=== PATIENT | male | born 1995 | race African-American/Black ===

== ENCOUNTER 2023-05-15 18:05 | Emergency (ER) | payer MEDICAID, SELFPAY ==
[2023-05-15 18:06] VITALS: BP 145/101; PULSE 84; RESP 16; TEMP 36.4; O2SAT 97; BMI 24.2
--- NOTE | 2023-05-15 18:41 | ED.VIS.GI ---
HPI HPI - GI History of Present Illness Chief Complaint: GI Bleed Informant: patient Nausea/Vomiting/Emesis GI Symptom: Positive for Nausea and Vomiting Onset: Today Quality: Positive for Blood streaks Episodes: 2 Diarrhea/Melena/Hematochezia GI Symptom: Negative for Diarrhea, Melena or Hematochezia Associated Symptoms Associated Symptoms: Negative for Dysuria, Frequency or Hematuria Narrative Narrative: Patient presents with 2 episodes of hematemesis that occurred today. Patient states that he woke up this morning and had some vomiting. Patient states he was streaks of blood in it. Patient states that he went to work today. Patient states that he vomited while he was at work. Patient admits to a few tablespoons of blood in his emesis. Patient states he was also having some blood streaks in his emesis. Patient denies any diarrhea, melena, or hematochezia. Patient denies any urinary complaints. Patient does admit to alcohol use of approximately 8-10 beers per day. Patient also admits to occasional marijuana use. PFSH PFS Medical History no medical history no medical history Home Medications omeprazole 20 mg capsule,delayed release 20 mg PO DAILY #30 CAPSULES 05/15/23 [Rx Last Taken Unknown] Allergy/AdvReac Type Severity Reaction Status Date / Time No Known Allergies Allergy Verified 05/15/23 18:08 Surgical History (Updated 05/15/23 @ 18:[address] Oscar Garcia DO) History of herniorrhaphy Social History (Updated 05/15/23 @ 18:[address] Oscar Garcia DO) Smoking Status: Current every day smoker tobacco type: cigarettes alcohol intake: current alcohol intake frequency: 3 or more drinks per day Alcohol type: beer substance use type: marijuana ROS ROS ED Constitutional Constitutional ED: Denies chills or fever(s) Eyes Eyes: Denies blurry vision or change in vision ENT ENT ED: Denies rhinorrhea or sore throat Cardiovascular Cardiovascular: Denies chest pain or palpitations Respiratory/Chest Respiratory/Chest: Denies cough or dyspnea Gastrointestinal Gastrointestinal: Reports vomiting; Denies nausea Genitourinary Genitourinary ED: Denies dysuria or hematuria Musculoskeletal Musculoskeletal: Denies back pain or neck pain Integumentary Denies abscess or rash Neurologic Neurologic: Denies headache(s) or weakness Allergic/Immunologic Allergic/Immunologic ED: Denies mouth swelling or urticaria EXAM Physical Exam Const Vital Signs: 05/15/23 18:06 Temperature 97.5 F L Temperature Source Temporal Pulse Rate 84 Respiratory Rate 16 Blood Pressure 145/101 H Blood Pressure Mean 115 Pulse Ox 97 Oxygen Delivery Method Room Air Positive well nourished and well developed General Appearance ED: well developed and NAD HEENT Reports moist mucous membranes and dry mucous membranes Mouth ED: Yes dry mucous membranes Mouth: dry mucous membranes Resp normal respiratory effort and clear to auscultation bilaterally Cardio regular rate and regular rhythm GI non-tender and non-distended Palpation: soft Extremity full ROM General Extremety ED: Negative for edema or tenderness General Extremity: Negative for edema Neuro CN's II-XII intact bilaterally, moves all extremities and no sensory deficits noted Sensorium / Orientation: alert Motor Exam: strength 5/5 throughout Psych mental status grossly normal and thought process normal MDM MDM MDM Narrative Medical decision making narrative: Differential diagnosis includes alcoholic gastritis, coagulopathy, Estrellita-Mccoy tear, pancreatitis, and peptic ulcer disease. CBC will be obtained to assess for leukocytosis and anemia. Comprehensive metabolic profile will be obtained to assess for hepatic function, renal function, and electrolyte abnormality. Lipase will be obtained to assess for pancreatitis. PT was INR and PTT will be obtained to assess for coagulopathy. Chest x-ray will be obtained to assess for pneumonia and pneumothorax. Lab Data Attestation: I reviewed the patient's lab results. Lab results narrative: CBC was reviewed and was within normal limits. PT was INR and PTT was reviewed and was within normal limits. Comprehensive metabolic profile was reviewed. AST was slightly elevated at 99 and ALT was 109. The remainder was within normal limits. Lipase was reviewed and was normal at 48. Labs: Laboratory Results - last 24 hr 05/15/23 19:05 WBC 5.5 RBC 4.84 Hgb 15.7 Hct 45.6 MCV 94.2 H MCH 32.4 H MCHC 34.4 RDW Std Deviation 47.7 H RDW Coeff of Man 13.6 Plt Count 234 MPV 9.2 Immature Gran % (Auto) 0.600 Neut % (Auto) 67.1 Lymph % (Auto) 18.7 L Price % (Auto) 8.8 Eos % (Auto) 3.7 Baso % (Auto) 1.1 H Absolute Neuts (auto) 3.7 Absolute Lymphs (auto) 1.02 Nucleated RBC % 0 PT 12.4 INR 0.9 APTT 27.1 Sodium 140 Potassium 4.1 Chloride 106 Carbon Dioxide 26.0 Anion Gap 8 BUN 9 Creatinine 1.11 Estim Creat Clear Calc 94.29 Est GFR (MDRD) Af Amer 103 Est GFR (MDRD) Non-Af 85 BUN/Creatinine Ratio 8.1 L Glucose 93 Calcium 9.1 Total Bilirubin 0.30 AST 99 H ALT 109 H Alkaline Phosphatase 88 Total Protein 8.3 H Albumin 4.2 Globulin 4.1 Albumin/Globulin Ratio 1.0 Lipase 48 Radiography Chest X-Ray - ED: 2 View, Read by ED Physician, Read by Radiologist and No Acute Disease Diagnostic Testing: Clinical Impression(s) from Imaging Studies Chest X-Ray 05/15/23 19:11 IMPRESSION: Normal x-ray examination of the chest. Electronically Signed: Anibal Leal MD at 19:59 EST Reading Location ID and State: [address] [place] [address] Tel , Service support , PA and lateral chest x-ray was obtained. There are 2 views. On my independent interpretation, lung rueda are clear. There is normal cardiac silhouette. Bony thorax is normal. There is no acute process noted. Radiologist also interpreted the x-ray and agrees. Treatment and Re-Evaluation :: Patient was given IV fluids, Zofran, and Protonix. Patient is feeling better on reevaluation. Patient was advised of his findings. Patient was instructed to stop drinking alcohol. Patient was advised that this most likely alcoholic gastritis. Patient was given a prescription for omeprazole. Patient was instructed to follow-up with his primary care physician in 5 to 7 days. Patient understood and was agreeable with the plan. All questions were answered. Discharge Plan Triage Chief Complaint: GI Bleed ED Provider: Oscar Garcia Dx/Rx/DC Orders Clinical Impression: Alcoholic gastritis with bleeding Instructions: ED Gastritis (Adult) Prescriptions: New omeprazole [omeprazole] 20 mg capsule,delayed release(DR/EC) 20 mg PO DAILY Qty: 30 0RF Primary Care Provider: Care Physician,No Primary Referrals: Marielena Lema [Non-Staff] - 5-7 Days Care Physician,No Primary [Primary Care Provider] - [facility] [Non-Staff] - 5-7 Days Disposition Disposition: Home, Self Care
--- NOTE | 2023-05-15 19:11 | RAD_ITS ---
STUDY: X-RAY CHEST REASON FOR EXAM: Male, 27 years old. Vomiting TECHNIQUE: Frontal and lateral views of the chest. COMPARISON: None. FINDINGS: The lungs are clear and expanded. There is no demonstrated pleural abnormality. Normal size heart. Normal mediastinum and keila. Normal visualized pulmonary arteries. Normal visualized aortic arch and descending thoracic aorta. Normal visualized thoracic spine. Normal visualized ribs, clavicles, and shoulders. There is no demonstrated abnormality of the visualized soft tissue structures of the upper abdomen. RAD/Chest PA and Lateral IMPRESSION: Normal x-ray examination of the chest. Electronically Signed: Anibal Leal MD at 19:59 EST ,
[2023-05-15 19:21] LABS: Absolute Lymphocyte Count 1.02 X10^3/uL (0.83-4.51); Absolute Neutrophil Count 3.7 X10^3/uL (2.0-7.7); Basophil# 0.06 X10^3/uL; Basophil% 1.1 % (0-1); Eosinophils% 3.7 % (0-5); Hematocrit 45.6 % (40-54); Hemoglobin 15.7 g/dL (13.0-16.5); Lymphocyte # 1.02 X10^3/ul (0.83-4.51); Lymphocyte % 18.7 % (19-41); Mean Corp Hgb Conc 34.4 g/dL (32-36); Mean Corpuscular Hgb 32.4 pg (27.0-32.0); Mean Corpuscular Volume 94.2 fL (80-94); Mean Platelet Vol. 9.2 fl (6.2-12.0); Monocyte# 0.48 X10^3/uL; Monocyte% 8.8 % (0-10); NRBC Flagged by Analyzer 0 % (0-5); Neutrophil # 3.66 X10^3/uL (2.7-7.7); Neutrophil % 67.1 % (47-70); Platelet Count 234 K/mm3 (150-450); RBC Distribution Width CV 13.6 % (11.6-14.6); RBC Distribution Width SD 47.7 fl (35.1-43.9); Red Blood Count 4.84 M/mm3 (4.6-6.2); White Blood Count 5.5 K/mm3 (4.4-11.0)
[2023-05-15 19:30] LABS: International Normalized Ratio 0.9; Partial Thromboplast Time 27.1 Seconds (24.1-36.2); Prothrombin Time (Protime)PT. 12.4 SECONDS (11.7-14.9)
[2023-05-15] MEDS: Pantoprazole Sodium 80 MG in 0.9% Normal Saline (50mL Bag) 15 ML 420 MG IV BOLUS (19:31)
[2023-05-15] MEDS: 0.9% Normal Saline (1000mL) 1,000 ML 1000 ML IV (19:32)
[2023-05-15] MEDS: Ondansetron 4 MG/2 ML Vial IV (19:32)
[2023-05-15 19:42] LABS: AST(SGOT) 99 U/L (15-37); Alanine Aminotransfer ALT/SGPT 109 U/L (16-61); Albumin, Serum 4.2 g/dL (3.2-5.0); Alkaline Phosphatase 88 U/L (45-117); Anion Gap 8 (5-15); BUN 9 mg/dL (7-18); BUN/Creat Ratio 8.1 RATIO (10-20); Calcium,Total 9.1 mg/dL (8.5-10.1); Chloride 106 mmol/L (98-107); Creatinine, Serum 1.11 mg/dL (0.70-1.30); EST Glomerular Filtration Rate 85 mL/min (>60); Est Glom Filt Rate - Afr Amer 103 mL/min (>60); Estimated Creatinine Clearance 94.29 ml/min; Globulin 4.1 g/dL (2.2-4.2); Glucose 93 mg/dL (74-106); Lipase 48 U/L (13-75); Potassium 4.1 mmol/L (3.5-5.1); Protein, Total 8.3 g/dL (6.4-8.2); Sodium Level 140 mmol/L (136-145)
[2023-05-15 20:46] VITALS: BP 120/74; PULSE 87; RESP 16; TEMP 36.3; O2SAT 97
[2023-05-15 20:52] VITALS: BP 123/87; PULSE 87; RESP 16; TEMP 36.2; O2SAT 97
== END 2023-05-15 21:02 | disposition home or self-care (01) ==
PROVIDERS: Emergency Provider Emergency Medicine; Visit Provider Emergency Medicine
DX: K29.21 Alcoholic gastritis with bleeding (principal); F17.210 Nicotine dependence, cigarettes, uncomplicated; F10.90 Alcohol use, unspecified, uncomplicated
CPT/HCPCS: 71046; 80053; 83690; 85025; 85610; 85730; 96361; 96374; 96375; 99283; J7030; J2405; J3490

== ENCOUNTER 2023-06-13 00:32 | Emergency (ER) | payer MEDICAID, SELFPAY ==
[2023-06-13 00:33] VITALS: BP 145/96; PULSE 87; RESP 16; TEMP 36.1; O2SAT 99; BMI 21.9
[2023-06-13 00:35] VITALS: BP 145/86; PULSE 87; RESP 16; TEMP 36.1; O2SAT 99
--- NOTE | 2023-06-13 00:43 | EX.ED.DYSGE1 ---
HPI History of Present Illness Chief Complaint: Abscess Detail of Chief Complaint: Facial abscess Informant: patient Narrative Narrative: Patient presents with complaint of a facial abscess to the right lower jaw. Patient states that he had 1 on the left that had to be I&D in the past. Patient does have a dean. He noticed some swelling a month ago but recently progressed. Denies fevers or chills or sweats. PFSH PFSH Home Medications omeprazole 20 mg capsule,delayed release 20 mg PO DAILY #30 CAPSULES 05/15/23 [Rx Last Taken Unknown] clindamycin HCl 300 mg capsule (Cleocin HCl) 300 mg PO Q6H #40 CAPSULES 06/13/23 [Rx Last Taken Unknown] Allergy/AdvReac Type Severity Reaction Status Date / Time No Known Allergies Allergy Verified 06/13/23 00:33 Surgical History History of herniorrhaphy Social History (Updated 05/15/23 @ 18:[address] Oscar Garcia, DO) Smoking Status: Current every day smoker tobacco type: cigarettes alcohol intake: current alcohol intake frequency: 3 or more drinks per day Alcohol type: beer substance use type: marijuana ROS ROS ED Review of Systems ROS Unobtainable: other Constitutional Constitutional ED: Reports lethargy; Denies chills, fever(s), sweats or weight loss Eyes Eyes: Denies blurry vision, change in vision or diplopia ENT ENT ED: Reports other Details: Right facial abscess ; Denies rhinorrhea or sore throat Cardiovascular Cardiovascular: Denies chest pain, orthopnea or racing heartbeat Respiratory/Chest Respiratory/Chest: Denies cough, dyspnea, dyspnea on exertion, orthopnea or sputum Gastrointestinal Gastrointestinal: Denies abdominal pain, diarrhea, nausea or vomiting Genitourinary Genitourinary ED: Denies dysuria, hematuria or urinary frequency Musculoskeletal Musculoskeletal: Denies arthralgias, back pain, myalgias or neck pain Integumentary Denies abscess, Abrasions or rash Neurologic Neurologic: Denies headache(s) or weakness Psychiatric Psychiatric: Denies anxiety, depression or suicidal thoughts Endocrine Endocrinology: Denies polydipsia, polyphagia or polyuria Hematologic/Lymphatic Hematologic/Lymphatic: Denies easy bleeding, easy bruising or lymphadenopathy Allergic/Immunologic Allergic/Immunologic ED: Denies mouth swelling, tongue swelling or urticaria EXAM Physical Exam Const Vital Signs: 06/13/23 00:33 06/13/23 00:35 06/13/23 01:16 Temperature 97 F L 97 F L 97 F L Temperature Source Temporal Temporal Pulse Rate 87 87 87 Respiratory Rate 16 16 16 Blood Pressure 145/96 H 145/86 H 145/86 H Blood Pressure Mean 112 105 105 Pulse Ox 99 99 99 Positive well nourished and well developed General Appearance ED: well developed and NAD HEENT Reports TM's clear and moist mucous membranes HEENT Narrative: Patient has a soft tissue swelling over the right lower mandible. He does have a dean. There is fluctuance and faint erythema. No dental tenderness. normocephalic and atraumatic; Negative for trauma or tenderness Tympanic Membrane ED: Yes TM's clear Eyes PERRL and EOMs intact bilaterally General Eye ED: Negative for pale conjunctiva or scleral icterus Neck no lymphadenopathy, supple and no JVD General: Negative for tenderness Chest Wall inspection of chest normal and palpation of chest normal Chest: Negative for tenderness Resp normal respiratory effort and clear to auscultation bilaterally Effort and Inspection: Negative for respiratory distress or pain with movement Auscultation: Negative for rhonchi, wheezes or diminished lung sounds Cardio regular rate, regular rhythm, S1 normal heart sound, S2 normal heart sound and no murmurs Peripheral Pulses: pulses 2+ throughout GI normal to inspection, nondistended, normoactive bowel sounds, soft to palpation, non-tender, non-distended and no masses Back/Spine no CVA tenderness and no thoracic nor lumbar tenderness Extremity normal to inspection General Extremety ED: Negative for edema General Extremity: Negative for edema Neuro oriented x3, CN's II-XII intact bilaterally, no sensory deficits noted and gait normal Sensorium / Orientation: awake, alert, oriented to person, oriented to place and oriented to time Motor Exam: strength 5/5 throughout and strength abnormal Psych mental status grossly normal Skin no rashes or lesions noted and no wounds MDM MDM MDM Narrative Medical decision making narrative: Patient presents with a right-sided facial abscess with a dean. He has had similar abscess on the opposite side. He was offered incision and drainage which he agreed to. See procedure note. Patient will be started on clindamycin. He will be given referral to primary care for follow-up within next 3 to 5 days. Advised to return if increasing pain, swelling, fevers or chills, or condition worsening way. Procedures Other Procedures Procedure(s): Incision and drainage of suspected abscess. Area anesthetized locally with 1% lidocaine total of 3 cc. Skin cleansed with Shur-Clens and irrigated with saline. Using an 11 blade a 2 cm incision made into the fluctuant portion of suspected abscess and large amount of free-flowing purulent debris was expressed. There seem to be a thick rind associated with this that was also removed. Patient Toller procedure well. No significant bleeding. Clean dressing applied. Discharge Plan Triage Chief Complaint: Abscess ED Provider: Flaca Yoon Dx/Rx/DC Orders Clinical Impression: Abscess of face Instructions: ED Abscess Incision And Drainage Prescriptions: New clindamycin HCl [Cleocin HCl] 300 mg capsule 300 mg PO Q6H Qty: 40 0RF No Action omeprazole [omeprazole] 20 mg capsule,delayed release(DR/EC) 20 mg PO DAILY Qty: 30 0RF Stand Alone Forms: ED Work / School Excuse Primary Care Provider: Care Physician,No Primary Referrals: Kevin Salas MD [Med Staff - Active Staff] - 3-5 Days Care Physician,No Primary [Primary Care Provider] - Disposition Disposition: Home, Self Care Discharge Date/Time: 06/13/23 01:17
[2023-06-13] MEDS: Clindamycin HCl 150 MG Capsule 300 MG PO (01:08)
[2023-06-13 01:16] VITALS: BP 145/86; PULSE 87; RESP 16; TEMP 36.1; O2SAT 99
== END 2023-06-13 01:17 | disposition home or self-care (01) ==
LOC: ED 01:09
PROVIDERS: Emergency Provider Emergency Medicine; Visit Provider Emergency Medicine
DX: L02.01 Cutaneous abscess of face (principal); F17.210 Nicotine dependence, cigarettes, uncomplicated
CPT/HCPCS: 10060; 99282

== ENCOUNTER 2023-07-28 14:18 | Emergency (ER) | payer MEDICAID, SELFPAY ==
[2023-07-28 14:19] VITALS: BP 143/84; PULSE 113; PULSE 114; RESP 12; RESP 14; TEMP 36.1; O2SAT 97; BMI 24.4
[2023-07-28 14:21] VITALS: BP 143/84; PULSE 114; RESP 14; TEMP 36.1; O2SAT 100
--- NOTE | 2023-07-28 15:09 | EX.ED.DYSGE1 ---
HPI History of Present Illness Chief Complaint: Abscess PFSH PFSH Home Medications omeprazole 20 mg capsule,delayed release 20 mg PO DAILY #30 CAPSULES 05/15/23 [Rx Last Taken Unknown] clindamycin HCl 300 mg capsule (Cleocin HCl) 300 mg PO Q6H #40 CAPSULES 06/13/23 [Rx Last Taken Unknown] clindamycin HCl 300 mg capsule 300 mg PO Q8H #30 caps 07/28/23 [Rx Last Taken Unknown] Allergy/AdvReac Type Severity Reaction Status Date / Time No Known Allergies Allergy Verified 06/13/23 00:33 Surgical History History of herniorrhaphy Social History (Updated 05/15/23 @ 18:[address] Oscar Garcia, DO) Smoking Status: Current every day smoker tobacco type: cigarettes alcohol intake: current alcohol intake frequency: 3 or more drinks per day Alcohol type: beer substance use type: marijuana EXAM Physical Exam Const Vital Signs: 07/28/23 14:19 07/28/23 14:19 07/28/23 14:21 Temperature 97 F L 97 F L Temperature Source Temporal Temporal Pulse Rate 114 H 113 H 114 H Respiratory Rate 12 14 14 Blood Pressure 143/84 H 143/84 H 143/84 H Blood Pressure Mean 103 103 103 Pulse Ox 97 97 100 Oxygen Delivery Method Room Air Room Air Room Air [facility] MDM Narrative Medical decision making narrative: HISTORY OF PRESENT ILLNESS: 27-year-old male presents with concern for facial abscess. He states he was seen here recently for similar and had it drained however he has not taken his antibiotics. He states REVIEW OF SYSTEMS: Pertinent positives: Facial swelling Pertinent negatives: Difficulty swallowing, vomiting PHYSICAL EXAM: Nursing triage notes reviewed, Vital signs reviewed Constitutional: please see mdm HENT: MMM, large 3 x 3 cm area of fluctuance induration to the right jaw consistent with abscess. No crepitus or bullae noted. No submandibular edema. Uvula midline. Eyes: Pupils equal round and reactive to light, Extraocular muscles intact Neck: No stridor, no JVD, full neck ROM Lungs: Clear to auscultation, No wheezing or rales. No increased work of breathing, no conversational dyspnea, no accessory muscle use, no nasal flaring. No respiratory distress noted Heart: Regular rate and rhythm, No murmurs, No rubs and No gallops, 2+ distal pulses (radial, femoral, posterior tibial) in all extremities Skin: No abscess as noted above MEDICAL DECISION MAKING: Chief Complaint: Facial abscess External records reviewed: Reviewed prior procedure note detailing incision and drainage in May 2022 Factors affecting care: History of facial abscess Social determinants of health: none History obtained from others: none Consults: none MDM Narrative: Patient was initially tachycardic otherwise afebrile. Exam with evidence of abscess. No submandibular edema noted I considered the following differential diagnosis: Cellulitis, abscess, necrotizing fasciitis Performed incision and drainage as below Procedure: Incision and Drainage simple abscess noted to right jaw The procedure was performed by myself. Location: Right jaw Risks and benefits: Risks, benefits, and alternatives were discussed. Questions were sought and answered, and verbal consent provided for the procedure. Anesthesia: 1% lidocaine without epinephrine Procedure Description: Used 18-gauge needle with aspiration of 3 cc of purulent fluid The patient tolerated the procedure well without complications. Gave p.o. clindamycin for 10-day course. Gave PCP follow-up. Given strict return precautions. The patient and/or family, caregivers express understanding. The patient and/or family, caregivers agrees with the plan. Shared decision making: I will have a discussion with the patient and or visitors regarding risk/benefits of further testing or admission. They will be made aware of of the risk/benefits inherent in this decision they will be given the opportunity to voice understanding. Total critical care time today provided was at least 0 minutes. This excludes separately billable procedures. Critical care time (if documented) is secondary to the patient having high probability of clinically significant/life threatening deterioration in the patient's condition which required my urgent intervention. Impression: 1. Facial abscess 2. Tachycardia Dispo: Discharge home This note was generated with [employer] dictation software. It may contain incorrect words, spelling, and punctuation that were not noted in review of the chart prior to signing. Discharge Plan Triage Chief Complaint: Abscess ED Provider: Hira Barakat Dx/Rx/DC Orders Instructions: ED Abscess Incision And Drainage Prescriptions: New clindamycin HCl 300 mg capsule 300 mg PO Q8H Qty: 30 0RF No Action omeprazole [omeprazole] 20 mg capsule,delayed release(DR/EC) 20 mg PO DAILY Qty: 30 0RF clindamycin HCl [Cleocin HCl] 300 mg capsule 300 mg PO Q6H Qty: 40 0RF Stand Alone Forms: ED Work / School Excuse Primary Care Provider: Care Physician,No Primary Referrals: Kevin Salas MD [Med Staff - Active Staff] - Activity Restrictions/Additional Instructions: Thank you for trusting us with your care today! Please take Tylenol (2 pills, 650 mg), ibuprofen (2 pills, 400 mg) every 6 hours as needed for pain and fever control. Please take clindamycin as prescribed. Please continue entire course Please wash your face twice a day. Please try to keep your facial hair and short as to facilitate bacterial clearance. Please return to the emergency department if your symptoms change or worsen. Specifically develop swelling underneath anything jaw, difficulty swallowing, vomiting or inability tolerate antibiotics by mouth Please follow with your primary care physician for further outpatient evaluation and management. Disposition Disposition: Home, Self Care
[2023-07-28] MEDS: Clindamycin HCl 150 MG Capsule 300 MG PO (15:54)
== END 2023-07-28 16:31 | disposition home or self-care (01) ==
LOC: ED 16:10
PROVIDERS: Emergency Provider Emergency Medicine; Visit Provider Emergency Medicine
DX: L02.01 Cutaneous abscess of face (principal); R00.0 Tachycardia, unspecified; F17.210 Nicotine dependence, cigarettes, uncomplicated
CPT/HCPCS: 10060; 99282

== ENCOUNTER 2023-11-23 03:20 | Emergency (ER) | payer MEDICAID, SELFPAY ==
[2023-11-23 03:21] VITALS: BP 141/84; PULSE 79; RESP 20; TEMP 36.7; O2SAT 100; BMI 22.5
[2023-11-23 03:24] VITALS: BP 141/84; PULSE 79; RESP 20; TEMP 36.7; O2SAT 100
--- NOTE | 2023-11-23 03:44 | EDS_ITS ---
HPI History of Present Illness Chief Complaint: Other, Pain/Inj Informant: patient Narrative Narrative: Patient is a 28-year-old male who reports a history of gastritis for which he takes omeprazole. He also reports he has recently been seen for a right sided facial abscess. He states that he took the antibiotic for a few days which was clindamycin and then stopped it. He states that it has been a few weeks since he used the antibiotic. He reports that over the last 1 to 2 days he has noticed swelling and pain along the middle of his lower lip/chin. He denies any trauma fevers or chills. He states that hurts to open his mouth but he does not have any difficulty breathing or swallowing. He is concerned about potential infection and therefore comes in for evaluation [facility] Home Medications ?Medication ?Instructions ?Recorded ?Last Taken ?Type amoxicillin 875 mg-potassium 1 tab PO BID 10 days #20 tabs 11/23/23 Unknown Rx clavulanate 125 mg tablet ibuprofen 600 mg tablet 600 mg PO 4X/DAY PRN pain #40 tabs 11/23/23 Unknown Rx omeprazole 20 mg capsule,delayed 40 mg PO DAILY 11/23/23 Unknown History release oxycodone-acetaminophen 5 mg-325 1 tab PO Q6H PRN pain 3 days #12 11/23/23 Unknown Rx mg tablet (Percocet) tabs Allergy/AdvReac Type Severity Reaction Status Date / Time No Known Allergies Allergy Verified 06/13/23 00:33 Surgical History History of herniorrhaphy Social History (Updated 05/15/23 @ 18:[address] Oscar Garcia, ) Smoking Status: Current every day smoker tobacco type: cigarettes alcohol intake: current alcohol intake frequency: 3 or more drinks per day Alcohol type: beer substance use type: marijuana ROS ROS ED Constitutional Constitutional ED: Denies chills or fever(s) ENT ENT ED: Reports other Details: Positive lip/chin pain and swelling ; Denies sore throat Cardiovascular Cardiovascular: Denies chest pain Respiratory/Chest Respiratory/Chest: Denies cough or dyspnea Gastrointestinal Gastrointestinal: Denies abdominal pain, diarrhea, nausea or vomiting Genitourinary Genitourinary ED: Denies dysuria Musculoskeletal Musculoskeletal: Denies myalgias or neck pain Integumentary Reports abscess Neurologic Neurologic: Denies headache(s) Hematologic/Lymphatic Hematologic/Lymphatic: Denies easy bleeding or easy bruising Allergic/Immunologic Allergic/Immunologic ED: Denies mouth swelling, tongue swelling or urticaria EXAM Physical Exam Const Vital Signs: 11/23/23 03:21 11/23/23 03:24 11/23/23 03:25 Temperature 98.0 F 98.0 F Temperature Source Temporal Oral Pulse Rate 79 79 Respiratory Rate 20 H 20 H Respiratory Effort Normal Non-Labored Respiratory Pattern Normal Blood Pressure 141/84 H 141/84 H Blood Pressure Mean 103 103 Pulse Ox 100 100 Oxygen Delivery Method Room Air Room Air 11/23/23 03:51 Temperature 99.3 F H Temperature Source Pulse Rate 83 Respiratory Rate 16 Respiratory Effort Respiratory Pattern Blood Pressure 126/67 H Blood Pressure Mean 86 Pulse Ox 100 Oxygen Delivery Method Positive well nourished and well developed General Appearance ED: well developed HEENT HEENT Narrative: No findings of ANUG Scattered dental caries noted There is mild soft tissue swelling in the midline of the lower jaw consistent with developing dental abscess. No active drainage. No airway edema or compromise. No trismus change in voice or difficulty with secretions Eyes PERRL and EOMs intact bilaterally General Eye ED: Negative for scleral icterus Neck supple Neck Narrative: No brawny edema in the submental space to suggest Pop's angina Resp normal respiratory effort and clear to auscultation bilaterally Cardio regular rate and regular rhythm Extremity normal to inspection Neuro oriented x3, CN's II-XII intact bilaterally and no sensory deficits noted Sensorium / Orientation: alert Motor Exam: strength 5/5 throughout Psych mental status grossly normal Skin Skin Narrative: Soft tissue changes of erythema and induration that is roughly 1 x 2 cm in size to the anterior midline chin as documented above MDM MDM MDM Narrative Medical decision making narrative: Patient presented to the ER hypertensive otherwise with stable vitals. Differential diagnosis is for dental abscess versus soft tissue skin abscess versus posterior pharynx infection such as strep throat or peritonsillar abscess. By physical exam patient has no signs of ANUG and there are no signs of infection of the posterior pharynx such as strep or peritonsillar abscess. Physical exam shows changes consistent with developing early dental abscess. However he does not have findings of systemic infection nor is he had difficulty with secretions or airway compromise so there is no need for imaging or laboratory studies at this time. We discussed incision and drainage but the patient states that he does not want that performed. Therefore we will start with symptomatic care of antibiotics and salt water gargles and he agrees to return if the infection fails to improve or he has any difficulty swallowing or breathing. However at this time as he does not have airway compromise or respiratory distress and his physical exam does not suggest Pop's angina or ANUG or systemic infection he is otherwise safe for discharge History & Record Review Discussion w/independent historian: Patient and Friend Discharge Plan Triage Chief Complaint: Other, Pain/Inj ED Provider: Lauro Rodrigues Dx/Rx/DC Orders Clinical Impression: Abscess, dental, GERD (gastroesophageal reflux disease), Hypertension Instructions: Dental Abscess Prescriptions: New amoxicillin-pot clavulanate 875-125 mg tablet 1 tab PO BID 10 Days Qty: 20 0RF oxycodone-acetaminophen [Percocet] 5-325 mg tablet 1 tab PO Q6H PRN (Reason: pain) 3 Days Qty: 12 0RF ibuprofen 600 mg tablet 600 mg PO 4X/DAY PRN (Reason: pain) Qty: 40 0RF No Action omeprazole 20 mg capsule,delayed release(DR/EC) 40 mg PO DAILY Primary Care Provider: Lizzie Samayoa Referrals: Care Physician,No Primary [Non-Staff] - Activity Restrictions/Additional Instructions: For the next 3 days please take 1 Percocet and one 600 mg ibuprofen at the same time to help control your pain better. Take the antibiotic as directed to resolve the infection and use salt water gargles to help shrink the area up as well. If there is no improvement or you have any further concerns please return to the ER for repeat evaluation. Otherwise follow-up with your dentist secondary to your abscess Print Language: Hebrew Disposition Disposition: Home, Self Care Discharge Date/Time: 11/23/23 04:03
[2023-11-23] MEDS: Amox/Clavulanate 875 MG Tablet PO (03:50)
[2023-11-23] MEDS: oxyCODONE 5 MG Tablet 10 MG PO (03:50)
[2023-11-23 03:51] VITALS: BP 126/67; PULSE 83; RESP 16; TEMP 37.4; O2SAT 100
== END 2023-11-23 04:03 | disposition home or self-care (01) ==
LOC: ED 04:00
PROVIDERS: Emergency Provider Emergency Medicine; PCP Family Medicine; Visit Provider Emergency Medicine
DX: K04.7 Periapical abscess without sinus (principal); K21.9 Gastro-esophageal reflux disease without esophagitis; I10 Essential (primary) hypertension; Z79.899 Other long term (current) drug therapy; F17.210 Nicotine dependence, cigarettes, uncomplicated; K02.9 Dental caries, unspecified
CPT/HCPCS: 99284

== ENCOUNTER 2024-01-20 06:54 | Observation (INO) | payer MEDICAID, SELFPAY ==
[2024-01-20] VITALS (14 sets, daily range): BP systolic 83–127; BP diastolic 42–76; PULSE 71–91; RESP 12–20; TEMP 36.3–37.1; O2SAT 95–100; BMI 23.0; BMI 23.1
--- NOTE | 2024-01-20 | FLU_PTH ---
PATIENT: JORGE HERNANDEZ LOC: MS3 U#:[id number] AGE/SX: 28/M ROOM: [facility]317 RE01/20/[address]: Dr. Guido Petit DO : 1995 BED: 1 DIS: 01/22/2024 SPEC #: [id number] RECD: 01/21/24 07:31 STATUS: PARKER BRANDON #: [id number] ROQUE: 01/20/24 00:[address]: Guido Petit DEPT: CYTOLOGY RECD BY: Rosangela Velazquez ENTERED: 01/21/24 07:32 SP TYPE: Fluid OTHR DR: Lizzie Samayoa [facility], DO Tissues: PARACENTESIS FLUID Procedures: Special Stain Group II Surgery Specimen Level IV Cytospin Fluid HEADER OPERATION: Ultrasound guided right paracentesis PRE-OP DIAGNOSIS: Ascites TISSUE SUBMITTED: Paracentesis fluid for cytology DIAGNOSIS CYTOLOGY Paracentesis fluid for cytology (cytospin and cellblock): Negative for malignant cells. See comment. 01/22/2024 COMMENT Clinical correlation and appropriate follow up are necessary. CYTOLOGY STUDY Slides are reviewed. CYTOLOGY GROSS Received is 100 ml of hazy-yellow fluid labeled with the patient's name and and designated per the requisition as Paracentesis fluid. Submitted for cytology preparation including cell block. Mr 01/21/2024 TC:5 CPT: 95306,65264
--- NOTE | 2024-01-20 07:09 | ED.VIS.GI ---
HPI HPI - GI History of Present Illness Chief Complaint: Abd Pain Informant: patient Narrative Narrative: 28-year-old male presenting to the emergency room with abdominal bloating. Patient states that he had bloating over the past several weeks. Went to see his doctor yesterday who advised him to come to emergency. He came this morning. Patient states that he has been drinking alcohol since about the age of 13. He had been drinking 10-12 beers per day over the past several months 3 weeks he has only been able to drink up to a half a can of beer. He notes weight loss and that he is losing muscle mass. He notes hemorrhoids and rectal bleeding and rectal pain. He notes variable stool sometimes yellow and liquidy sometimes formed. He notes frequent vomiting with attempting to eat or drink. He states he utilizes cannabis to help with this. He denies any fevers. No IV drug use. No fevers. PFSH PFSH Home Medications ?Medication ?Instructions ?Recorded ?Last Taken ?Type ibuprofen 600 mg tablet 600 mg PO 4X/DAY PRN pain #40 tabs 11/23/23 Unknown Rx omeprazole 20 mg capsule,delayed 40 mg PO DAILY PRN stomach 11/23/23 Unknown History release oxycodone-acetaminophen 5 mg-325 1 tab PO Q6H PRN pain 3 days #12 11/23/23 Unknown Rx mg tablet (Percocet) tabs Allergy/AdvReac Type Severity Reaction Status Date / Time No Known Allergies Allergy Verified 01/20/24 06:56 Surgical History History of herniorrhaphy Social History Smoking Status: Current every day smoker tobacco type: cigarettes alcohol intake: current alcohol intake frequency: 3 or more drinks per day Alcohol type: beer substance use type: marijuana ROS ROS ED Constitutional Constitutional ED: Reports weight loss; Denies chills or fever(s) Eyes Eyes: Denies change in vision or diplopia ENT ENT ED: Denies ear pain, rhinorrhea or sore throat Cardiovascular Cardiovascular: Denies chest pain, orthopnea, palpitations or racing heartbeat Respiratory/Chest Respiratory/Chest: Denies cough, dyspnea or orthopnea Gastrointestinal Gastrointestinal: Reports constipation, diarrhea, nausea and vomiting; Denies abdominal pain Genitourinary Genitourinary ED: Reports other Details: Dark yellow adherent ; Denies dysuria, hematuria or urinary frequency Musculoskeletal Musculoskeletal: Denies arthralgias, back pain, myalgias or neck pain Integumentary Denies abscess or rash Neurologic Neurologic: Denies headache(s) or weakness Psychiatric Psychiatric: Denies anxiety, depression, suicidal ideation or suicidal thoughts Endocrine Endocrinology: Denies polydipsia, polyphagia or polyuria Allergic/Immunologic Allergic/Immunologic ED: Denies mouth swelling, tongue swelling or urticaria EXAM Physical Exam Const Vital Signs: 01/20/24 06:56 01/20/24 09:33 Temperature 98.2 F 98.3 F Temperature Source Oral Oral Pulse Rate 91 75 Respiratory Rate 18 20 H Blood Pressure 119/76 100/56 L Blood Pressure Mean 90 70 Pulse Ox 95 100 Oxygen Delivery Method Room Air Room Air Positive well nourished and well developed General Appearance ED: well developed and NAD HEENT Reports normocephalic, head/scalp atraumatic and moist mucous membranes Eyes PERRL and EOMs intact bilaterally General Eye ED: Yes scleral icterus Neck no lymphadenopathy, supple and no JVD Resp normal respiratory effort and clear to auscultation bilaterally Cardio regular rate, regular rhythm and no murmurs GI GI Narrative: Positive ascites Inspection: abdominal distention Auscultation: normoactive bowel sounds Palpation: soft Back/Spine no CVA tenderness and normal ROM Extremity normal to inspection General Extremety ED: Negative for edema General Extremity: Negative for edema Neuro oriented x3 and CN's II-XII intact bilaterally Sensorium / Orientation: alert Motor Exam: strength 5/5 throughout Psych mental status grossly normal Mood & Affect: Negative for depressed or tearful Skin no rashes or lesions noted and no wounds MDM MDM MDM Narrative Medical decision making narrative: Differential diagnosis includes acute liver failure/hepatitis alcohol use disorder electrolyte abnormalities hyperbilirubinemia anemia dehydration anemia pancreatitis malignancy Patient's white count 8.7 hemoglobin is 11 with an MCV of 95.3 platelet count is 170. Sodium is 136 CO2 is 20 anion gap of 12 creatinine 1.04 glucose of 100 patient's bilirubin 3.8 direct bilirubin 2.6 AST of 236 ALT of 101 alk phos of 287 lipase is 101 alcohol level 295. Total protein is within normal limits with an albumin low at 2.3. Urinalysis with no ketones or gross infection. Spoke with gastroenterology as well as the hospitalist. Plan is admission. I updated the patient. He is more concerned as to whether or not he is going to be able to charge his phone when he can go outside and smoke and how long a paracentesis may take. I reiterated the point that it would appear that his liver is failing him and that he needs to quit drinking. History & Record Review Discussion w/independent historian: Patient Lab Data Attestation: I reviewed the patient's lab results. Labs: Laboratory Results - last 24 hr 01/20/24 01/20/24 01/20/24 07:14 07:19 08:22 WBC 8.7 RBC 3.20 L Hgb 11.0 L Hct 30.5 L MCV 95.3 H MCH 34.4 H MCHC 36.1 H RDW Std Deviation 64.8 H RDW Coeff of Man 18.8 H Plt Count 170 MPV 10.1 Immature Gran % (Auto) 0.500 Neut % (Auto) 61.3 Lymph % (Auto) 24.9 [place] % (Auto) 9.3 Eos % (Auto) 2.4 Baso % (Auto) 1.6 H Absolute Neuts (auto) 5.3 Absolute Lymphs (auto) 2.17 Nucleated RBC % 0 Differential Comment SCANNED Reactive Lymphocytes 1+ PT 16.6 H INR 1.3 APTT 31.7 Sodium 136 Potassium 3.5 Chloride 104 Carbon Dioxide 20.0 L Anion Gap 12 BUN 3 L Creatinine 1.04 Estim Creat Clear Calc 99.75 Est GFR (MDRD) Af Amer 110 Est GFR (MDRD) Non-Af 91 BUN/Creatinine Ratio 2.9 L Glucose 100 Calcium 8.3 L Total Bilirubin 3.80 H Direct Bilirubin 2.60 H AST 236 H ALT 101 H Alkaline Phosphatase 287 H Total Protein 7.8 Albumin 2.3 L Globulin 5.5 H Lipase 101 H Urine Color Yellow Urine Clarity Clear Urine pH 6.5 Ur Specific [place] 1.005 Urine Protein 30 H Urine Glucose (UA) Normal Urine Ketones Negative Urine Occult Blood Negative Urine Nitrite Positive H Urine Bilirubin 1 H Urine Urobilinogen 4 H Ur Leukocyte Esterase 25 H Urine RBC 0 SEEN Urine WBC 0-5 SEEN Ur Squamous Epith Cells 0-5 SEEN Urine Bacteria 0 SEEN Urine Mucus 0 SEEN Ethyl Alcohol 295.0 Radiography Diagnostic Testing: Clinical Impression(s) from Imaging Studies Abdomen/Pelvis CT 01/20/24 07:40 IMPRESSION: Diffuse ascites. Mild degree of left basilar atelectasis. Altered haustral pattern in the rectosigmoid colon suggestive of possible colitis. Electronically Signed: Bobo Ayers MD at 8:49 EDT , Management Discussion w/another healthcare provider: Hospitalist and Mathematics Academic Chair (Dr Hansen (GI)) Discharge Plan Dx/Rx/DC Orders Clinical Impression: Alcohol use disorder, Acute alcoholic hepatitis, Ascites Disposition Disposition: Acute Care Hospital [facility]
[2024-01-20 07:20] LABS: Absolute Lymphocyte Count 2.17 X10^3/uL (0.83-4.51); Absolute Neutrophil Count 5.3 X10^3/uL (2.0-7.7); Basophil# 0.14 X10^3/uL; Basophil% 1.6 % (0-1); Eosinophil# 0.21 X10^3/uL; Eosinophils% 2.4 % (0-5); Hematocrit 30.5 % (40-54); Lymphocyte # 2.17 X10^3/ul (0.83-4.51); Lymphocyte % 24.9 % (19-41); Mean Corp Hgb Conc 36.1 g/dL (32-36); Mean Corpuscular Hgb 34.4 pg (27.0-32.0); Mean Corpuscular Volume 95.3 fL (80-94); Mean Platelet Vol. 10.1 fl (6.2-12.0); Monocyte# 0.81 X10^3/uL; Monocyte% 9.3 % (0-10); NRBC Flagged by Analyzer 0 % (0-5); Neutrophil # 5.33 X10^3/uL (2.7-7.7); Neutrophil % 61.3 % (47-70); POSITIVE MORPHOLOGY YES; Platelet Count 170 K/mm3 (150-450); RBC Distribution Width CV 18.8 % (11.6-14.6); RBC Distribution Width SD 64.8 fl (35.1-43.9); White Blood Count 8.7 K/mm3 (4.4-11.0)
[2024-01-20 07:31] LABS: Differential Indicated SCAN CRITERIA MET
--- NOTE | 2024-01-20 07:34 | ED.RN ---
PT DOES APPEAR JAUNDICED.
[2024-01-20 07:37] LABS: AST(SGOT) 236 U/L (15-37); Alanine Aminotransfer ALT/SGPT 101 U/L (16-61); Albumin, Serum 2.3 g/dL (3.2-5.0); Alkaline Phosphatase 287 U/L (45-117); Anion Gap 12 (5-15); BUN 3 mg/dL (7-18); BUN/Creat Ratio 2.9 RATIO (10-20); Calcium,Total 8.3 mg/dL (8.5-10.1); Chloride 104 mmol/L (98-107); Creatinine, Serum 1.04 mg/dL (0.70-1.30); EST Glomerular Filtration Rate 91 mL/min (>60); Est Glom Filt Rate - Afr Amer 110 mL/min (>60); Estimated Creatinine Clearance 99.75 ml/min; Globulin 5.5 g/dL (2.2-4.2); Glucose 100 mg/dL (74-106); Lipase 101 U/L (13-75); Potassium 3.5 mmol/L (3.5-5.1); Protein, Total 7.8 g/dL (6.4-8.2); Sodium Level 136 mmol/L (136-145)
--- NOTE | 2024-01-20 07:40 | CT_ITS ---
STUDY: CT ABDOMEN AND PELVIS WITH CONTRAST REASON FOR EXAM: Male, 28 years old. Abdominal pain and distension RADIATION DOSAGE (If Supplied By Facility): CTDIvol = ( 10.97 ) mGy, DLP = ( 478.29 ) mGycm TECHNIQUE: Transaxial images were obtained from the dome of the diaphragm to the symphysis pubis without oral contrast. IV 100mL Isovue-370 was administered. Sagittal and coronal images were reconstructed. Individualized dose optimization techniques were used for this CT. COMPARISON: None. FINDINGS: Diffuse ascites. Minimal degree of left basilar atelectasis. The visualized portions of the heart are within normal limits. Normal liver. Minimally thickened gallbladder wall most likely secondary to the fluid in the pericholecystic space. Normal spleen. Normal pancreas. Normal bilateral adrenal glands. Normal right kidney. Normal left kidney. There is a small hiatal hernia. Normal small intestine. Abnormal haustral pattern of the rectosigmoid colon suggestive of possible colitis. The appendix is visualized and appears normal. Normal abdominal aorta. Normal inferior vena cava. Normal retroperitoneum. Normal urinary bladder. Normal abdominal wall. Normal osseous structures. CT/Abdomen/Pelvis W IV Cont ONLY IMPRESSION: Diffuse ascites. Mild degree of left basilar atelectasis. Altered haustral pattern in the rectosigmoid colon suggestive of possible colitis. Electronically Signed: Bobo Ayers MD at 8:49 EDT ,
[2024-01-20 08:27] LABS: Bacteria 0 SEEN /hpf (None Seen); Mucous, Urine 0 SEEN /hpf (<or=2+); Red Blood Cells-Urine 0 SEEN /hpf (0-5)
[2024-01-20 08:28] LABS: Differential Comment SCANNED; Reactive Lymphocyte 1+
[2024-01-20 08:35] LABS: Color, Urine Yellow (Yellow); Glucose, Dipstick Normal (Normal); Ketone-Dipstick Negative (Negative); Leukocyte Esterase-Dipstick 25 /ul (Negative); Nitrite-Dipstick Positive (Negative); Occult Blood-Urine Negative /ul (Negative); Protein-Dipstick 30 mg/dl (Negative); Specific Gravity, Urine 1.005 (1.002-1.030); Urine Clarity Clear (Clear); Urine Urobilinogen 4 mg/dl (Normal); Urine pH 6.5 (5.0 - 8.0)
[2024-01-20 08:37] LABS: Urine Bilirubin Dipstick 1 mg/dL (Negative)
[2024-01-20 08:42] LABS: Squamous Epithelial Cells - UA 0-5 SEEN /hpf (0-5)
[2024-01-20 08:43] LABS: White Blood Cells 0-5 SEEN /hpf (0-5)
[2024-01-20 08:47] LABS: International Normalized Ratio 1.3; Partial Thromboplast Time 31.7 Seconds (24.1-36.2); Prothrombin Time (Protime)PT. 16.6 SECONDS (11.7-14.9)
--- NOTE | 2024-01-20 10:15 | US_ITS ---
PROCEDURE: Ultrasound guided paracentesis. DATE OF EXAMINATION: January 20, 2024.. INDICATION: Male, 28 years old. Ascites. PHYSICIAN: Bobo Ayers M.D. TECHNIQUE: The risks, benefits, and alternatives to the procedure were explained to the patient. The specific risks of bleeding, infection, and damage to bowel were detailed and accepted. Witnessed informed consent was obtained. The abdomen was ultrasonographically surveyed. An appropriate pocket of fluid was identified at the right lower quadrant. The skin were cleaned and prepped in the usual sterile fashion. Using ultrasound guidance, the peritoneal cavity was accessed with a 5-[place] paracentesis needle/catheter system. The trocar was removed. A total of 2500 ml of trice-colored fluid were removed from the peritoneal cavity. A 100 mL sample was sent to the laboratory for analysis. The catheter was removed and a sterile dressing was applied. The procedure was well tolerated. US/Paracentesis with US IMPRESSION: Ultrasound guided paracentesis. Electronically Signed: Bobo Ayers MD at 14:47 EDT ,
[2024-01-20 10:34] LABS: Magnesium 2.3 mg/dL (1.6-2.6)
[2024-01-20] MEDS: Lidocaine 2% (20 ml mdv) 20 ML Vial INFILT (13:48)
[2024-01-20] MEDS: Ondansetron 8 MG Tablet PO (14:35)
[2024-01-20] MEDS: Phenobarbital 32.4 MG Tablet 64.8 MG PO ×2 (14:35→18:38)
[2024-01-20] MEDS: hydrOXYzine PAM 25 MG Capsule 50 MG PO (14:36)
[2024-01-20] MEDS: Pantoprazole Sodium 40 MG Tablet PO (14:40)
--- NOTE | 2024-01-20 15:17 | PCM.HP.STD ---
HPI - General General Date of Admission: 01/20/24 Date of Service: 01/20/24 Chief Complaint: Abdominal distention HPI Narrative JORGE HERNANDEZ, is a 28 M who presents to the emergency room at [facility] after being instructed to come in for evaluation of a distended abdomen. This has been going on for several weeks according to the patient, he saw his physician yesterday was instructed to come to the ER yesterday for evaluation but did not show up until today. Patient is a daily drinker and has been drinking since he was 13 years old according to the patient-patient drinks anywhere from 10-12 beers per day. Lab work obtained in the emergency room was abnormal for an AST of 236, ALT of 101, alkaline phosphatase of 287, and a bilirubin of 3.8. CBC was remarkable for hemoglobin of 11 but otherwise was unremarkable. Patient underwent a CT of the abdomen pelvis which showed diffuse ascites with a mild degree of left basilar atelectasis and possible colitis area in the rectosigmoid colon. Patient has no complaints of any diarrhea or blood in his stool, he has no complaints of any lower abdominal pain. Patient will be admitted to [place] [address], he will undergo a paracentesis, he will be seen in consultation by gastroenterology. Patient states he wishes to quit drinking, his last drink was this morning and his blood alcohol level was elevated at 295. I will enroll the patient in the RAMP program while he is here. PFSH Home Medications ?Medication ?Instructions ?Recorded ?Last Taken ?Type ibuprofen 600 mg tablet 600 mg PO 4X/DAY PRN pain #40 tabs 11/23/23 Unknown Rx omeprazole 20 mg capsule,delayed 40 mg PO DAILY PRN stomach 11/23/23 Unknown History release oxycodone-acetaminophen 5 mg-325 1 tab PO Q6H PRN pain 3 days #12 11/23/23 Unknown Rx mg tablet (Percocet) tabs Allergy/AdvReac Type Severity Reaction Status Date / Time No Known Allergies Allergy Verified 01/20/24 06:56 Surgical History History of herniorrhaphy Social History Smoking Status: Current every day smoker tobacco type: cigarettes alcohol intake: current alcohol intake frequency: 3 or more drinks per day Alcohol type: beer substance use type: marijuana ROS Constitutional Constitutional: Denies anorexia, change in weight, fever(s), night sweats or weakness Eyes Eyes: Denies blurry vision, change in vision, discharge from eye(s) or eye pain Cardiovascular Cardiovascular: Denies chest pain, claudication, dyspnea on exertion, edema or palpitations Respiratory/Chest Respiratory/Chest: Denies cough, hemoptysis, shortness of breath at rest or shortness of breath with exertion Gastrointestinal Gastrointestinal: Reports other Details: Abdominal distention times several weeks ; Denies abdominal pain, constipation, diarrhea, hematemesis, hematochezia, melena, nausea or vomiting Genitourinary Genitourinary: Denies dysuria, hematuria, urinary frequency, urinary hesitancy, urinary incontinence or urinary urgency Musculoskeletal Musculoskeletal: Denies back pain, joint pain, joint stiffness, joint swelling, myalgias or neck pain Neurologic Neurologic: Denies abnormal gait, abnormal speech, dizziness, focal weakness, headache(s), loss of vision, numbness, other visual disturbances, paresthesias, syncope or tingling Psychiatric Psychiatric: Denies anxiety, cognitive impairment, depression, irritability, mood swings or suicidal ideation Endocrine Endocrinology: Denies change in body appearance, cold intolerance, excessive sweating, heat intolerance, polydipsia or polyuria Hematologic/Lymphatic Hematologic/Lymphatic: Denies none, anemia, easy bleeding, easy bruising or lymphadenopathy Allergic/Immunologic Allergic/Immunologic: Denies rhinitis, urticaria, eczemia or asthma Vital Signs Vital Signs Vital Signs: 01/20/24 06:56 01/20/24 09:33 01/20/24 09:52 Temperature 98.2 F 98.3 F 98.2 F Temperature Source Oral Oral Pulse Rate 91 75 78 Respiratory Rate 18 20 H 16 Blood Pressure 119/76 100/56 L 121/73 H Blood Pressure Mean 90 70 89 Blood Pressure Source Blood Pressure Position Blood Pressure Location Pulse Ox 95 100 96 Oxygen Delivery Method Room Air Room Air 01/20/24 11:00 01/20/24 12:15 01/20/24 12:22 Temperature 97.3 F L Temperature Source Oral Pulse Rate 85 71 71 Respiratory Rate 16 18 Blood Pressure 110/67 110/64 Blood Pressure Mean 81 79 Blood Pressure Source Monitor Blood Pressure Position Supine Blood Pressure Location Right Arm Pulse Ox 96 98 Oxygen Delivery Method Room Air Room Air 01/20/24 14:45 Temperature 98.4 F Temperature Source Oral Pulse Rate 83 Respiratory Rate 18 Blood Pressure 127/71 H Blood Pressure Mean 89 Blood Pressure Source Monitor Blood Pressure Position Semi-Fowlers Blood Pressure Location Right Arm Pulse Ox 98 Oxygen Delivery Method Room Air Weight Weight: 67.041 kg Body Mass Index (BMI) 23.1 Physical Exam Const alert, oriented x3 and no apparent distress General Appearance: cooperative, well kempt and well developed Orientation / Consciousness: awake, oriented to person, oriented to place and oriented to time HEENT normocephalic, head/scalp atraumatic, hearing grossly normal bilaterally and moist oral mucous membranes Eyes PERRL, EOMs intact bilaterally and conjunctivae normal Neck supple, no JVD and thyroid normal General: trachea midline Resp normal respiratory effort, no retractions, no use of accessory muscles and clear to auscultation bilaterally Auscultation: Negative for rales, rhonchi or wheezes Cardio regular rate, regular rhythm, S1 normal heart sound, S2 normal heart sound, no murmurs, no rub and no gallops GI soft to palpation and non-tender GI Narrative: Abdomen is diffusely distended moderately, bowel sounds are present in all 4 quadrants Extremity no clubbing, cyanosis or edema Skin no rashes or lesions noted General Skin Exam: no breakdown Neuro oriented x3, CN's II-XII intact bilaterally, no focal motor deficits and no sensory deficits noted Sensorium / Orientation: awake and alert Speech: speech normal Psych affect normal Results Lab / Micro Data 01/20/24 07:14 01/20/24 07:14 Labs: Laboratory Results - last 24 hr 01/20/24 07:14: WBC 8.7, RBC 3.20 L, Hgb 11.0 L, Hct 30.5 L, MCV 95.3 H, MCH 34.4 H, MCHC 36.1 H, RDW Std Deviation 64.8 H, RDW Coeff of Man 18.8 H, Plt Count 170, MPV 10.1, Immature Gran % (Auto) 0.500, Neut % (Auto) 61.3, Lymph % (Auto) 24.9, [place] % (Auto) 9.3, Eos % (Auto) 2.4, Baso % (Auto) 1.6 H, Absolute Neuts (auto) 5.3, Absolute Lymphs (auto) 2.17, Nucleated RBC % 0, Differential Comment SCANNED, Reactive Lymphocytes 1+, PT 16.6 H, INR 1.3, APTT 31.7, Sodium 136, Potassium 3.5, Chloride 104, Carbon Dioxide 20.0 L, Anion Gap 12, BUN 3 L, Creatinine 1.04, Estim Creat Clear Calc 99.75, Est GFR (MDRD) Af Amer 110, Est GFR (MDRD) Non-Af 91, BUN/Creatinine Ratio 2.9 L, Glucose 100, Calcium 8.3 L, Magnesium 2.3, Total Bilirubin 3.80 H, Direct Bilirubin 2.60 H, AST 236 H, ALT 101 H, Alkaline Phosphatase 287 H, Total Protein 7.8, Albumin 2.3 L, Globulin 5.5 H, Lipase 101 H 01/20/24 07:19: Ethyl Alcohol 295.0 01/20/24 08:22: Urine Color Yellow, Urine Clarity Clear, Urine pH 6.5, Ur Specific [place] 1.005, Urine Protein 30 H, Urine Glucose (UA) Normal, Urine Ketones Negative, Urine Occult Blood Negative, Urine Nitrite Positive H, Urine Bilirubin 1 H, Urine Urobilinogen 4 H, Ur Leukocyte Esterase 25 H, Urine RBC 0 SEEN, Urine WBC 0-5 SEEN, Ur Squamous Epith Cells 0-5 SEEN, Urine Bacteria 0 SEEN, Urine Mucus 0 SEEN Imaging Radiology Impression Abdomen/Pelvis CT 01/20/24 07:40 IMPRESSION: Diffuse ascites. Mild degree of left basilar atelectasis. Altered haustral pattern in the rectosigmoid colon suggestive of possible colitis. Electronically Signed: Bobo Ayers MD at 8:49 EDT , Paracentesis Ultrasound 01/20/24 10:15 IMPRESSION: Ultrasound guided paracentesis. Electronically Signed: Bobo Ayers MD at 14:47 EDT , Assessment & Plan Assessment/Plan (1) Ascites: PLAN: Plan 1. Acute alcoholic hepatitis-patient will be admitted to [facility], he will be seen by gastroenterology, again patient will be enrolled in the ramp program. Labs will be monitored. #2 ascites secondary to suspected alcoholic liver disease-patient will undergo a paracentesis today #3 substance abuse disorder with chronic alcohol intake-patient will be seen by addiction social organization professor, CIWA scores will be monitored and he will be given Ativan if needed and be placed on phenobarbital with a taper #4 GERD-patient takes as needed omeprazole, I will order daily Protonix p.o. Total clinical time spent by myself addressing the patient's medical issues, reviewing all of his data, and collaborating with patient's care team: 55 minutes Charges/Coding Visit Charges Inpatient E&M: 21870 Init Hosp L2
[2024-01-20 15:50] LABS: Cytology, Body Fluid / CSF SEE PATHOLOGY REPORT
[2024-01-20 15:59] LABS: Glucose, Body Fluid 86 mg/dL (40-70); LDH,Body Fluid 75 Units/L (Not Establ.); Protein, Body Fluid 1.5 g/dL (Not Establ.)
[2024-01-20 16:02] LABS: Body Fluid Mononuclear WBC # 0.042 10^3/uL; Body Fluid Mononuclear WBC % 89.3 %; Body Fluid Polynuclear WBC # 0.005 10^3/uL; Body Fluid Polynuclear WBC % 10.7 %; Body Fluid Total Cells Counted 0.093 10^3/ul; White Blood Count/Body Fluid 0.047 10^3/uL
[2024-01-20 16:16] LABS: ALB/GLOB Ratio 0.4 RATIO (0.9-2.4); Globulin 5.7 g/dL (2.2-4.2); LDH 383 U/L (87-241)
[2024-01-20 18:02] LABS: Lymphocytes 9 %; Macrophages 37 %; Mesothelial Cells 47 %; Monocytes 7 %
[2024-01-20 18:03] LABS: Appearance/Body Fluid CLEAR; Auto B Fluid Analyzer BKGD Ct COUNTS W/IN LIMITS (W/IN LIMITS); Body Fluid QC Type(s) BF1Q; Color/Body Fluid YELLOW; Red Cell Count/Body Fluid 57 /mm3; Source- Body Fluid PARACENTESIS
--- NOTE | 2024-01-20 18:20 | EX.PCM.CON.G ---
HPI Consult Data Date of Consult: 01/20/24 HPI Narrative Reason for Consultation: Ascites HPI Narrative: JORGE HERNANDEZ, is a 28-year-old male presenting to the emergency room with abdominal bloating. Patient states that he had bloating over the past several weeks. He went to see his doctor yesterday who advised him to come to emergency. Patient states that he has been drinking alcohol since about the age of 13. He had been drinking 10-12 beers per day over the past several months 3 weeks he has only been able to drink up to a half a can of beer. He notes weight loss and that he is losing muscle mass. He notes hemorrhoids and rectal bleeding and rectal pain. He notes variable stool sometimes yellow and liquidy sometimes formed. He notes frequent vomiting with attempting to eat or drink. He states he utilizes cannabis to help with this. He denies any fevers. No IV drug use. No fevers. But he does admit to daily marijuana. Vitals show blood pressure 84/24, pulse 77, respiratory 18, temperature 98.8, 98% saturation on room air. Labs in the ED were consistent with alcoholic hepatitis along with a bicytopenia on his complete blood count. He was here last month for some nausea vomiting and hematemesis. He was diagnosed with alcoholic gastritis. His hemoglobin remained normal at that time. He had a CT scan of the abdomen pelvis and it displayed: Diffuse ascites. Mild degree of left basilar atelectasis. Altered haustral pattern in the rectosigmoid colon suggestive of possible colitis. Model for End Stage Liver Disease?Sodium score at that time was 24. He was admitted for further assessment.He underwent large-volume paracentesis and had 2.4 L removed from his abdomen. [facility] Home Medications ?Medication ?Instructions ?Recorded ?Last Taken ?Type ibuprofen 600 mg tablet 600 mg PO 4X/DAY PRN pain #40 tabs 11/23/23 Unknown Rx omeprazole 20 mg capsule,delayed 40 mg PO DAILY PRN stomach 11/23/23 Unknown History release oxycodone-acetaminophen 5 mg-325 1 tab PO Q6H PRN pain 3 days #12 11/23/23 Unknown Rx mg tablet (Percocet) tabs Allergy/AdvReac Type Severity Reaction Status Date / Time No Known Allergies Allergy Verified 01/20/24 06:56 Surgical History History of herniorrhaphy Social History Smoking Status: Current every day smoker tobacco type: cigarettes alcohol intake: current alcohol intake frequency: 3 or more drinks per day Alcohol type: beer substance use type: marijuana ROS Constitutional Constitutional: Denies anorexia, change in weight, fever(s), night sweats or weakness Eyes Eyes: Denies blurry vision, change in vision, discharge from eye(s) or eye pain Cardiovascular Cardiovascular: Denies chest pain, claudication, dyspnea on exertion, edema or palpitations Respiratory/Chest Respiratory/Chest: Denies cough, hemoptysis, shortness of breath at rest or shortness of breath with exertion Gastrointestinal Gastrointestinal: Reports other Details: Abdominal distention times several weeks ; Denies abdominal pain, constipation, diarrhea, hematemesis, hematochezia, melena, nausea or vomiting Genitourinary Genitourinary: Denies dysuria, hematuria, urinary frequency, urinary hesitancy, urinary incontinence or urinary urgency Musculoskeletal Musculoskeletal: Denies back pain, joint pain, joint stiffness, joint swelling, myalgias or neck pain Neurologic Neurologic: Denies abnormal gait, abnormal speech, dizziness, focal weakness, headache(s), loss of vision, numbness, other visual disturbances, paresthesias, syncope or tingling Psychiatric Psychiatric: Denies anxiety, cognitive impairment, depression, irritability, mood swings or suicidal ideation Endocrine Endocrinology: Denies change in body appearance, cold intolerance, excessive sweating, heat intolerance, polydipsia or polyuria Hematologic/Lymphatic Hematologic/Lymphatic: Denies none, anemia, easy bleeding, easy bruising or lymphadenopathy Allergic/Immunologic Allergic/Immunologic: Denies rhinitis, urticaria, eczemia or asthma Physical Exam Const alert, oriented x3, no apparent distress, healthy appearing and well nourished General Appearance: cooperative, comfortable, well kempt and well developed Orientation / Consciousness: awake and oriented to person HEENT Head and Scalp: normocephalic and atraumatic Face and Sinus: normal facial exam Mouth: oral and palatal mucosa normal Eyes General Eye: normal appearance of both eyes Neck full ROM Lymph Lymphatic: no lymphadenopathy noted Chest inspection of chest normal Resp normal respiratory effort and no use of accessory muscles Cardio regular rate and regular rhythm GI normal to inspection, nondistended, normoactive bowel sounds, soft to palpation, non-tender, non-distended and no masses Auscultation: normoactive bowel sounds Palpation: soft Percussion: normal to percussion Rectal Exam: visual inspection normal and normal sphincter tone no CVA tenderness Back/Spine no CVA tenderness and normal ROM Extremity normal to inspection Peripheral Pulses: Yes pulses 2+ throughout Skin no rashes or lesions noted General Skin Exam: no breakdown, elasticity normal and turgor normal Neuro oriented x3 Motor Exam: strength 5/5 throughout Psych mental status grossly normal Appearance: grossly normal Attitude: calm Activity / Motor Behavior: appropriate eye contact Speech: normal speech Thought Process: normal thought process Thought Content: normal thought content Attention / Concentration: attention grossly intact Memory / Cognition: memory grossly intact Insight: insight good Judgement: judgement good Lab / Micro Data 01/20/24 07:14 01/20/24 07:14 Labs: Laboratory Results - last 24 hr 01/20/24 07:14: WBC 8.7, RBC 3.20 L, Hgb 11.0 L, Hct 30.5 L, MCV 95.3 H, MCH 34.4 H, MCHC 36.1 H, RDW Std Deviation 64.8 H, RDW Coeff of Man 18.8 H, Plt Count 170, MPV 10.1, Immature Gran % (Auto) 0.500, Neut % (Auto) 61.3, Lymph % (Auto) 24.9, [place] % (Auto) 9.3, Eos % (Auto) 2.4, Baso % (Auto) 1.6 H, Absolute Neuts (auto) 5.3, Absolute Lymphs (auto) 2.17, Nucleated RBC % 0, Differential Comment SCANNED, Reactive Lymphocytes 1+, PT 16.6 H, INR 1.3, APTT 31.7, Sodium 136, Potassium 3.5, Chloride 104, Carbon Dioxide 20.0 L, Anion Gap 12, BUN 3 L, Creatinine 1.04, Estim Creat Clear Calc 99.75, Est GFR (MDRD) Af Amer 110, Est GFR (MDRD) Non-Af 91, BUN/Creatinine Ratio 2.9 L, Glucose 100, Calcium 8.3 L, Magnesium 2.3, Total Bilirubin 3.80 H, Direct Bilirubin 2.60 H, AST 236 H, ALT 101 H, Alkaline Phosphatase 287 H, Lactate Dehydrogenase 383 H, Total Protein 7.8 01/20/24 07:14: Total Protein 8.0, Albumin 2.3 L, Globulin 5.5 H 01/20/24 07:14: Globulin 5.7 H, Albumin/Globulin Ratio 0.4 L, Lipase 101 H 01/20/24 07:19: Ethyl Alcohol 295.0 01/20/24 08:22: Urine Color Yellow, Urine Clarity Clear, Urine pH 6.5, Ur Specific [place] 1.005, Urine Protein 30 H, Urine Glucose (UA) Normal, Urine Ketones Negative, Urine Occult Blood Negative, Urine Nitrite Positive H, Urine Bilirubin 1 H, Urine Urobilinogen 4 H, Ur Leukocyte Esterase 25 H, Urine RBC 0 SEEN, Urine WBC 0-5 SEEN, Ur Squamous Epith Cells 0-5 SEEN, Urine Bacteria 0 SEEN, Urine Mucus 0 SEEN 01/20/24 : Fluid Source PARACENTESIS, Fluid Color YELLOW, Fluid Appearance CLEAR, Fluid WBC 0.047, Fluid RBC 57, Fluid Tot Cell Count 0.093, Fld Polynuclear WBCs # 0.005, Fld Polynuclear WBCs % 10.7, Fluid Mononuclear WBCs 0.042, Fld Mononuclear WBCs % 89.3, Fluid Lymphocytes 9, Fluid Monocytes 7, Fluid Macrophages 37, Fld Mesothelial Cells 47, Fl Pathologist Comment May follow, Fluid Glucose 86 H, Fluid Total Protein 1.5, Fluid LDH 75, Fluid Comment 2 SEE COMMENT Imaging Radiology Impression Abdomen/Pelvis CT 01/20/24 07:40 IMPRESSION: Diffuse ascites. Mild degree of left basilar atelectasis. Altered haustral pattern in the rectosigmoid colon suggestive of possible colitis. Electronically Signed: Bobo Ayers MD at 8:49 EDT , Paracentesis Ultrasound 01/20/24 10:15 IMPRESSION: Ultrasound guided paracentesis. Electronically Signed: Bobo Ayers MD at 14:47 EDT , Assessment & Plan Assessment/Plan (1) Ascites: (2) Acute alcoholic hepatitis: (3) Cirrhosis: PLAN: 28-year-old presented with 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 He had less than 5 L so he did not get prophylaxis with albumin. He was here for vomiting in the beginning of the month and was diagnosed with alcoholic gastritis. There is a strong possibility that he has varices in the upper GI tract. And had an upper GI bleed on presentation to the emergency department earlier in the month without superimposed ischemic hepatopathy. He should have an ammonia checked along with an alpha-fetoprotein, acute hepatitis profile, HIV, QuantiFERON gold, IBD SGI, celiac disease, labs for chronic viral hepatitis. I will start him on midodrine 5 mg p.o. 3 times daily, nadolol 10 mg twice daily, Lasix 20 mg twice daily, Aldactone 25 mg twice daily. Charges/Coding Visit Charges Inpatient E&M: 27918 Init Hosp L3
[2024-01-21] VITALS (8 sets, daily range): BP systolic 93–107; BP diastolic 48–70; PULSE 63–80; RESP 12–18; TEMP 36.8–37.2; O2SAT 98–100
[2024-01-21] MEDS: hydrOXYzine PAM 25 MG Capsule 50 MG PO ×2 (02:11→08:07)
[2024-01-21] MEDS: Folic Acid 1 MG Tablet PO (06:03)
[2024-01-21] MEDS: Thiamine Hydrochloride 100 MG Tablet PO (06:03)
[2024-01-21] MEDS: Phenobarbital 32.4 MG Tablet 64.8 MG PO ×5 (06:04→22:31)
[2024-01-21 07:10] LABS: Absolute Lymphocyte Count 1.21 X10^3/uL (0.83-4.51); Absolute Neutrophil Count 3.3 X10^3/uL (2.0-7.7); Basophil# 0.05 X10^3/uL; Eosinophil# 0.08 X10^3/uL; Eosinophils% 1.5 % (0-5); Hematocrit 26.4 % (40-54); Hemoglobin 9.6 g/dL (13.0-16.5); Lymphocyte # 1.21 X10^3/ul (0.83-4.51); Lymphocyte % 23.4 % (19-41); Mean Corp Hgb Conc 36.4 g/dL (32-36); Mean Corpuscular Hgb 34.3 pg (27.0-32.0); Mean Corpuscular Volume 94.3 fL (80-94); Mean Platelet Vol. 10.7 fl (6.2-12.0); Monocyte# 0.46 X10^3/uL; Monocyte% 8.9 % (0-10); NRBC Flagged by Analyzer 0 % (0-5); Neutrophil # 3.34 X10^3/uL (2.7-7.7); Neutrophil % 64.4 % (47-70); Platelet Count 119 K/mm3 (150-450); RBC Distribution Width CV 18.6 % (11.6-14.6); RBC Distribution Width SD 63.8 fl (35.1-43.9); White Blood Count 5.2 K/mm3 (4.4-11.0)
[2024-01-21 07:56] LABS: ALB/GLOB Ratio 0.4 RATIO (0.9-2.4); AST(SGOT) 189 U/L (15-37); Alanine Aminotransfer ALT/SGPT 79 U/L (16-61); Alkaline Phosphatase 241 U/L (45-117); Anion Gap 10 (5-15); BUN 4 mg/dL (7-18); BUN/Creat Ratio 4.6 RATIO (10-20); Calcium,Total 8.2 mg/dL (8.5-10.1); Chloride 102 mmol/L (98-107); Creatinine, Serum 0.87 mg/dL (0.70-1.30); EST Glomerular Filtration Rate 112 mL/min (>60); Est Glom Filt Rate - Afr Amer 136 mL/min (>60); Estimated Creatinine Clearance 119.24 ml/min; Globulin 4.7 g/dL (2.2-4.2); Glucose 70 mg/dL (74-106); Potassium 4.2 mmol/L (3.5-5.1); Protein, Total 6.7 g/dL (6.4-8.2); Sodium Level 133 mmol/L (136-145)
[2024-01-21] MEDS: Pantoprazole Sodium 40 MG Tablet PO ×2 (08:07→22:30)
[2024-01-21] MEDS: Midodrine HCl 5 MG Tablet PO ×3 (08:07→17:54)
--- NOTE | 2024-01-21 10:19 | CASEMGMT ---
VICTOR M LOMAX Assessment: Face to Face with pt for initial transition planning/care coordination assessment. VICTOR M LOMAX introduced self and role at [facility], pt voices understanding and consents to assessment. Pt is A&O x4 and answers all questions appropriately at this time. Pt is sitting up in bed in no distress. Care providers, pharmacy, and demographics verified/updated. Strata: 2 Admitting Dx: Alcoholic hepatitis, ascites PCP: Danita Specialists: Denies Preferred Pharmacy: [facility] Insurance: [facility]/[employer] CARD Prescription Benefit: yes LNOK: Nora, Friend Living Arrangements: Pt lives with roommate in an apartment. Pt has several steps to go down to enter into apartment. ADLs: Pt states I with ADLs. Transportation: Pt does not drive, denies concerns with transportation. Pt reports walks to his appointments, uses [employer] for groceries. DME: Denies HHC/SNF: Denies Hx of. Pt states no concerns with going home at time of dc. Pt reports uses alcohol, smokes cigarettes and marijuana. Pt states he uses these as coping mechanism. VICTOR M LOMAX discussed cessation program information with pt, pt agreeable to speaking with [employer] representative government relations about options available. VICTOR M LOMAX informed RAMP coordinator. Pt states no further concerns/needs. CM to follow. Advised pt to ask CM if any further question/concerns/needs arise, voices understanding. Pt Goal: Home Plan: Home, RAMP coordinator to follow up with cessation programs available. Rodriguez DOW CM
[2024-01-21 11:10] LABS: AFP, Tumor Marker 4.3 ng/mL (0.0-5.7)
--- NOTE | 2024-01-21 12:02 | PN.HOSP_ITS ---
Reason for Visit Reason for Visit: Diagnoses Alcoholic hepatitis without ascites (01/20/24) Unspecified cirrhosis of liver (01/20/24) Other ascites (01/20/24) Subjective Subjective Patient was seen and examined today, I talked briefly with gastroenterology about his care. Patient had questions as to how long he needs to stay in the hospital, I told him he was detoxing from alcohol and he would need to stay for another 2 to 3 days. Patient's blood pressure has been slightly low today and some of his meds were held due to the effects of the meds on his blood pressure. Objective Data Objective Data Vital Signs: Vital Signs Temp Pulse Resp BP Pulse Ox O2 Del Method 98.3 F 64 18 99/53 L 100 Room Air 01/21/24 10:50 01/21/24 10:50 01/21/24 10:50 01/21/24 10:50 01/21/24 10:50 01/21/24 10:50 Oxygen Delivery Method Room Air Weight: 67.041 kg Body Mass Index (BMI) 23.1 Intake & Output: Intake and Output for Last 24 Hours 01/19/24 01/20/24 01/21/24 23:59 23:59 23:59 Intake Total 700 / 700 Output Total 2500 / 2500 Balance -1800 / -1800 Lab / Micro Data 01/21/24 06:45 01/21/24 06:45 Labs: Laboratory Results - last 24 hr 01/20/24 07:14: Lactate Dehydrogenase 383 H, Total Protein 8.0, Globulin 5.7 H, Albumin/Globulin Ratio 0.4 L, Tumor Marker AFP 4.3 01/20/24 : Fluid Source PARACENTESIS, Fluid Color YELLOW, Fluid Appearance CLEAR, Fluid WBC 0.047, Fluid RBC 57, Fluid Tot Cell Count 0.093, Fld Polynuclear WBCs # 0.005, Fld Polynuclear WBCs % 10.7, Fluid Mononuclear WBCs 0.042, Fld Mononuclear WBCs % 89.3, Fluid Lymphocytes 9, Fluid Monocytes 7, Fluid Macrophages 37, Fld Mesothelial Cells 47, Fl Pathologist Comment May follow, Fluid Glucose 86 H, Fluid Total Protein 1.5, Fluid LDH 75, Fluid Comment 2 SEE COMMENT 01/21/24 06:45: WBC 5.2, RBC 2.80 L, Hgb 9.6 L, Hct 26.4 L, MCV 94.3 H, MCH 34.3 H, MCHC 36.4 H, RDW Std Deviation 63.8 H, RDW Coeff of Man 18.6 H, Plt Count 119 L, MPV 10.7, Immature Gran % (Auto) 0.800, Neut % (Auto) 64.4, Lymph % (Auto) 23.4, [place] % (Auto) 8.9, Eos % (Auto) 1.5, Baso % (Auto) 1.0, Absolute Neuts (auto) 3.3, Absolute Lymphs (auto) 1.21, Nucleated RBC % 0, Sodium 133 L, Potassium 4.2, Chloride 102, Carbon Dioxide 21.0, Anion Gap 10, BUN 4 L, Creatinine 0.87, Estim Creat Clear Calc 119.24, Est GFR (MDRD) Af Amer 136, Est GFR (MDRD) Non-Af 112, BUN/Creatinine Ratio 4.6 L, Glucose 70 L, Calcium 8.2 L, Total Bilirubin 3.40 H, AST 189 H, ALT 79 H, Alkaline Phosphatase 241 H, Total Protein 6.7, Albumin 2.0 L, Globulin 4.7 H, Albumin/Globulin Ratio 0.4 L Radiography Diagnostic Testing: Radiology Impression Paracentesis Ultrasound 01/20/24 10:15 IMPRESSION: Ultrasound guided paracentesis. Electronically Signed: Bobo Ayers MD at 14:47 EDT , Physical Exam Const alert, oriented x3, no apparent distress and average body habitus General Appearance: cooperative, well kempt and well developed Orientation / Consciousness: awake, oriented to person, oriented to place and oriented to time HEENT normocephalic, head/scalp atraumatic and moist oral mucous membranes Eyes PERRL, EOMs intact bilaterally and conjunctivae normal Neck supple, no JVD, thyroid normal and no carotid bruits General: trachea midline Resp normal respiratory effort, no retractions, no use of accessory muscles and clear to auscultation bilaterally Auscultation: Negative for rales, rhonchi or wheezes Cardio regular rate, regular rhythm, S1 normal heart sound, S2 normal heart sound, no murmurs, no rub and no gallops GI normal to inspection, nondistended, normoactive bowel sounds, soft to palpation, non-tender and non-distended Extremity no clubbing, cyanosis or edema Skin no rashes or lesions noted General Skin Exam: no breakdown Neuro oriented x3, CN's II-XII intact bilaterally, moves all extremities, no focal motor deficits and no sensory deficits noted Sensorium / Orientation: awake and alert Speech: speech normal Psych affect normal Assessment & Plan Assessment/Plan (1) Acute alcoholic hepatitis: (2) Ascites: PLAN: Plan 1. Acute alcoholic hepatitis-patient's liver enzymes have improved, I will check them again tomorrow #2 ascites secondary to suspected alcoholic liver disease-patient underwent paracentesis yesterday with removal of 2500 cc of fluid, patient is now on a beta-mello and spironolactone #3 substance abuse disorder with chronic alcohol intake-patient will be seen by addiction social media executive, CIWA scores will be monitored and he will be given Ativan if needed and be placed on phenobarbital with a taper #4 GERD-patient is on a daily PPI Total clinical time spent by myself addressing the patient's medical issues, reviewing all of his data, and collaborating with patient's care team: 35 minutes Charges/Coding Visit Charges Inpatient E&M: 86680 Subs Hosp L2
--- NOTE | 2024-01-21 13:01 | ADDICTION ---
Met with pt to complete RAMP assessments. Patient is a daily drinker and has been drinking since he was 13 years old according to the patient-patient drinks anywhere from 10-12 beers per day. He reports that he is uncertain about treatment however, he is open to resource options. Clinician gave him flyers for different tx facilities.
[2024-01-21 14:50] LABS: Pathologist Comment/Body Fluid Reviewed
--- NOTE | 2024-01-21 17:00 | EX.PCM.PN.GI ---
Subjective Subjective Patient said that he feels okay with staying another day. He is shaking but not examining any other signs of delirium tremens at this time. He is tolerating a diet. His weight is about the same. He is negative about 500 mL. He does not feel dizzy or weak. Objective Data Objective Data Vital Signs: Vital Signs Temp Pulse Resp BP Pulse Ox O2 Del Method 98.7 F 73 18 107/70 100 Room Air 01/21/24 14:25 01/21/24 14:25 01/21/24 14:25 01/21/24 14:25 01/21/24 14:25 01/21/24 14:25 Oxygen Delivery Method Room Air Weight: 147 lb 12.802 oz Body Mass Index (BMI) 23.1 Intake & Output: Intake and Output for Last 24 Hours 01/19/24 01/20/24 01/21/24 23:59 23:59 23:59 Intake Total 700 / 700 Output Total 2500 / 2500 Balance -1800 / -1800 Lab / Micro Data 01/21/24 06:45 01/21/24 06:45 Labs: Laboratory Results - last 24 hr 01/20/24 07:14: Tumor Marker AFP 4.3 01/20/24 : Fluid Source PARACENTESIS, Fluid Color YELLOW, Fluid Appearance CLEAR, Fluid RBC 57, Fluid Lymphocytes 9, Fluid Monocytes 7, Fluid Macrophages 37, Fld Mesothelial Cells 47, Fl Pathologist Comment Reviewed, Fluid Comment 2 SEE COMMENT 01/21/24 06:45: WBC 5.2, RBC 2.80 L, Hgb 9.6 L, Hct 26.4 L, MCV 94.3 H, MCH 34.3 H, MCHC 36.4 H, RDW Std Deviation 63.8 H, RDW Coeff of Man 18.6 H, Plt Count 119 L, MPV 10.7, Immature Gran % (Auto) 0.800, Neut % (Auto) 64.4, Lymph % (Auto) 23.4, [place] % (Auto) 8.9, Eos % (Auto) 1.5, Baso % (Auto) 1.0, Absolute Neuts (auto) 3.3, Absolute Lymphs (auto) 1.21, Nucleated RBC % 0, Sodium 133 L, Potassium 4.2, Chloride 102, Carbon Dioxide 21.0, Anion Gap 10, BUN 4 L, Creatinine 0.87, Estim Creat Clear Calc 119.24, Est GFR (MDRD) Af Amer 136, Est GFR (MDRD) Non-Af 112, BUN/Creatinine Ratio 4.6 L, Glucose 70 L, Calcium 8.2 L, Total Bilirubin 3.40 H, AST 189 H, ALT 79 H, Alkaline Phosphatase 241 H, Total Protein 6.7, Albumin 2.0 L, Globulin 4.7 H, Albumin/Globulin Ratio 0.4 L Physical Exam Const alert, oriented x3, no apparent distress, healthy appearing and well nourished General Appearance: cooperative, comfortable, well kempt and well developed Orientation / Consciousness: awake and oriented to person HEENT Head and Scalp: normocephalic and atraumatic Face and Sinus: normal facial exam Mouth: oral and palatal mucosa normal Eyes General Eye: normal appearance of both eyes Neck full ROM Lymph Lymphatic: no lymphadenopathy noted Chest inspection of chest normal Resp normal respiratory effort and no use of accessory muscles Cardio regular rate and regular rhythm GI normal to inspection, nondistended, normoactive bowel sounds, soft to palpation, non-tender, non-distended and no masses Auscultation: normoactive bowel sounds Palpation: soft Percussion: normal to percussion Rectal Exam: visual inspection normal and normal sphincter tone no CVA tenderness Back/Spine no CVA tenderness and normal ROM Extremity normal to inspection Peripheral Pulses: Yes pulses 2+ throughout Skin no rashes or lesions noted General Skin Exam: no breakdown, elasticity normal and turgor normal Neuro oriented x3 Motor Exam: strength 5/5 throughout Psych mental status grossly normal Appearance: grossly normal Attitude: calm Activity / Motor Behavior: appropriate eye contact Speech: normal speech Thought Process: normal thought process Thought Content: normal thought content Attention / Concentration: attention grossly intact Memory / Cognition: memory grossly intact Insight: insight good Judgement: judgement good Assessment & Plan Assessment/Plan (1) Ascites: (2) Acute alcoholic hepatitis: (3) Cirrhosis: PLAN: 28-year-old presented with 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 He had less than 5 L so he did not get prophylaxis with albumin. He was here for vomiting in the beginning of the month and was diagnosed with alcoholic gastritis. There is a strong possibility that he has varices in the upper GI tract. And had an upper GI bleed on presentation to the emergency department earlier in the month without superimposed ischemic hepatopathy. He should have an ammonia checked along with an alpha-fetoprotein, acute hepatitis profile, HIV, QuantiFERON gold, IBD SGI, celiac disease, labs for chronic viral hepatitis. I will start him on midodrine 5 mg p.o. 3 times daily, nadolol 10 mg twice daily, Lasix 20 mg twice daily, Aldactone 25 mg twice daily. 01/21/2024. Patient is urinating without any problems. His urine continues to be very dark. I explained to him that he has alcoholic hepatitis, cirrhosis complicated by ascites without signs or symptoms of GI bleeding at this time. However he his hemoglobin did drop slightly. I do suspect that he likely has portal gastropathy possibly esophageal and gastric and/or duodenal varices. He is doing okay on midodrine without any significant tachycardia. His blood pressure is a little better today. Some of his medicines have been held secondary to hypotension. Awaiting other blood work. He will need vaccinations for hepatitis A and hepatitis B. Continue to watch for signs and symptoms of delirium tremens. I will start Xifaxan 5 to 50 mg p.o. twice daily. Charges/Coding Visit Charges Inpatient E&M: 29503 Subs Hosp L3
[2024-01-22 02:00] VITALS: BP 95/60; PULSE 64; RESP 15; TEMP 36.8; O2SAT 100
[2024-01-22 02:18] VITALS: BP 95/60; PULSE 64; RESP 15; TEMP 36.8; O2SAT 100
[2024-01-22] MEDS: Phenobarbital 32.4 MG Tablet 64.8 MG PO ×4 (02:40→14:26)
[2024-01-22] MEDS: Ensure Plus High Protein 120 ML LIQUID PO ×3 (07:48→16:21)
[2024-01-22] MEDS: Thiamine Hydrochloride 100 MG Tablet PO (07:49)
[2024-01-22] MEDS: Folic Acid 1 MG Tablet PO (07:49)
[2024-01-22] MEDS: Midodrine HCl 5 MG Tablet PO ×3 (07:49→16:21)
[2024-01-22 07:52] VITALS: BP 92/55; PULSE 64; RESP 16; TEMP 37; O2SAT 100
[2024-01-22] MEDS: Pantoprazole Sodium 40 MG Tablet PO (10:28)
--- NOTE | 2024-01-22 11:05 | CASEMGMT ---
Social Work- SW met with pt as bedside nurse reported pt was requesting to discuss treatment options and is becoming increasingly restless, wanting to d/c. SW met with pt to provide support and education. SW coordinated with clinical detox coordinator for her to meet with pt. MEET remains available to follow. SUZI Figueroa
[2024-01-22 12:08] VITALS: BP 101/67; PULSE 71; TEMP 36.9; O2SAT 100
--- NOTE | 2024-01-22 15:46 | DCINST_ITS ---
Discharge Instructions Diet Discharge Diet: No restrictions Activity Discharge Activity: Return to Normal Activity Weight Bearing Status: Full weight bearing Follow Up Care Test Results: Test results from this visit will be discussed in further detail at your follow- up appointment, if applicable. Discharge Plan Admission Admit Date/Time: 01/20/24 09:50 Primary Reason for Your Visit: Ascites, substance abuse disorder-alcohol Attending Provider: Guido Petit Primary Care Provider: Lizzie Samayoa Discharge Orders/Prescriptions Prescriptions: New carvedilol 6.25 mg Tablet 6.25 mg PO BID Qty: 60 0RF midodrine 5 mg Tablet 5 mg PO TIDCM Qty: 90 0RF pantoprazole 40 mg Tablet,Delayed Release (Dr/Ec) 40 mg PO BID Qty: 60 0RF spironolactone 50 mg Tablet 50 mg PO DAILY Qty: 30 0RF hydroxyzine pamoate 25 mg Capsule 50 mg PO Q4H PRN PRN (Reason: mild anxiety) Qty: 30 0RF Discontinued omeprazole 20 mg capsule,delayed release(DR/EC) 40 mg PO DAILY PRN (Reason: stomach) ibuprofen 600 mg tablet 600 mg PO 4X/DAY PRN (Reason: pain) Qty: 40 0RF No Action oxycodone-acetaminophen [Percocet] 5-325 mg tablet 1 tab PO Q6H PRN (Reason: pain) 3 Days Qty: 12 0RF Referrals / Follow Up: Lizzie Samayoa DO [Primary Care Provider] - Within 2 Weeks Disposition Disposition (needs filled in before D/C Order can be placed): Home, Self Care
--- NOTE | 2024-01-22 15:50 | DS.PCM_ITS ---
Providers Date of Admission: 01/20/24 Date of Discharge: 01/22/24 Primary Care Physician: Lizzie Samayoa DO Consultations 01/20/24 12:33 Consult: Gastroenterology Routine Consulting Provider: Agnieszka Gastroenterology Reason for Consult: liver disease EMERGENT Consult: No MD Notified: Yes Date Notified: 01/20/24 Time Notified: 10:03 Method of Notification: Verbal Reason For Visit: ALCOHOLIC HEPATITIS, ASCITES Diagnosis Discharge Diagnosis (1) Ascites: Status: Acute Code(s): R18.8 - Other ascites (2) Acute alcoholic hepatitis: Status: Acute Code(s): K70.10 - Alcoholic hepatitis without ascites (3) Cirrhosis: Status: Acute Code(s): K74.60 - Unspecified cirrhosis of liver Plan 1. Acute alcoholic hepatitis-patient's liver enzymes have improved, I will check them again tomorrow #2 ascites secondary to suspected alcoholic liver disease-patient underwent paracentesis yesterday with removal of 2500 cc of fluid, patient is now on a beta-mello and spironolactone #3 substance abuse disorder with chronic alcohol intake-patient will be seen by addiction social worker assistant, CIWA scores will be monitored and he will be given Ativan if needed and be placed on phenobarbital with a taper #4 GERD-patient is on a daily PPI #5 alcohol intoxication present on admission Total clinical time spent by myself addressing the patient's medical issues, reviewing all of his data, and collaborating with patient's care team: 35 minutes Medications at Discharge Home Medications oxycodone-acetaminophen 5 mg-325 mg tablet (Percocet) 1 tab PO Q6H PRN pain 3 days #12 tabs 11/23/23 carvedilol 6.25 mg tablet 6.25 mg PO BID #60 tabs 01/22/24 hydroxyzine pamoate 25 mg capsule 50 mg (2 x 25 mg) PO Q4H PRN PRN mild anxiety #30 caps 01/22/24 midodrine 5 mg tablet 5 mg PO TIDCM #90 tabs 01/22/24 pantoprazole 40 mg tablet,delayed release 40 mg PO BID #60 tabs 01/22/24 spironolactone 50 mg tablet 50 mg PO DAILY #30 tabs 01/22/24 Hospital Course Operations None Procedures Paracentesis Summary of Care Provided Minutes Spent on Discharge: 31 Hospital Course: This 28-year-old black male was seen in the emergency room at [facility] after he had seen his PCP the day before and had been recommended to go to the ER for evaluation of abdominal distention. Patient did not go to the ER that day and subsequently showed up to the ER the following day for evaluation of his abdominal distention. Patient had a long history of alcohol usage starting at the age of 13. Workup in the emergency room noted the patient to be intoxicated, abdomen was moderately distended, CT of the abdomen and pelvis revealed diffuse ascites, there is also noted to be possible colitis but the patient had no symptoms of colitis. Patient's blood alcohol level was 295. Discussions were carried out with the patient and he agreed to admission to the hospital and he agreed to enroll in the ramp program. He was admitted to [place] [address] and underwent a paracentesis with removal of 2500 cc of fluid. Patient was seen by addiction social worker assistant, he declined to agree to go to an inpatient alcohol detox program. Patient understood that continued drinking would be very detrimental to his health and that he probably had cirrhosis currently. Patient was seen in consultation by gastroenterology and he was placed on Aldactone and a beta-mello. Patient had no serious signs of alcohol withdrawal during his hospitalization. Patient was felt to be stable for discharge on 01/22/2024, on that day he was seen and examined: On examination he appeared in good health and spirits. Vital signs as documented. Skin warm and dry and without overt rashes. Neck without JVD, neck was supple, trachea midline, thyroid was normal. Lungs clear bilaterally, normal air movement was noted. Heart exam notable for regular rhythm, normal sounds and absence of murmurs, rubs or gallops. Abdomen unremarkable and without evidence of organomegaly, masses, or abdominal aortic enlargement. Bowel sounds are present, abdomen is not distended. Extremities nonedematous, no cyanosis was noted, no clubbing was noted. Neuro: Cranial nerves II through XII are grossly intact, no focal motor deficits were noted, sensation to light touch and pinprick intact, motor exam 5/5 throughout. Psych: Patient is alert and oriented x3, he does not appear anxious or depressed, he does not appear agitated. Patient was discharged home in stable condition on 01/22/2024, he was given resources by addiction social worker assistant for follow-up regarding further detox treatment. Weight / BMI Weight Weight: 67.041 kg Body Mass Index (BMI) 23.1 ABG / Lab / Microbiology Data 01/21/24 06:45 01/21/24 06:45 D/C Instructions Discharge Diet: No restrictions Weight Bearing Status: Full weight bearing Meaningful Use Info Meaningful Use Meaningful Use Diagnoses (Choose all that apply): None applicable Ischemic Stroke Statin Dosing Therapy Reference: STATIN DOSE THERAPY REFERENCE: * Patients > 75 years receive moderate or high dose statin therapy. * Patients 75 years or YOUNGER should receive HIGH intensity statin dose unless contraindicated. You will be required to document reason for non-treatment if statin daily dose does not meet guidelines. HIGH DOSE STATIN THERAPY DAILY Atorvastatin > than or = to 40 mg Rosuvastatin > than or = to 20 mg Amlodipine + Atorvastatin > than or = to 2.5/40 mg Ezetimibe + Simvastatin 10/80 mg Simvastatin 80mg Discharge Plan Admission Admit Date/Time: 01/20/24 09:50 Primary Reason for Your Visit: Ascites, substance abuse disorder-alcohol Attending Provider: Guido Petit Primary Care Provider: Lizzie Samayoa Discharge Orders/Prescriptions Prescriptions: New carvedilol 6.25 mg Tablet 6.25 mg PO BID Qty: 60 0RF midodrine 5 mg Tablet 5 mg PO TIDCM Qty: 90 0RF pantoprazole 40 mg Tablet,Delayed Release (Dr/Ec) 40 mg PO BID Qty: 60 0RF spironolactone 50 mg Tablet 50 mg PO DAILY Qty: 30 0RF hydroxyzine pamoate 25 mg Capsule 50 mg PO Q4H PRN PRN (Reason: mild anxiety) Qty: 30 0RF Discontinued omeprazole 20 mg capsule,delayed release(DR/EC) 40 mg PO DAILY PRN (Reason: stomach) ibuprofen 600 mg tablet 600 mg PO 4X/DAY PRN (Reason: pain) Qty: 40 0RF No Action oxycodone-acetaminophen [Percocet] 5-325 mg tablet 1 tab PO Q6H PRN (Reason: pain) 3 Days Qty: 12 0RF Referrals / Follow Up: Lizzie Samayoa DO [Primary Care Provider] - Within 2 Weeks Disposition Disposition (needs filled in before D/C Order can be placed): Home, Self Care Charges/Coding Visit Charges Inpatient E&M: 55236 Disch Hosp >30min
[2024-01-22 16:11] VITALS: BP 115/74; PULSE 81; RESP 18; TEMP 36.9; O2SAT 100
== END 2024-01-22 17:03 | disposition home or self-care (01) | DRG 280 ==
LOC: ED 08:14 → MS3 01-21 07:53
PROVIDERS: Admitting Provider Internal Medicine; Emergency Provider Emergency Medicine; PCP Family Medicine; Visit Provider Internal Medicine
DX: K70.11 Alcoholic hepatitis with ascites (principal); K74.60 Unspecified cirrhosis of liver; F10.929 Alcohol use, unspecified with intoxication, unspecified; K29.20 Alcoholic gastritis without bleeding; K21.9 Gastro-esophageal reflux disease without esophagitis; K64.9 Unspecified hemorrhoids; F17.210 Nicotine dependence, cigarettes, uncomplicated; Y90.8 Blood alcohol level of 240 mg/100 ml or more
CPT/HCPCS: 36415; 49083; 74177; 80048; 80053; 80076; 81001; 82077; 82105; 82945; 83615; 83690; 83735; 84155; 84157; 85025; 85610; 85730; 88108; 88305; 88313; 89050; 97802; 99221; 99284; 99406; Q9967; A4216; G0378

== ENCOUNTER 2024-02-01 22:21 | Emergency (ER) | payer MEDICAID, SELFPAY ==
[2024-02-01 22:21] VITALS: BP 133/83; PULSE 81; RESP 16; TEMP 36.8; O2SAT 100; BMI 22.4
[2024-02-01] MEDS: Lidocaine 1% (20 ml mdv) 20 ML Vial INFILT (23:33)
== END 2024-02-02 00:20 | disposition home or self-care (01) ==
PROVIDERS: Emergency Provider Emergency Medicine; PCP Family Medicine; Visit Provider Emergency Medicine
DX: L02.01 Cutaneous abscess of face (principal); K74.60 Unspecified cirrhosis of liver; R04.0 Epistaxis; Z98.890 Other specified postprocedural states; F17.210 Nicotine dependence, cigarettes, uncomplicated; R51.9 Headache, unspecified; R18.8 Other ascites
CPT/HCPCS: 10061; 10060; 99282

== ENCOUNTER → 2024-03-09 | Outpatient (CLI) | payer MEDICAID, SELFPAY ==
[2024-03-09 07:17] LABS: AST(SGOT) 34 U/L (15-37); Alanine Aminotransfer ALT/SGPT 34 U/L (16-61); Albumin, Serum 3.4 g/dL (3.2-5.0); Alkaline Phosphatase 146 U/L (45-117); Bilirubin, Direct 0.22 mg/dL (0.00-0.30); Globulin 4.7 g/dL (2.2-4.2); Protein, Total 8.1 g/dL (6.4-8.2)
== END | disposition home or self-care (01) ==
LOC: LAB 06:00
PROVIDERS: PCP Family Medicine; Referring Provider Family Medicine; Visit Provider Family Medicine
DX: K70.11 Alcoholic hepatitis with ascites (principal)
CPT/HCPCS: 36415; 80076

== ENCOUNTER 2024-03-25 04:45 | Emergency (ER) | payer MEDICAID, SELFPAY ==
[2024-03-25 04:46] VITALS: BP 128/75; PULSE 96; RESP 18; TEMP 36.9; O2SAT 98; BMI 23.6
[2024-03-25 05:38] VITALS: BP 116/71; PULSE 87; RESP 16; TEMP 36.9; O2SAT 99
--- NOTE | 2024-03-25 05:38 | EX.ED.DYSGE1 ---
HPI History of Present Illness Chief Complaint: Other, Pain/Inj Informant: patient Narrative Narrative: Patient is a 28-year-old male with past medical history of alcohol use disorder leading to cirrhosis. He was admitted to the detox program in October 2023. He states he has been doing well and continuing to take his carvedilol and spironolactone secondary to his history of cirrhosis. He states he did not drink for multiple months but in the last week has been having 2-4 beers per day. He also reports he has noticed small lumps along his right and left breast. He states his family doctor is aware of this and has ordered him an outpatient ultrasound to check for potential breast mass/cancer but he did not have it performed yet. He states that he is unsure if he would need to be admitted because of the small amount of alcohol he has been drinking and his history of cirrhosis or if the ultrasound can be done at this time in the ER so he presents for evaluation [facility] Medical History Alcohol use disorder Ascites Cirrhosis Home Medications ?Medication ?Instructions ?Recorded ?Last Taken ?Type oxycodone-acetaminophen 5 mg-325 1 tab PO Q6H PRN pain 3 days #12 11/23/23 Unknown Rx mg tablet (Percocet) tabs carvedilol 6.25 mg tablet 6.25 mg PO BID #60 tabs 01/22/24 Unknown Rx hydroxyzine pamoate 25 mg capsule 50 mg (2 x 25 mg) PO Q4H PRN PRN 01/22/24 Unknown Rx mild anxiety #30 caps midodrine 5 mg tablet 5 mg PO TIDCM #90 tabs 01/22/24 Unknown Rx pantoprazole 40 mg tablet,delayed 40 mg PO BID #60 tabs 01/22/24 Unknown Rx release spironolactone 50 mg tablet 50 mg PO DAILY #30 tabs 01/22/24 Unknown Rx cephalexin 500 mg capsule 500 mg PO Q6 #40 CAPSULES 02/01/24 Unknown Rx bupropion HCl 150 mg 24 hr tablet, 150 mg PO QAM 03/21/24 Unknown History extended release (Wellbutrin XL) naltrexone 50 mg tablet 50 mg PO DAILY 14 days #14 tabs 03/25/24 Unknown Rx Allergy/AdvReac Type Severity Reaction Status Date / Time No Known Allergies Allergy Verified 03/25/24 04:46 Family History Father Hypertension Alcoholism Drug addiction Mother Breast cancer Lung cancer Surgical History History of herniorrhaphy Social History Smoking Status: Current every day smoker tobacco type: cigarettes alcohol intake: current alcohol intake frequency: 3 or more drinks per day Alcohol type: beer substance use type: marijuana ROS ROS ED Constitutional Constitutional ED: Denies chills or fever(s) ENT ENT ED: Denies sore throat Cardiovascular Cardiovascular: Denies chest pain Respiratory/Chest Respiratory/Chest: Denies cough or dyspnea Gastrointestinal Gastrointestinal: Denies abdominal pain, diarrhea, nausea or vomiting Genitourinary Genitourinary ED: Denies dysuria Musculoskeletal Musculoskeletal: Denies myalgias Integumentary Reports other Details: Positive breast lump Neurologic Neurologic: Denies headache(s) Psychiatric Psychiatric: Denies suicidal ideation or suicidal thoughts Hematologic/Lymphatic Hematologic/Lymphatic: Denies easy bleeding or easy bruising EXAM Physical Exam Const Vital Signs: 03/25/24 04:46 03/25/24 04:49 03/25/24 05:38 Temperature 98.5 F 98.5 F Temperature Source Oral Pulse Rate 96 87 Respiratory Rate 18 16 Respiratory Effort Normal Respiratory Pattern Normal Blood Pressure 128/75 H 116/71 Blood Pressure Mean 92 86 Pulse Ox 98 99 Oxygen Delivery Method Room Air Positive well nourished and well developed General Appearance ED: well developed HEENT HEENT Narrative: Normocephalic atraumatic Eyes PERRL and EOMs intact bilaterally General Eye ED: Negative for scleral icterus Neck supple and no JVD Resp normal respiratory effort and clear to auscultation bilaterally Cardio regular rate and regular rhythm GI normal to inspection, nondistended, normoactive bowel sounds, non-tender, non-distended and no masses GI Narrative: No obvious fluid wave/ascites noted Auscultation: normoactive bowel sounds Palpation: soft Extremity normal to inspection Extremity Narrative: No pitting edema noted Neuro oriented x3, CN's II-XII intact bilaterally and no sensory deficits noted Sensorium / Orientation: alert Motor Exam: strength 5/5 throughout Psych mental status grossly normal Skin Skin Narrative: Along the right breast near the areola there is a roughly 2 x 2 cm area of firmness that is movable in nature without discoloration or lymphangitic streaking most consistent with lipoma or cyst. There is a similar area along the left breast but only along the medial upper quadrant of the areola to essentially half by half centimeter. Also with no signs of secondary infection MDM MDM MDM Narrative Medical decision making narrative: Patient presented with stable vitals. He reported the masses had been present for multiple months. There is a concern it could be breast cancer based on his family history but as there is no skin discoloration or nipple discharge no signs of erythema or warmth I doubt this is cellulitis abscess or true cancer. As the area is soft and movable without discoloration or pain it is most likely a lipoma or a cyst. He was informed that we cannot perform an ultrasound for that at this time in the ER and he needs to continue to have the outpatient order performed. We discussed his alcohol use and he is adamant that he is only doing 2-4 beers a day and this amount would not lead to alcohol withdrawal. He also had labs obtained roughly 2 weeks ago which showed normalization of his liver enzymes indicating the spironolactone and carvedilol are helping and by exam he does not have fluid wave or edema of the extremities to suggest ascites. We will place him back on naltrexone to help prevent cravings which she states helped exponentially back in October when he went through detox. However at this time he is not homicidal is not suicidal he is not showing signs of active withdrawal or worsening ascites and therefore is otherwise safe for discharge. History & Record Review Discussion w/independent historian: Patient Discharge Plan Triage Chief Complaint: Other, Pain/Inj ED Provider: Lauro Rodrigues Dx/Rx/DC Orders Clinical Impression: Breast lump or mass, Alcohol use disorder, Cirrhosis Instructions: Substance Abuse Rehab Program Prescriptions: New naltrexone 50 mg tablet 50 mg PO DAILY 14 Days Qty: 14 0RF No Action bupropion HCl [Wellbutrin XL] 150 mg tablet extended release 24 hr 150 mg PO QAM carvedilol 6.25 mg Tablet 6.25 mg PO BID Qty: 60 0RF midodrine 5 mg Tablet 5 mg PO TIDCM Qty: 90 0RF pantoprazole 40 mg Tablet,Delayed Release (Dr/Ec) 40 mg PO BID Qty: 60 0RF spironolactone 50 mg Tablet 50 mg PO DAILY Qty: 30 0RF hydroxyzine pamoate 25 mg Capsule 50 mg PO Q4H PRN PRN (Reason: mild anxiety) Qty: 30 0RF oxycodone-acetaminophen [Percocet] 5-325 mg tablet 1 tab PO Q6H PRN (Reason: pain) 3 Days Qty: 12 0RF cephalexin 500 mg capsule 500 mg PO Q6 Qty: 40 0RF Primary Care Provider: Lizzie Samayoa Referrals: Lizzie Samayoa, DO [Primary Care Provider] - Activity Restrictions/Additional Instructions: Please refrain from alcohol for at least 24 hours and then begin taking the naltrexone to prevent alcohol craving. Continue your other medications as directed by your doctor and return to the ER should you have any further concerns Print Language: Upper Sorbian Disposition Disposition: Home, Self Care Discharge Date/Time: 03/25/24 05:45
== END 2024-03-25 05:45 | disposition home or self-care (01) ==
PROVIDERS: Emergency Provider Emergency Medicine; PCP Family Medicine; Visit Provider Emergency Medicine
DX: K74.60 Unspecified cirrhosis of liver (principal); F17.210 Nicotine dependence, cigarettes, uncomplicated; F10.90 Alcohol use, unspecified, uncomplicated; N63.10 Unspecified lump in the right breast, unspecified quadrant; N63.20 Unspecified lump in the left breast, unspecified quadrant
CPT/HCPCS: 99282

== ENCOUNTER → 2024-04-11 | Outpatient (CLI) | payer MEDICAID, SELFPAY ==
--- NOTE | 2024-04-11 08:15 | US_ITS ---
STUDY: ABDOMINAL ULTRASOUND - RIGHT UPPER QUADRANT; ELASTOGRAPHY REASON FOR VISIT: Male, 28 years old. Cirrhosis. TECHNIQUE: Ultrasound evaluation of the right upper quadrant was performed with real-time and static franklin-scale imaging. Point quantification shear wave elastography was performed ([employer]). TECHNICAL QUALITY: Adequate. COMPARISON: None. FINDINGS: Liver: The liver measures 15.2 cm. There is increased echogenicity consistent with fatty infiltration. The bile ducts are within normal limits. There is hepatic color flow. The direction of portal flow is hepatopetal. There is no demonstrated mass lesion. Median liver stiffness measured 17.3 kPa. Gallbladder: Normal distended gallbladder. The gallbladder wall measures 2.2 mm. There is a negative sonographic Morgan''s sign. There is no pericholecystic fluid. There are no gallstones. Common Bile Duct (C.B.D.): The common bile duct measures 4.6 mm. Pancreas: There is normal echogenicity of the visualized pancreas. There is no demonstrated pancreatic mass or cyst. Right Kidney: Normal size of the right kidney. The right kidney measures 9.2 cm x 4.8 cm x 5.8 cm. Normal renal cortex. The right cortex measures 1.2 cm. There is no demonstrated renal mass or cyst. There is no right hydronephrosis. US/ABD Limited w/ Elastography IMPRESSION: 1. Liver stiffness measures 17.3 kPa compatible with F3-F4 (Moderate to severe liver fibrosis) Metavir score. Electronically Signed: Bobo Ayers MD at 14:44 EST ,
== END | disposition home or self-care (01) ==
LOC: US 08:14
PROVIDERS: PCP Family Medicine; Referring Provider Internal Medicine; Visit Provider Internal Medicine
DX: K74.60 Unspecified cirrhosis of liver (principal); R18.8 Other ascites
CPT/HCPCS: 76705; 76981

== ENCOUNTER 2024-07-05 21:25 | Emergency (ER) | payer MEDICAID, SELFPAY ==
[2024-07-05 21:26] VITALS: BP 162/82; PULSE 120; RESP 20; TEMP 36.6; O2SAT 99; BMI 24.1
--- NOTE | 2024-07-05 22:42 | EX.ED.DYSGE1 ---
HPI History of Present Illness Chief Complaint: Abscess Informant: patient Narrative Narrative: Patient is a 28-year-old male with past medical history of alcohol abuse leading to cirrhosis and alcoholic hepatitis. He reports over the past 2 to 3 days he has had increasing right sided facial swelling with pain. He denies any recent trauma fevers or chills difficulty breathing or swallowing. He states that as the pain and swelling is increasing he was concerned for infection and therefore comes in for evaluation. [facility] Medical History Alcohol use disorder Ascites Cirrhosis Home Medications ?Medication ?Instructions ?Recorded ?Last Taken ?Type carvedilol 6.25 mg tablet 6.25 mg PO BID #60 tabs 01/22/24 Unknown Rx midodrine 5 mg tablet 5 mg PO TIDCM #90 tabs 01/22/24 Unknown Rx pantoprazole 40 mg tablet,delayed 40 mg PO BID #60 tabs 01/22/24 Unknown Rx release spironolactone 50 mg tablet 50 mg PO DAILY #30 tabs 01/22/24 Unknown Rx bupropion HCl 150 mg 24 hr tablet, 150 mg PO QAM 03/21/24 Unknown History extended release (Wellbutrin XL) naltrexone 50 mg tablet 50 mg PO DAILY 14 days #14 tabs 03/25/24 Unknown Rx hydroxyzine pamoate 25 mg capsule 25 mg PO Q4H PRN PRN mild anxiety 03/30/24 Unknown Rx #30 caps cefdinir 300 mg capsule 300 mg PO BID 10 days #20 caps 07/05/24 Unknown Rx Allergy/AdvReac Type Severity Reaction Status Date / Time No Known Allergies Allergy Verified 07/05/24 21:26 Family History Father Hypertension Alcoholism Drug addiction Mother Breast cancer Lung cancer Surgical History History of herniorrhaphy Social History Smoking Status: Current every day smoker tobacco type: cigarettes alcohol intake: current alcohol intake frequency: 3 or more drinks per day Alcohol type: beer substance use type: marijuana ROS ROS ED Constitutional Constitutional ED: Denies chills or fever(s) Eyes Eyes: Denies blurry vision or change in vision ENT ENT ED: Reports other Details: Positive right-sided facial swelling and pain ; Denies rhinorrhea or sore throat Cardiovascular Cardiovascular: Denies chest pain Respiratory/Chest Respiratory/Chest: Denies cough or dyspnea Gastrointestinal Gastrointestinal: Denies abdominal pain, diarrhea, nausea or vomiting Musculoskeletal Musculoskeletal: Denies myalgias Integumentary Denies rash Neurologic Neurologic: Denies headache(s) Hematologic/Lymphatic Hematologic/Lymphatic: Denies easy bleeding or easy bruising Allergic/Immunologic Allergic/Immunologic ED: Denies mouth swelling or tongue swelling EXAM Physical Exam Const Vital Signs: 07/05/24 21:26 07/05/24 22:16 Temperature 97.8 F Temperature Source Oral Pulse Rate 120 H Respiratory Rate 20 H Respiratory Effort Normal Non-Labored Respiratory Pattern Normal Blood Pressure 162/82 H Blood Pressure Mean 108 Pulse Ox 99 Oxygen Delivery Method Room Air Positive well nourished and well developed General Appearance ED: well developed HEENT Reports moist mucous membranes HEENT Narrative: There is swelling along the right mid to lower jawline/cheek on the right which is asymmetric when compared to the left. However there is no obvious induration or fluctuance to suggest abscess formation and no overlying erythema to suggest cellulitis. No tongue or lip swelling noted Patient does have dental caries present and there is mild swelling and irritation of the lower gingiva but no obvious/drainable abscess at this time No signs of ANUG No airway edema or compromise Eyes PERRL and EOMs intact bilaterally General Eye ED: Negative for scleral icterus Neck supple Neck Narrative: No brawny edema in the submental space to suggest Pop's angina Resp normal respiratory effort and clear to auscultation bilaterally Cardio regular rate and regular rhythm Extremity normal to inspection Neuro oriented x3, CN's II-XII intact bilaterally and no sensory deficits noted Sensorium / Orientation: alert Motor Exam: strength 5/5 throughout Psych mental status grossly normal Skin no rashes or lesions noted Skin Narrative: Mild soft tissue swelling to the right cheek/face as documented above without surrounding secondary findings to suggest abscess or cellulitis MDM MDM MDM Narrative Medical decision making narrative: Patient arrived to the ER hypertensive otherwise stable vitals and in no acute distress. He denied any recent trauma. By exam there is no obvious external facial abscess he does not have signs of Pop angina or ANUG and I do not palpate an enlarged salivary gland. With his dental caries and gingival irritation this is most likely early dental abscess. I do not feel an obvious area of fluctuance that would necessitate incision and drainage at this time but as his exam indicates this is developing infection I will place him on antibiotic. As he has history of alcoholic hepatitis and cirrhosis I do not want to place him on a medication that could cause worsening liver disease. Therefore start him on Omnicef as cephalosporins are generally safe in liver dysfunction. However as he does not have signs of systemic infection or airway compromise I do not feel there is need for further workup and is otherwise safe for discharge. History & Record Review Discussion w/independent historian: Patient Discharge Plan Triage Chief Complaint: Abscess ED Provider: Lauro Rodrigues Dx/Rx/DC Orders Clinical Impression: Dental abscess, Cirrhosis, Alcoholic hepatitis Instructions: Dental Abscess, ED Abscess Antibiotic Treatment Only Prescriptions: New cefdinir 300 mg capsule 300 mg PO BID 10 Days Qty: 20 0RF No Action bupropion HCl [Wellbutrin XL] 150 mg tablet extended release 24 hr 150 mg PO QAM hydroxyzine pamoate 25 mg capsule 25 mg PO Q4H PRN PRN (Reason: mild anxiety) Qty: 30 0RF carvedilol 6.25 mg Tablet 6.25 mg PO BID Qty: 60 0RF midodrine 5 mg Tablet 5 mg PO TIDCM Qty: 90 0RF pantoprazole 40 mg Tablet,Delayed Release (Dr/Ec) 40 mg PO BID Qty: 60 0RF spironolactone 50 mg Tablet 50 mg PO DAILY Qty: 30 0RF naltrexone 50 mg tablet 50 mg PO DAILY 14 Days Qty: 14 0RF Stand Alone Forms: ED Work / School Excuse Primary Care Provider: Lizzie Samayoa Referrals: Lizzie Samayoa, DO [Primary Care Provider] - Activity Restrictions/Additional Instructions: Your exam does not show any obvious drainable fluid collection at this time. Therefore take the antibiotic as directed to help resolve the infection and return to the ER should you have any further concerns or worsening of symptoms. Print Language: Bengali Disposition Disposition: Home, Self Care Discharge Date/Time: 07/05/24 22:53
[2024-07-05] MEDS: Cefdinir 300 MG Capsule PO (22:51)
== END 2024-07-05 22:53 | disposition home or self-care (01) ==
LOC: ED 22:48
PROVIDERS: Emergency Provider Emergency Medicine; PCP Family Medicine; Visit Provider Emergency Medicine
DX: K04.7 Periapical abscess without sinus (principal); K74.60 Unspecified cirrhosis of liver; K70.10 Alcoholic hepatitis without ascites; K02.9 Dental caries, unspecified; F17.210 Nicotine dependence, cigarettes, uncomplicated
CPT/HCPCS: 99283

== ENCOUNTER 2025-03-18 07:20 | Emergency (ER) | payer MEDICAID, SELFPAY ==
[2025-03-18 07:21] VITALS: BP 148/80; PULSE 107; RESP 18; TEMP 36.8; O2SAT 100; BMI 22.6
--- NOTE | 2025-03-18 07:35 | EDS_ITS ---
HPI History of Present Illness Chief Complaint: Dental Narrative Narrative: Pt is a 29-year-old male who is presenting to the ER with chief complaint of acute on chronic dental pain. Patient has mild right facial swelling. Patient stated that he laid on a heating pack last evening. Patient said the only relief he can get to try to sleep was a heating pad, but it felt worse this morning and more swelling this morning. Patient takes no foul taste, no pus or bad taste in his mouth. Patient has no fever or chills. Patient denies any trauma. Patient states he has not seen a dentist since approximately age 17, approximately 12 years ago. Patient states I am afraid of the dentist no tongue swelling, no difficulty swallowing, no difficulty breathing. No nausea, vomiting, headache, fever, chills, neck pain, no other acute complaints. REVIEW OF SYSTEMS: Unless otherwise stated in this report the patient's positive and negative responses for review of systems for constitutional, eyes, ENT, cardiovascular, respiratory, gastrointestinal, neurological, , musculoskelet al, and integument systems and related systems to the presenting problem are either stated in the history of present illness or were not pertinent or were negative for the symptoms and/or complaints related to the presenting medical problem. Nurse's notes and vital signs reviewed. The patient is not hypoxic. Vital signs reviewed and patient is not hypoxic. Nurses notes reviewed and patient is noted to be non-hypoxic. General: The patient is comfortable, alert and oriented x3, well appearing, non toxic in no apparent distress. Head: Atraumatic and normocephalic. Eyes: Normal conjunctiva ENT: The oropharynx is normal. No pharyngeal erythema, uvular edema, tonsillar exudates, asymmetry or trismus. Uvula is midline. Mouth is normal to inspection With the exception of a pain on percussion of the tooth #2,3 and evidence of dental caries. There is mild evidence of facial asymmetry or abscess formation. Floor of the mouth is soft. No tenderness in the submental or submandibular space. No tongue elevation or deviation. The patient has no evidence of periapical abscess, gingivitis, ANUG or other acute pathology. Airway is patent. Neck: The neck demonstrates normal range of motion. No meningeals signs are present. No stridor. No masses or lymphandenopathy noted. Respiratory: No acute distress, lungs are clear to auscultation, no wheezing, rhonchi, or rales noted. No stridor or retractions are noted. Cardiovascular: Regular rate and rhythm Skin: The skin exam shows no evidence of rashes Neuro: Alert and oriented x4, normal speech Lymphatic: No cervical lymphadenopathy [facility] Medical History Alcohol use disorder Ascites Cirrhosis Home Medications ?Medication ?Instructions ?Recorded ?Last Taken ?Type carvedilol 6.25 mg tablet 6.25 mg PO BID #60 tabs 04/15 Unknown Rx midodrine 5 mg tablet 5 mg PO TIDCM #90 tabs 01/21 Unknown Rx pantoprazole 40 mg tablet,delayed 40 mg PO BID #60 tab s 01/22/24 Unknown Rx release spironolactone 50 mg tablet 50 mg PO DAILY #30 tabs Unknown Rx bupropion HCl 150 mg 24 hr tablet, 150 mg PO QAM 03/21 Unknown History extended release (Wellbutrin XL) naltrexone 50 mg tablet 50 mg PO DAILY 14 days #14 t abs 03/25/24 Unknown Rx hydroxyzine pamoate 25 mg capsule 25 mg PO Q4H PRN PRN mild anxiety 03/30/24 Unknown Rx #30 caps cefdinir 300 mg capsule 300 mg PO BID 10 days #20 ca ps 07/05/24 Unknown Rx penicillin V potassium 500 mg 500 mg PO 3XD #30 tabs 1 05/19/24 Unknown Rx tablet Allergy/AdvReac Type Severity Reaction Status Date / Time No Known Allergies Allergy Verified 03/18/25 07:22 Family History Father Hypertension Alcoholism Drug addiction Mother Breast cancer Lung cancer Surgical History History of herniorrhaphy Social History Smoking Status: Current every day smoker tobacco type: cigarettes alcohol intake: current alcohol intake frequency: 3 or more drinks per day Alcohol type: beer substance use type: marijuana EXAM Physical Exam Const Vital Signs: 03/18/25 07:21 03/18/25 07:53 Temperature 98.2 F 98.5 F Temperature Source Oral Pulse Rate 107 H 75 Respiratory Rate 18 16 Blood Pressure 148/80 H 125/76 H Blood Pressure Mean 102 92 Pulse Ox 100 100 Oxygen Delivery Method Room Air MDM MDM MDM Narrative Medical decision making narrative: Patient is having acute on chronic dental pain. Patient is having more swelling to the right side of his face today than it was yesterday secondary to using a h eating pad several times last evening. Patient knows that he must follow-up with a dentist. Patient states he is afraid of the dentist. Patient had no foul taste no pus, no signs of any type of drainage inside the mouth. Patient has facial swelling noted to the right lower cheek that is mild, no acute signs of abscess. Education on treatment of pain, and patient will be placed on antibiotic prophylactically. Patient has not had any dental care in over 12 years. No question discharge Discharge Plan Triage Chief Complaint: Dental ED Provider: Doyle Gonzalez Dx/Rx/DC Orders Clinical Impression: Atypical facial pain, Right facial swelling, Chronic enamel dental caries Instructions: Understanding Tooth Decay, ED Dental Pain, ED Dental Abscess Prescriptions: New penicillin V potassium 500 mg tablet 500 mg PO 3XD Qty: 30 0RF No Action bupropion HCl [Wellbutrin XL] 150 mg tablet extended release 24 hr 150 mg PO QAM hydroxyzine pamoate 25 mg capsule 25 mg PO Q4H PRN PRN (Reason: mild anxiety) Qty: 30 0RF carvedilol 6.25 mg Tablet 6.25 mg PO BID Qty: 60 0RF midodrine 5 mg Tablet 5 mg PO TIDCM Qty: 90 0RF pantoprazole 40 mg Tablet,Delayed Release (Dr/Ec) 40 mg PO BID Qty: 60 0RF spironolactone 50 mg Tablet 50 mg PO DAILY Qty: 30 0RF cefdinir 300 mg capsule 300 mg PO BID 10 Days Qty: 20 0RF naltrexone 50 mg tablet 50 mg PO DAILY 14 Days Qty: 14 0RF Primary Care Provider: Lizzie Samayoa Referrals: [facility] [Outside] Lizzie Samayoa, DO [Primary Care Provider, Family Practice] Activity Restrictions/Additional Instructions: Use ice 20 minutes on, 20 minutes off, do not use heat. For temporary use for the next 3 to 5 days, you may alternate Tylenol and either Motrin, Advil, ibuprofen every 4 hours as needed for pain/fever. Take anti- inflammatories with food or drink to help buffer the medication. MAX dose of Tylenol is 3000 mg a day. MAX dose of Motrin, Advil, ibuprofen is 2400 mg a day. Use [id number] Orajel. A list of dental clinics has been provided for you. It is imperative that you follow-up with a dentist for definitive dental care since he has not seen a dentist in over 10 years. Print Language: Swazi Disposition Disposition: Home, Self Care Discharge Date/Time: 03/18/25 07:58
--- OUTSIDE RECORDS SUMMARY | 2025-03-18 07:47 | XMS RPT_ITS | CCD ---
Author Organization [facility] CliniSy[facility] Care Team Providers Care Medical Receptionist Biller Name Role Phone Linda Sims Unavailable Roya Johnston Unavailable RenzoKenny ivan Sachin Unavailable Loan Chadwick Unavailable Danita DO, Lizzie Primary Care Provider Danita DO, Lizzie Attending Provider Danita DO, Lizzie Referring Provider [phone] Dr. Lauro Rodrigues DO Attending Provider Dr. Lauro Rodrigues DO Emergency Provider Esa BRICENO, Dr. Platt Attending Provider Esa BRICENO, Dr. Platt Referring Provider Hira Barakat Attending Unavailable Care Physician, No Primary Primary Care Unava ilable Danita VSC, Lizzie Primary Care Unavailable Lauro Rodrigues Attending Unavailable Oscar Garcia Attending Unavailable Danita VSC, Lizzie Primary Care Unavailable Perry Hansen Attending Unavailable Danita VSC, Lizzie Primary Care Unavailable Devonte Petit Admitting Unavailable Devonte Petit Referring Unavailable Devonte Petit Consulting Unavailable Devonte Petit Attending Unavailable Danita VSC, Lizzie Primary Care Unavailable Danita VSC, Lizzie Referring Unavailable Adnita VSC, Lizzie Attending Unavailable Danita VSC, Lizzie Primary Care Unavailable Lc See Referring Unavailable Lc See Attending Unavailable Danita VSC, Lizzie Primary Care Unavailable Devonte Petit Attending Unavailable Berlineletskrystin Devonte Admitting Unavailable Danita VSC, Lizzie Primary Care Unavailable [facility] Referring Unavailable [facility], Lizzie Attending Unavailable [facility], [facility] Primary Care Unavailable Lauro Rodrigues Attending Unavailable [facility] Primary Care Unavailable [facility], [facility] Referring Unavailable Lc See Attending Unavailable [facility], [facility] Primary Care Unavailable Lauro Rodrigues Attending Unavailable Medications Current Medications Medication Drug Class(es) Dates Sig (Normalized) Sig (Original) 24 hr buPROPion hydrochloride 150 mg extended release oral tablet (1 source) Aminoketone Start: 03-21-2024 take 1 tablet by mouth once daily in the morning Bupropion Hcl (Wellbutrin Xl) 150 mg tablet extended release 24 hr Active 150 mg PO EVERY MORNING March 21, 2024 1:00am carvedilol 6.25 mg oral tablet (1 source) alpha-Adrenergic Mora, beta-Adrenergic Mora Start: 01-22-2024 take 1 tablet by mouth twice daily Carvedilol 6.25 mg Tablet Active 6.25 mg PO TWICE A DAY January 22, 2024 12:00am cefdinir 300 mg oral capsule (1 source) Cephalosporin Antibacterial Start: 07-05-2024 take 1 capsule by mouth twice daily Cefdinir 300 mg capsule Active 300 mg PO TWICE A DAY 09 01July 05, 2024 12:00am hydrOXYzine pamoate 25 mg oral capsule (2 sources) Antihistamine Start: 03-30-2024 take 1 capsule by mouth every four hours as needed for anxiety Hydroxyzine Pamoate 25 mg capsule Active 25 mg PO EVERY 4 HOURS NEEDED as needed for mild anxiety March 30, 2024 10:07am Start: 01-22-2024 End: 03-30-2024 Hydroxyzine Pamoate 25 mg Ca psule Discontinued 50 mg PO EVERY 4 HOURS NEEDED as needed for mild anxiety January 22, 2024 12:00am March 30, 2024 10:14am midodrine hydrochloride 5 mg oral tablet (1 source) alpha-Adrenergic Agonist Start: 01-22-2024 take 1 tablet by mouth three times daily at mealtime Midodrine 5 mg Tablet Active 5 mg PO 3 TIMES DAILY WITH MEALS January 22, 2024 12:00am naltrexone hydrochloride 50 mg oral tablet (1 source) Opioid Antagonist Start: 03-25-2024 take 1 tablet by mouth once daily Naltrexone 50 mg tablet Active 50 mg PO DAILY 14 March 25, 2024 1:00am pantoprazole 40 mg delayed release oral tablet (1 source) Proton Pump Inhibitor Start: 01-22-2024 take 1 tablet by mouth twice daily Pantoprazole 40 mg Tablet,Delayed Release (Dr/Ec) Active 40 mg PO TWICE A DAY January 22, 2024 12:00am spironolactone 50 mg oral tablet (1 source) Aldosterone Antagonist Start: 01-22-2024 take 1 tablet by mouth once daily Spironolactone 50 mg Tablet Active 50 mg PO DAILY January 22, 2024 12:00am sulfamethoxazole 800 mg / trimethoprim 160 mg oral tablet (1 source) Dihydrofolate Reductase Inhibitor Antibacterial, Sulfonamide Antimicrobial Start: 05-12-2021 End: 05-21-2021 take 1 tablet by mouth twice daily Bactrim DS 800 mg-160 mg oral tablet ; 1 tab(s) orally 2 times a day x 10 days Quantity: 20 Refills: 0 Ordered: 12-May-2021 Loan Chadwick Start: 12-May-2021 End: 21-May-2021 Generic Substitution Allowed Comments: Avoid prolonged or excessive exposure to direct and/or artificial sunlight while taking this medication.Finish all this medication unless otherwise directed by prescriber.Medicat ion should be taken with plenty of water. Comment on above: Avoid prolonged or e xcessive exposure to direct and/or artificial sunlight while taking this medication.Finish all this medication unless otherwise directed by prescriber.Medication should be taken with plenty of water. Completed/Discontinued Medications Medication Drug Class(es) Dates Sig (Normalized) Sig (Original) acetaminophen 325 mg / oxyCODONE hydrochloride 5 mg oral tablet (1 source) Opioid Agonist Start: 11-23-2023 End: 07-05-2024 Oxycodone-Acetamin ophen (Percocet) 5-325 mg tablet Discontinued 1 {tbl} PO EVERY 6 HOURS as needed for pain 12 November 23, 2023 July 05, 2024 10:13pm amoxicillin 875 mg / clavulanate 125 mg oral tablet (1 source) Penicillin-class Antibacterial Start: 11-23-2023 End: 01-20-2024 Amoxicillin-Pot Clavulanate 875-125 mg tablet Discontinued 1 {tbl} PO TWICE A DAY 09 01November 23, 2023 12:00am January 20, 2024 7:00am cephalexin 500 mg oral capsule (3 sources) Cephalosporin Antibacterial Start: 02-01-2024 End: 03-30-2024 take 1 capsule by mouth every six hours Cephalexin 500 mg capsule Discontinued 500 mg PO EVERY 6 HOURS February 01, 2024 1:00am March 30, 2024 10:07am Start: 04-03-2015 take 1 capsule by mo uth every six hours Keflex 500 mg oral capsule ; 1 cap(s) orally every 6 hours Quantity: 40 Refills: 0 Ordered: 02-Apr-2015 Kirby Wolff Start: 02-Apr-2015 Generic Substitution Allowed Comments: Finish all this medication unless otherwise directed by prescriber. Comment on above: Finish all this medi cation unless otherwise directed by prescriber. clindamycin 300 mg oral capsule (5 sources) Lincosamide Antibacterial Start: 07-28-19 End: 11-23-19 take 1 capsule by mouth every eight hours Clindamycin Hcl 300 mg capsule Discontinued 300 mg PO Q8H July 28, 2023 12:00am November 23, 2023 3:24am Start: 06-13-2023 End: 11-23-2023 take 1 capsule by mouth every six hours Clindamycin Hcl (Cleocin Hcl) 300 mg capsule Discontinued 300 mg PO EVERY 6 HOURS June 13, 2023 12:00am November 23, 2023 3:24am ibuprofen 600 mg oral tablet (4 sources) Nonsteroidal Anti-inflammatory Drug Start: 11-23-2023 End: 01-22-2024 take 1 tablet by mouth four times daily as needed for pain Ibuprofen 600 mg tablet Discontinued 600 mg PO 4 TIMES DAILY as needed for pain November 23, 2023 3:45am January 22, 2024 3:46pm Start: 05-12-2021 End: 05-18-2021 take 1 tablet by mouth every eight hours ibuprofen 600 mg oral tablet ; 1 tab(s) orally every 8 hours as needed for pain Quantity: 21 Refills: 0 Ordered: 12-May-2021 Loan Chadwick Start: 12-May-2021 End: 18-May-2021 Generic Substitution Allowed Comments: Do not take this drug if you are .It is very important that you take or use this exactly as directed. Do not skip doses or discontinue unless directed by your doctor.May cause drowsiness or dizziness.Obtain medical advice before taking any non-prescription drugs as some may affect the action of this medication.Take with food or milk. Start: 05-17-2014 take 1 tablet by nicol th every six hours ibuprofen 600 mg oral tablet ; 1 tab(s) orally every 6 hours as needed for Pain or Fever Quantity: 30 Refills: 1 Ordered: 16-May-2014 Anibal Becerril Start: 16-May-2014 Generic Substitution Allowed Comments: Do not take this drug if you are .It is very important that you take or use this exactly as directed. Do not skip doses or discontinue unless directed by your doctor.May cause drowsiness or dizziness.Obtain medical advice before taking any non-prescription drugs as some may affect the action of this medication.Take with food or milk. Comment on above: Do not take this anum g if you are .It is very important that you take or use this exactly as directed. Do not skip doses or discontinue unless directed by your doctor.May cause drowsiness or dizziness.Obtain medical advice before taking any non-prescription drugs as some may affect the action of this medication.Take with food or milk. omeprazole 20 mg delayed release oral capsule (5 sources) Proton Pump Inhibitor Start: 11-23-19 End: 01-22-20 take 2 capsules by mouth once daily as needed Omeprazole 20 mg capsule,delayed release(DR/EC) Discontinued 40 mg PO DAILY as needed for stomach November 23, 2023 12:00am January 22, 2024 3:47pm Start: 05-15-2023 End: 11-23-2023 take 1 capsule by mouth once daily Omeprazole 20 mg capsule,delayed release(DR/EC) Discontinued 20 mg PO DAILY May 15, 2023 1:00am November 23, 2023 3:24am polymyxin b [id number] unt/ml / trimethoprim 1 mg/ml ophthalmic solution (2 sources) Dihydrofolate Reductase Inhibitor Antibacterial, Polymyxin-class Antibacterial Start: 12-14-2020 End: 12-23-2020 take 1 drop(s) into the eye(s) every three hours polymyxin B-trimethoprim 10,000 units-1 mg/mL ophthalmic solution ; 1 drop(s) in each affected eye every 3 hours while awake for 10 days Quantity: 1 Refills: 0 Ordered: 14-Dec-2020 Roya Johnston Start: 14-Dec-2020 End: 23-Dec-2020 Generic Substitution Allowed Comments: For the eye. Comment on above: For the eye. Problems Active Problems Problem Classification Problem Date Documented Da te Episodic/Chronic Alcohol-related disorders (9 sources) Alcoholic gastritis; Translations: [Alcoholic gastritis with bleeding] Onset: 4 05-15-2023 Chronic Disorders of teeth and jaw (3 sources) Dental abscess; Translations: [Periapical abscess without sinus] Onset: 5 07-05-2024 Episodic Esophageal disorders (1 source) Gastroesophageal reflux disease; Translations: [Gastro-esophageal reflux disease without esophagitis] 12-01-2023 Chronic Essential hypertension (1 source) Hypertensive disorder; Translations: [Essential (primary) hypertension] 12-01-2023 Chronic Inflammation; infection of eye (except that caused by tuberculosis or sexually transmitteddisease) (1 source) Bacterial conjunctivitis; Translations: [Conjunctivitis, unspecified] 12-14-2020 Episodic Nonmalignant breast conditions (2 sources) Breast lump; Translations: [Unspecified lump in unspecified breast] Onset: 5 04-02-2024 Episodic Other gastrointestinal disorders (1 source) Ascites; Translations: [Other ascites] 02-01-2024 Episodic Other liver diseases (1 source) Cirrhosis of liver; Translations: [Unspecified cirrhosis of liver] 02-01-2024 Chronic Other liver diseases (2 sources) Unspecified cirrhosis of liver; Translations: [Unspecified cirrhosis of liver] Onset: Chronic Other upper respiratory disease (1 source) Bleeding from nose; Translations: [Epistaxis] 02-10-2024 Episodic Residual codes; unclassified (2 sources) Other specified conditions influencing health status; Translations: [Alcohol use disorder] 03-30-2024 Episodic Unclassified (2 sources) PINK EYE 12-14-2020 Comment on above: PINK EYE Unclassified (1 source) Bacterial conjunctivitis of both eyes 12-14-2020 Unclassified (2 sources) FACIAL PAIN 05-12-2021 Comment on above: FACIAL PAIN Unclassified (1 source) Alcohol use, unspecified, uncomplicated; Translations: [Alcohol use, unspecified, uncomplicated] Onset: Past or Other Problems Problem Classification Problem Date Documented Da te Episodic/Chronic Other gastrointestinal disorders (2 sources) Other ascites; Translations: [Other ascites] Onset: 02-04-2024 Episodic Other upper respiratory disease (1 source) Epistaxis; Translations: [Epistaxis] Onset: 02-25-2024 Episodic Skin and subcutaneous tissue infections (7 sources) Abscess of face; Translations: [Cellulitis and abscess of face] Onset: 08-03-2023 05-12-2021 Episodic Results Test Name Value Interpretation Reference Range Facility Emergency Department Summary on 07-05-2024 Emergency Department Summary [facility] Medical Records Department [address] [place] [address] Emergency Department Summary 07/05/24 MR#: [id number] Acct: [id number] Name: JORGE HERNANDEZ Rep #: [id number] : 1995 28 From: Lauro Rodrigues DO PCP: Lizzie Samayoa DO Status:DEP ER Location: ED HPI History of Present Illness Chief Complaint: Abscess Informant: patient Narrative Narrative: Patient is a 28-year-old male with past medical history of alcohol abuse leading to cirrhosis and alcoholic hepatitis. He reports over the past 2 to 3 days he has had increasing right sided facial swelling with pain. He denies any recent trauma fevers or chills difficulty breathing or swallowing. He states that as the pain and swelling is increasing he was concerned for infection and therefore comes in for evaluation. [facility] Medical History Alcohol use disorder Ascites Cirrhosis Home Medications ???Medication ???Instructions ???Recorded ???Last Taken ???Type carvedilol 6.25 mg tablet 6.25 mg PO BID #60 tabs 01/22/24 U nknown Rx midodrine 5 mg tablet 5 mg PO TIDCM #90 tabs 01/22/24 Un known Rx pantoprazole 40 mg tablet,delayed 40 mg PO BID #60 tabs 01/22/24 Un known Rx release spironolactone 50 mg tablet 50 mg PO DAILY #30 tabs 01/22/24 U nknown Rx bupropion HCl 150 mg 24 hr tablet, 150 mg PO QAM 03/21/24 Unknown H istory extended release (Wellbutrin XL) naltrexone 50 mg tablet 50 mg PO DAILY 14 days #14 tabs Unknown Rx hydroxyzine pamoate 25 mg capsule 25 mg PO Q4H PRN PRN mild anxiety 03/30/24 Unknown Rx #30 caps cefdinir 300 mg capsule 300 mg PO BID 10 days #20 caps Unknown Rx Allergy/AdvReac Type Severity Reaction Status Date / Time No Known Allergies Allergy Verified 07/05/24 21:26 Family History Father Hypertension Alcoholism Drug addiction Mother Breast cancer Lung cancer Surgical History History of herniorrhaphy Social History Smoking Status: Current every day smoker tobacco type: cigarettes alcohol intake: current alcohol intake frequency: 3 or more drinks per day Alcohol type: beer substance use type: marijuana ROS ROS ED Constitutional Constitutional ED: Denies chills or fever(s) Eyes Eyes: Denies blurry vision or change in vision ENT ENT ED: Reports other Details: Positive right-sided facial swelling and pain ; Denies rhinorrhea or sore throat Cardiovascular Cardiovascular: Denies chest pain Respiratory/Chest Respiratory/Chest: Denies cough or dyspnea Gastrointestinal Gastrointestinal: Denies abdominal pain, diarrhea, nausea or vomiting Musculoskeletal Musculoskeletal: Denies myalgias Integumentary Denies rash Neurologic Neurologic: Denies headache(s) Hematologic/Lymphatic Hematologic/Lymphatic: Denies easy bleeding or easy bruising Allergic/Immunologic Allergic/Immunologic ED: Denies mouth swelling or tongue swelling EXAM Physical Exam Const Vital Signs: 07/05/24 21:26 07/05/24 22:16 Temperature 97.8 F Temperature Source Oral Pulse Rate 120 H Respiratory Rate 20 H Respiratory Effort Normal Non-Labored Respiratory Pattern Normal Blood Pressure 162/82 H Blood Pressure Mean 108 Pulse Ox 99 Oxygen Delivery Method Room Air Positive well nourished and well developed General Appearance ED: well developed HEENT Reports moist mucous membranes HEENT Narrative: There is swelling along the right mid to lower jawline/cheek on the right which is asymmetric when compared to the left. However there is no obvious induration or fluctuance to suggest abscess formation and no overlying erythema to suggest cellulitis. No tongue or lip swelling noted Patient does have dental caries present and there is mild swelling and irritation of the lower gingiva but no obvious/drainable abscess at this time No signs of ANUG No airway edema or compromise Eyes PERRL and EOMs intact bilaterally General Eye ED: Negative for scleral icterus Neck supple Neck Narrative: No brawny edema in the submental space to suggest Pop's angina Resp normal respiratory effort and clear to auscultation bilaterally Cardio regular rate and regular rhythm Extremity normal to inspection Neuro oriented x3, CN's II-XII intact bilaterally and no sensory deficits noted Sensorium / Orientation: alert Motor Exam: strength 5/5 throughout Psych mental status grossly normal Skin no rashes or lesions noted Skin Narrative: Mild soft tissue swelling to the right cheek/face as documented above without surrounding secondary f (more content not included)... Normal [facility] ABD Limited w/ Elastographyo n 04-11-2024 ABD Limited w/ Elastography [facility] Imaging Services [address] [place] [address] ABD Limited w/ Elastography MR#: [id number] Acct: [id number] Name: JORGE HERNANDEZ Rep #: [id number] : 1995 M 28 From: Bobo samuels MD PCP: Lizzie Samayoa DO Status: REG CLI Study: ABD Limited w/ Elastography Date of Exam: 03/24 Exam# [id number] Ordering Dr: Lc See MD [id number] STUDY: ABDOMINAL ULTRASOUND - RIGHT UPPER QUADRANT; ELASTOGRAPHY REASON FOR VISIT: Male, 28 years old. Cirrhosis. TECHNIQUE: Ultrasound evaluation of the right upper quadrant was performed with real-time and static franklin-scale imaging. Point quantification shear wave elastography was performed (Exoprise). TECHNICAL QUALITY: Adequate. COMPARISON: None. FINDINGS: Liver: The liver measures 15.2 cm. There is increased echogenicity consistent with fatty infiltration. The bile ducts are within normal limits. There is hepatic color flow. The direction of portal flow is hepatopetal. There is no demonstrated mass lesion. Median liver stiffness measured 17.3 kPa. Gallbladder: Normal distended gallbladder. The gallbladder wall measures 2.2 mm. There is a negative sonographic Morgan''s sign. There is no pericholecystic fluid. There are no gallstones. Common Bile Duct (C.B.D.): The common bile duct measures 4.6 mm. Pancreas: There is normal echogenicity of the visualized pancreas. There is no demonstrated pancreatic mass or cyst. Right Kidney: Normal size of the right kidney. The right kidney measures 9.2 cm x 4.8 cm x 5.8 cm. Normal renal cortex. The right cortex measures 1.2 cm. There is no demonstrated renal mass or cyst. There is no right hydronephrosis. US/ABD Limited w/ Elastography IMPRESSION: 1. Liver stiffness measures 17.3 kPa compatible with F3-F4 (Moderate to severe liver fibrosis) Metavir score. Electronically Signed: Bobo Ayers MD at 14:44 EST Reading Location ID and State: [facility] / [place] , Service support , CC: Dr. Lc See MD; Lizzie Samayoa DO Cast Iron Drain Pipe Layer: Signed Normal [facility] Gastroenterology Visit Repor ton 03-30-2024 Gastroenterology Visit Report [facility] Gastroenterology [address] [place] [address] OFFICE VISIT Date of Service: 03/30/24 MR#: [id number] Acct: [id number] Name: JORGE HERNANDEZ Rep #: [id number] : 1995 Provider: Dr. Lc resendez MD Age/Sex: 28/M Location: [email or web address] Status: Signed Intake Vital Signs 02/01/24 22:21 03/25/24 04:46 03/30/24 09:20 Height 5 ft 7 in 5 ft 7 in 5 ft 7 in Weight: 145 lb BMI 22.7 BP 129/85 H Respiration 16 Pulse 92 Pulse Oximetry (%) 96 Oxygen Delivery Method room air Intake Visit Reasons: ALCOHOLIC HEPATITIS Allergies No Known Allergies Allergy (Verified 03/25/24 04:46) Medications ???Medication ???Instructions ???Recorded ???Confirmed ???Type oxycodone-acetaminophen 5 mg-325 1 tab PO Q6H PRN pain 3 days #12 11/23/23 Rx mg tablet (Percocet) tabs carvedilol 6.25 mg tablet 6.25 mg PO BID #60 tabs 01/22/24 03/25/24 Rx midodrine 5 mg tablet 5 mg PO TIDCM #90 tabs 01/22/24 03/21/24 Rx pantoprazole 40 mg tablet,delayed 40 mg PO BID #60 tabs 01/22/24 03/25/24 Rx release spironolactone 50 mg tablet 50 mg PO DAILY #30 tabs 01/22/24 03/25/24 Rx bupropion HCl 150 mg 24 hr tablet, 150 mg PO QAM 03/21/24 03/21/24 History extended release (Wellbutrin XL) naltrexone 50 mg tablet 50 mg PO DAILY 14 days #14 tabs 03/25/24 Rx hydroxyzine pamoate 25 mg capsule 25 mg PO Q4H PRN PRN mild anxiety 03/30/24 03/30/24 Rx #30 caps Nurse's Note: Unable to sleep at night because of the itching, that is when he wants to drink so he can sleep. That has been the hardest for him currently. [facility] Medical History Alcohol use disorder Ascites Cirrhosis Surgical History History of herniorrhaphy Family History Father Hypertension Alcoholism Drug addiction Mother Breast cancer Lung cancer Social History Smoking Status: Current every day smoker tobacco type: cigarettes alcohol intake: current alcohol intake frequency: 3 or more drinks per day Alcohol type: beer substance use type: marijuana HPI HPI Details: JORGE HERNANDEZ, is a 28 M who presents to the office today for follow-up after hospital admission in the last week of December 2023 for alcohol withdrawal and alcoholic hepatitis/cirrhosis. Patient had paracentesis about 2500 mL at that time. Patient also has history of ADHD and needs to see psychiatrist. He has anxiety and insomnia and could not sleep therefore he started drinking again on March 23. He was sober for 2 months after hospital discharge. Alcohol drinking pattern: Patient started drinking alcohol at the age of 13, in 2008. He was drinking 3-4 beer per day, 24 ounces again. He after that he started drinking hard liquor, vodka 1/5 of the bottle per day along with severe. Then he was admitted #2 negative for sober for 2 months then relapsed on March 23 ROS Const Constitutional: No fatigue, fever(s), weakness or weight change ENT ENT: Positive for other (Decreased mechanic senior erection. Not sexually active.); No difficulty swallowing Resp Respiratory: No shortness of breath or wheezing Cardio Cardiology: No chest pain at rest or dyspnea on exertion Gastro GI: Positive for bloating, change in bowel habits, constipation, heartburn and other (jaundice); No abdominal pain, belching, change in stool character, coffee ground emesis, cramping, diarrhea, difficulty swallowing, feeling full early, excessive flatus, incontinent of stools, Vomiting blood/hematemesis, Blood in stool, loose stools, Black,tarry stools, nausea/dyspepsia, pain with swallowing or vomiting Genitourinary Male: No difficulty urinating or burning urination Musc Musculoskeletal: No joint pain Skin Skin: Positive for itchy eyes; No yellowing of the eye Breast Breast: Positive for breast swelling (Bilateral.) Neuro Neurology: No abnormal movements, behavioral changes, weakness or lack of coordination Psych Psychiatric: Positive for anxiety, No behavioral changes, Positive for depression, Positive for paranoia, Positive for Compulsive Behavior, Positive for hyperactivity, Positive for inattentiveness and Positive for obsessions/compulsions Endo Endocrine: Positive for other (Decreased mechanic senior erection. Not sexually active.); No fatigue or weight change Aller/Imm Allergy/Immunologic: Positive for itchy eyes; No wheezing Neil/Lymp Hematologic/Lymphatic: No easy bleeding or easy bruising Exam Const General: cooperative, no acute distress and well developed Nutritional Appearance: average body habitus Orientation: alert, awake and oriented x3 HENMT (more content not included)... Normal [facility] Emergency Department Summary on 03-25-2024 Emergency Department Summary [facility] Medical Records Department [address] [place] [address] Emergency Department Summary 03/25/24 MR#: [id number] Acct: [id number] Name: JORGE HERNANDEZ Rep #: [id number] : 1995 28 From: Lauro Rodrigues DO PCP: Lizzie Samayoa DO Status:DEP ER Location: ED HPI History of Present Illness Chief Complaint: Other, Pain/Inj Informant: patient Narrative Narrative: Patient is a 28-year-old male with past medical history of alcohol use disorder leading to cirrhosis. He was admitted to the detox program in October 2023. He states he has been doing well and continuing to take his carvedilol and spironolactone secondary to his history of cirrhosis. He states he did not drink for multiple months but in the last week has been having 2-4 beers per day. He also reports he has noticed small lumps along his right and left breast. He states his family doctor is aware of this and has ordered him an outpatient ultrasound to check for potential breast mass/cancer but he did not have it performed yet. He states that he is unsure if he would need to be admitted because of the small amount of alcohol he has been drinking and his history of cirrhosis or if the ultrasound can be done at this time in the ER so he presents for evaluation [facility] Medical History Alcohol use disorder Ascites Cirrhosis Home Medications ???Medication ???Instructions ???Recorded ???Last Taken ???Type oxycodone-acetaminophen 5 mg-325 1 tab PO Q6H PRN pain 3 days #12 11/23/23 Unknown Rx mg tablet (Percocet) tabs carvedilol 6.25 mg tablet 6.25 mg PO BID #60 tabs 01/22/24 Unknown Rx hydroxyzine pamoate 25 mg capsule 50 mg (2 x 25 mg) PO Q4H PRN PRN 01/22/24 Unknown Rx mild anxiety #30 caps midodrine 5 mg tablet 5 mg PO TIDCM #90 tabs 01/22/24 Unknown Rx pantoprazole 40 mg tablet,delayed 40 mg PO BID #60 tabs 01/22/24 Unknown Rx release spironolactone 50 mg tablet 50 mg PO DAILY #30 tabs 01/22/24 Unknown Rx cephalexin 500 mg capsule 500 mg PO Q6 #40 CAPSULES 02/01/24 Unknown Rx bupropion HCl 150 mg 24 hr tablet, 150 mg PO QAM 03/21/24 Unknown History extended release (Wellbutrin XL) naltrexone 50 mg tablet 50 mg PO DAILY 14 days #14 tabs 03/25/24 Unknown Rx Allergy/AdvReac Type Severity Reaction Status Date / Time No Known Allergies Allergy Verified 03/25/24 04:46 Family History Father Hypertension Alcoholism Drug addiction Mother Breast cancer Lung cancer Surgical History History of herniorrhaphy Social History Smoking Status: Current every day smoker tobacco type: cigarettes alcohol intake: current alcohol intake frequency: 3 or more drinks per day Alcohol type: beer substance use type: marijuana ROS ROS ED Constitutional Constitutional ED: Denies chills or fever(s) ENT ENT ED: Denies sore throat Cardiovascular Cardiovascular: Denies chest pain Respiratory/Chest Respiratory/Chest: Denies cough or dyspnea Gastrointestinal Gastrointestinal: Denies abdominal pain, diarrhea, nausea or vomiting Genitourinary Genitourinary ED: Denies dysuria Musculoskeletal Musculoskeletal: Denies myalgias Integumentary Reports other Details: Positive breast lump Neurologic Neurologic: Denies headache(s) Psychiatric Psychiatric: Denies suicidal ideation or suicidal thoughts Hematologic/Lymphatic Hematologic/Lymphatic: Denies easy bleeding or easy bruising EXAM Physical Exam Const Vital Signs: 03/25/24 04:46 03/25/24 04:49 03/25/24 05:38 Temperature 98.5 F 98.5 F Temperature Source Oral Pulse Rate 96 87 Respiratory Rate 18 16 Respiratory Effort Normal Respiratory Pattern Normal Blood Pressure 128/75 H 116/71 Blood Pressure Mean 92 86 Pulse Ox 98 99 Oxygen Delivery Method Room Air Positive well nourished and well developed General Appearance ED: well developed HEENT HEENT Narrative: Normocephalic atraumatic Eyes PERRL and EOMs intact bilaterally General Eye ED: Negative for scleral icterus Neck supple and no JVD Resp normal respiratory effort and clear to auscultation bilaterally Cardio regular rate and regular rhythm GI normal to inspection, nondistended, normoactive bowel sounds, non-tender, non-distended and no masses GI Narrative: No obvious fluid wave/ascites noted Auscultation: normoactive bowel sounds Palpation: soft Extremity normal to inspection Extremity Narrative: No pitting edema noted Neuro oriented x3, CN's II-XII intact bilaterally and no sensory deficits noted Sensorium / Orientation: alert Motor Exam: strength 5/5 throughout (more content not included)... Normal [facility] Bilirubin directOrdered By: Lizzie Samayoa on 03-09-2024 Bilirubin.direct [Mass/Vol] 0.22 mg/dL 0.00-0.30 [facility] Bilirubin, totalOrdered By: Lizzie Samayoa on 03-09-2024 Bilirubin [Mass/Vol] 0.50 mg/dL 0.20-1.00 [facility] Comment on above: For patients on eltr ombopag therapy, use of Dimension [place] TBIL is not recommended. Laboratory - Chemistry and C hemistry - challengeOrdered By: Lizzie Samayoa on 03-09-2024 AST [Catalytic activity/Vol] 34 U/L 15-37 [facility] Liver Profileon 03-09-2024 Albumin [Mass/Vol] 3.4 g/dL Normal 3.2-5.0 [facility] Comment on above: Performed By: #### L [id number] #### [facility] [address] [place], [address] ALK P 146 U/L High 45-117 [facility] Comment on above: Performed By: #### L [id number] #### [facility] [address] [place], [address] ALT [Catalytic activity/Vol] 34 U/L Normal 16-61 [facility] Comment on above: Performed By: #### L [id number] #### [facility] [address] [place], [address] AST [Catalytic activity/Vol] 34 U/L Normal 15-37 [facility] Comment on above: Performed By: #### L [id number] #### [facility] [address] [place], [address] Bilirubin [Mass/Vol] 0.50 mg/dL Normal 0.20-1.00 [facility] Comment on above: Result Comment: For patients on eltrombopag therapy, use of Dimension [place] TBIL is not recommended. Performed By: #### L [id number] #### [facility] [address] [place], [address] Bilirubin.direct [Mass/Vol] 0.22 mg/dL Normal 0.00-0.30 [facility] Comment on above: Performed By: #### L [id number] #### [facility] [address] [place], [address] Globulin (S) [Mass/Vol] 4.7 g/dL High 2.2-4.2 [facility] Comment on above: Performed By: #### L [id number] #### [facility] [address] [place], [address] T PROT 8.1 g/dL Normal 6.4-8.2 [facility] Comment on above: Performed By: #### L [id number] #### [facility] [address] [place], [address] Serum globulin measurementOr dered By: Lizzie Samayoa on 03-09-2024 Globulin (S) [Mass/Vol] 4.7 g/dL High 2.2-4.2 [facility] Serum or plasma alanine lopez otransferase (ALT) measurementOrdered By: Lizzie Samayoa on 03-09-2024 ALT [Catalytic activity/Vol] 34 U/L 16-61 [facility] Serum or plasma albumin candelaria urement (mass/volume)Ordered By: Lizzie Samayoa on 03-09-2024 Albumin [Mass/Vol] 3.4 g/dL 3.2-5.0 [facility] Serum or plasma alkaline ankit sphatase measurementOrdered By: Lizzie Samayoa on 03-09-2024 ALP [Catalytic activity/Vol] 146 U/L High 45-117 [facility] Total proteinOrdered By: Marian Samayoa on 03-09-2024 Protein [Mass/Vol] 8.1 g/dL 6.4-8.2 [facility] Emergency Department Summary on 02-01-2024 Emergency Department Summary [facility] Medical Records Department [address] [place] [address] Emergency Department Summary 02/01/24 MR#: [id number] Acct: [id number] Name: JORGE HERNANDEZ Rep #: [id number] : 1995 28 From: Oscar Garcia DO PCP: Lizzie Samayoa DO Status:REG ER Location: ED HPI History of Present Illness Chief Complaint: Nosebleed Informant: patient Onset/Context/Timing Onset: Today Context: Sudden Onset Timing: Lasts (45 minutes) Quality: Dark bleeding Location: Left nares Worsened by: Nothing Relieved by: Nothing Narrative Narrative: Patient presents with epistaxis that began tonight. Patient states he began approximately 45 minutes prior to arrival. Patient states that he has bleeding stopped shortly after arriving to the emergency department. Patient states he was having some bleeding going on the back of his throat. Patient states nothing makes it better and nothing makes it worse. Patient states the bleeding is mainly coming out of the left nares. Patient states he was recently diagnosed with cirrhosis and had a paracentesis performed. Patient denies any abdominal pain. Patient denies any nausea or vomiting. Patient also states he has an abscess in his submental area. Patient denies any discharge or drainage. Patient denies any fevers or chills. [facility] Medical History (Updated 02/01/24 @ 23:[address] Oscar Garcia, DO) Alcohol use disorder Ascites Cirrhosis Home Medications ???Medication ???Instructions ???Recorded ???Last Taken ???Type oxycodone-acetaminophen 5 mg-325 1 tab PO Q6H PRN pain 3 days #12 11/23/23 Unknown Rx mg tablet (Percocet) tabs carvedilol 6.25 mg tablet 6.25 mg PO BID #60 tabs 01/22/24 Unknown Rx hydroxyzine pamoate 25 mg capsule 50 mg (2 x 25 mg) PO Q4H PRN PRN 01/22/24 Unknown Rx mild anxiety #30 caps midodrine 5 mg tablet 5 mg PO TIDCM #90 tabs 01/22/24 Unknown Rx pantoprazole 40 mg tablet,delayed 40 mg PO BID #60 tabs 01/22/24 Unknown Rx release spironolactone 50 mg tablet 50 mg PO DAILY #30 tabs 01/22/24 Unknown Rx cephalexin 500 mg capsule 500 mg PO Q6 #40 CAPSULES 02/01/24 Unknown Rx Allergy/AdvReac Type Severity Reaction Status Date / Time No Known Allergies Allergy Verified 02/01/24 22:23 Surgical History History of herniorrhaphy Social History Smoking Status: Current every day smoker tobacco type: cigarettes alcohol intake: current alcohol intake frequency: 3 or more drinks per day Alcohol type: beer substance use type: marijuana ROS ROS ED Constitutional Constitutional ED: Denies chills or fever(s) Eyes Eyes: Denies blurry vision or change in vision ENT ENT ED: Denies rhinorrhea or sore throat Cardiovascular Cardiovascular: Denies chest pain or palpitations Respiratory/Chest Respiratory/Chest: Denies cough or dyspnea Gastrointestinal Gastrointestinal: Denies nausea or vomiting Genitourinary Genitourinary ED: Denies dysuria or hematuria Musculoskeletal Musculoskeletal: Denies back pain or neck pain Integumentary Reports abscess; Denies rash Neurologic Neurologic: Reports headache(s); Denies weakness Allergic/Immunologic Allergic/Immunologic ED: Denies mouth swelling or urticaria EXAM Physical Exam Const Vital Signs: 02/01/24 22:21 Temperature 98.2 F Temperature Source Temporal Pulse Rate 81 Respiratory Rate 16 Blood Pressure 133/83 H Blood Pressure Mean 99 Pulse Ox 100 Oxygen Delivery Method Room Air Positive well nourished and well developed General Appearance ED: well developed and NAD HEENT Reports moist mucous membranes HEENT Narrative: Nasal mucosa is pink and moist. There is no active bleeding noted. There is no septal deviation or septal hematoma. There is no postpharyngeal bleeding. There is a tender fluctuant area over the left submental area. There is no active discharge or drainage. There are some mild erythema. Oropharynx is clear. Airway is patent. Neck supple and no JVD Resp normal respiratory effort and clear to auscultation bilaterally Cardio regular rate and regular rhythm GI non-tender GI Narrative: There is ascites and mild distention over the abdomen. There is no tenderness. Palpation: soft Extremity normal to inspection Neuro oriented x3, CN's II-XII intact bilaterally and no sensory deficits noted Sensorium / Orientation: alert Motor Exam: strength 5/5 throughout Psych mental status grossly normal MDM MDM MDM Narrative Medical decision making narrative: Since there is no active bleeding, I do not feel that there is any indication for nasal packing. I advised the patient that the submental abscess could be opened and drained. Patient is a (more content not included)... Normal [facility] Discharge Instructionon 11 Discharge Instruction [facility] Medical Records Department [address] [place] [address] Instructions for Home/Discharge Instructions 01/22/24 1546 MR#: [id number] Acct: [id number] Name: JORGE HERNANDEZ Rep #: [id number] : 1995 28 From: Devonte Petit DO PCP: Lizzie Samayoa DO Status:ADM IN Discharge Instructions Diet Discharge Diet: No restrictions Activity Discharge Activity: Return to Normal Activity Weight Bearing Status: Full weight bearing Follow Up Care Test Results: Test results from this visit will be discussed in further detail at your follow-up appointment, if applicable. Discharge Plan Admission Admit Date/Time: 01/20/24 09:50 Primary Reason for Your Visit: Ascites, substance abuse disorder-alcohol Attending Provider: Devonte Petit Primary Care Provider: Lizzie Samayoa Discharge Orders/Prescriptions Prescriptions: New carvedilol 6.25 mg Tablet 6.25 mg PO BID Qty: 60 0RF midodrine 5 mg Tablet 5 mg PO TIDCM Qty: 90 0RF pantoprazole 40 mg Tablet,Delayed Release (Dr/Ec) 40 mg PO BID Qty: 60 0RF spironolactone 50 mg Tablet 50 mg PO DAILY Qty: 30 0RF hydroxyzine pamoate 25 mg Capsule 50 mg PO Q4H PRN PRN (Reason: mild anxiety) Qty: 30 0RF Discontinued omeprazole 20 mg capsule,delayed release(DR/EC) 40 mg PO DAILY PRN (Reason: stomach) ibuprofen 600 mg tablet 600 mg PO 4X/DAY PRN (Reason: pain) Qty: 40 0RF No Action oxycodone-acetaminophen [Percocet] 5-325 mg tablet 1 tab PO Q6H PRN (Reason: pain) 3 Days Qty: 12 0RF Referrals / Follow Up: Lizzie Samayoa DO [Primary Care Provider] - Within 2 Weeks Disposition Disposition (needs filled in before D/C Order can be placed): Home, Self Care 01/22/24 1550 Devonte Marisabel PARKER CC: Lizzie Samayoa DO Signed Normal [facility] AFP, Tumor Markeron 01-21-20 AFP TUMOR DEVONTE 4.3 ng/mL Normal 0.0-5.7 [facility] Comment on above: Result Comment: [facility] Electrochemiluminescence Immunoassay (ECLIA) Values obtained with different assay methods or kits cannot be used interchangeably. Results cannot be interpreted as absolute evidence of the presence or absence of malignant disease. This test is not interpretable in females. Performed at: [facility] [id number] Yard Goods Salesperson: Sanju Clifton PhD, Phone: [phone] Performed By: #### L [id number] #### [facility] [place], [address] Body Fluid Cell Count+Diffon 01-21-2024 PATH COMM/BF Reviewed Normal [facility] Comment on above: Result Comment: Nega tive for malignant cells. PLEASE ALSO REFER TO CYTOLOGY REPORT [id number] Jairo Ramsey M.D. 01/21/24 AMENDED REPORT 01/21/24 1450 PATH COMM/BF previously reported as: May follow Performed By: #### L 200.0200 #### [facility] [address] [place], [address] CBC W/Diff, Automatedon 10-3 -2023 Absolute Lymph 1.21 X10 3/uL Normal 0.83-4.51 [facility] Comment on above: Performed By: #### L 400.0001 #### [facility] [address] [place], [address] Absolute Neut 3.3 X10 3/uL Normal 2.0-7.7 [facility] Comment on above: Performed By: #### L 400.0001 #### [facility] [address] [place], [address] Basophils/100 WBC (Bld) 1.0 % Normal 0-1 [facility] Comment on above: Performed By: #### L 400.0001 #### [facility] [address] [place], [address] Eosinophils/100 WBC (Bld) 1.5 % Normal 0-5 [facility] Comment on above: Performed By: #### L 400.0001 #### [facility] [address] [place], [address] Erythrocyte distribution width (RBC) [Ratio] 18.6 % High 11.6-14.6 [facility] Comment on above: Performed By: #### L 400.0001 #### [facility] [address] [place], [address] Hematocrit (Bld) [Volume fraction] 26.4 % Low 40-54 [facility] Comment on above: Performed By: #### L 400.0001 #### [facility] [address] [place], [address] Hemoglobin (Bld) [Mass/Vol] 9.6 g/dL Low 13.0-16.5 [facility] Comment on above: Performed By: #### L 400.0001 #### [facility] [address] [place], [address] IG% 0.800 Normal 0.0-0.9 [facility] Comment on above: Result Comment: IG% - Immature Granulocytes (promyelocytes, myelocytes and metamyelocytes) > 1% indicates that a LEFT SHIFT is Present. Performed By: #### L 400.0001 #### [facility] [address] [place], [address] Lymphocytes/100 WBC (Bld) 23.4 % Normal 19-41 [facility] Comment on above: Performed By: #### L 400.0001 #### [facility] [address] [place], [address] MCH (RBC) [Entitic mass] 34.3 pg High 27.0-32.0 [facility] Comment on above: Performed By: #### L 400.0001 #### [facility] [address] [place], [address] MCHC (RBC) [Mass/Vol] 36.4 g/dL High 32-36 [facility] Comment on above: Performed By: #### L 400.0001 #### [facility] [address] [place], [address] MCV (RBC) [Entitic vol] 94.3 fL High 80-94 [facility] Comment on above: Performed By: #### L 400.0001 #### [facility] [address] [place], [address] Monocytes/100 WBC (Bld) 8.9 % Normal 0-10 [facility] Comment on above: Performed By: #### L 400.0001 #### [facility] [address] [place], [address] Neutrophils/100 WBC (Bld) 64.4 % Normal 47-70 [facility] Comment on above: Performed By: #### L 400.0001 #### [facility] [address] [place], [address] Nucleated RBC (Bld) [#/Vol] 0 10*3/uL Normal 0-5 [facility] Comment on above: Performed By: #### L 400.0001 #### [facility] [address] [place], [address] Platelet mean volume (Bld) [Entitic vol] 10.7 fL Normal 6.2-12.0 [facility] Comment on above: Performed By: #### L 400.0001 #### [facility] [address] [place], [address] Platelets (Bld) [#/Vol] 119 10*3/uL Low 150-450 [facility] Comment on above: Performed By: #### L 400.0001 #### [facility] [address] [place], [address] RBC (Bld) [#/Vol] 2.80 10*6/uL Low 4.6-6.2 [facility] Comment on above: Performed By: #### L 400.0001 #### [facility] [address] [place], [address] RDW SD 63.8 fl High 35.1-43.9 [facility] Comment on above: Performed By: #### L 400.0001 #### [facility] [address] [place], [address] WBC (Bld) [#/Vol] 5.2 10*3/uL Normal 4.4-11.0 [facility] Comment on above: Performed By: #### L 400.0001 #### [facility] [address] [place], [address] Comprehensive Metabolic Prof ilon 2024 Albumin [Mass/Vol] 2.0 g/dL Low 3.2-5.0 [facility] Comment on above: Performed By: #### L 400.0001 #### [facility] [address] [place], [address] Albumin/Globulin [Mass ratio] 0.4 {ratio} Low 0.9-2.4 [facility] Comment on above: Performed By: #### L 400.0001 #### [facility] [address] [place], [address] ALK P 241 U/L High 45-117 [facility] Comment on above: Performed By: #### L 400.0001 #### [facility] [address] [place], [address] ALT [Catalytic activity/Vol] 79 U/L High 16-61 [facility] Comment on above: Performed By: #### L 400.0001 #### [facility] [address] [place], [address] AST [Catalytic activity/Vol] 189 U/L High 15-37 [facility] Comment on above: Performed By: #### L 400.0001 #### [facility] [address] [place], [address] Bilirubin [Mass/Vol] 3.40 mg/dL High 0.20-1.00 [facility] Comment on above: Result Comment: For patients on eltrombopag therapy, use of Dimension [place] TBIL is not recommended. Performed By: #### L 400.0001 #### [facility] [address] [place], [address] BUN/CRE 4.6 RATIO Low 10-20 [facility] Comment on above: Performed By: #### L 400.0001 #### [facility] [address] [place], [address] CA,Total 8.2 mg/dL Low 8.5-10.1 [facility] Comment on above: Performed By: #### L 400.0001 #### [facility] [address] [place], [address] Chloride [Moles/Vol] 102 mmol/L Normal 98-107 [facility] Comment on above: Performed By: #### L 400.0001 #### [facility] [address] [place], [address] CO2 [Moles/Vol] 21.0 mmol/L Normal 21.0-32.0 [facility] Comment on above: Performed By: #### L 400.0001 #### [facility] [address] [place], [address] Creatinine [Mass/Vol] 0.87 mg/dL Normal 0.70-1.30 [facility] Comment on above: Result Comment: The validity of the calculated GFR GFRAA in patients over 70 years has not been determined. Clinical correlation is essential. Performed By: #### L 400.0001 #### [facility] [address] [place], [address] ECRCL 119.24 ml/min Normal [facility] Comment on above: Performed By: #### L 400.0001 #### [facility] [address] [place], [address] EST GFR - AA 136 mL/min Normal >60 [facility] Comment on above: Result Comment: Afri can [place] GFR Calc Performed By: #### L 400.0001 #### [facility] [address] [place], [address] GAP 10 Normal 5-15 [facility] Comment on above: Performed By: #### L 400.0001 #### [facility] [address] [place], [address] GFR/1.73 sq M.predicted among non-blacks MDRD (S/P/Bld) [Vol rate/Area] 112 mL/min/{1.73_m2} Normal >60 [facility] Comment on above: Result Comment: Non- GFR Calc Performed By: #### L 400.0001 #### [facility] [address] [place], [address] Globulin (S) [Mass/Vol] 4.7 g/dL High 2.2-4.2 [facility] Comment on above: Performed By: #### L 400.0001 #### [facility] [address] [place], [address] Glucose [Mass/Vol] 70 mg/dL Low 74-106 [facility] Comment on above: Performed By: #### L 400.0001 #### [facility] [address] [place], [address] Potassium [Moles/Vol] 4.2 mmol/L Normal 3.5-5.1 [facility] Comment on above: Performed By: #### L 400.0001 #### [facility] [address] [place], [address] Sodium [Moles/Vol] 133 mmol/L Low 136-145 [facility] Comment on above: Performed By: #### L 400.0001 #### [facility] [address] [place], [address] T PROT 6.7 g/dL Normal 6.4-8.2 [facility] Comment on above: Performed By: #### L 400.0001 #### [facility] [address] [place], [address] Urea nitrogen [Mass/Vol] 4 mg/dL Low 7-18 [facility] Comment on above: Performed By: #### L 400.0001 #### [facility] [address] [place], [address] /Owen 01-21-2024 /DC Delgado [facility] Medical Records Department [address] [place] [address] Progress Note - GI 01/21/24 1700 MR#: [id number] Acct: [id number] Name: JORGE HERNANDEZ Rep #: [id number] : 1995 28 From: Perry Friend DO PCP: Lizzie Samayoa DO Status:ADM IN Location: MS3 [id number] Subjective Subjective Patient said that he feels okay with staying another day. He is shaking but not examining any other signs of delirium tremens at this time. He is tolerating a diet. His weight is about the same. He is negative about 500 mL. He does not feel dizzy or weak. Objective Data Objective Data Vital Signs: Vital Signs Temp Pulse Resp BP Pulse Ox O2 Del Method 98.7 F 73 18 107/70 100 Room Air 01/21/24 14:25 01/21/24 14:25 01/21/24 14:25 01/21/24 14:25 01/21/24 14:25 01/21/24 14:25 Oxygen Delivery Method Room Air Weight: 147 lb 12.802 oz Body Mass Index (BMI) 23.1 Intake Output: Intake and Output for Last 24 Hours 01/19/24 01/20/24 01/21/24 23:59 23:59 23:59 Intake Total 700 / 700 Output Total 2500 / 2500 Balance -1800 / -1800 Lab / Micro Data 01/21/24 06:45 01/21/24 06:45 Labs: Laboratory Results - last 24 hr 01/20/24 07:14: Tumor Marker AFP 4.3 01/20/24 : Fluid Source PARACENTESIS, Fluid Color YELLOW, Fluid Appearance CLEAR, Fluid RBC 57, Fluid Lymphocytes 9, Fluid Monocytes 7, Fluid Macrophages 37, Fld Mesothelial Cells 47, Fl Pathologist Comment Reviewed, Fluid Comment 2 SEE COMMENT 01/21/24 06:45: WBC 5.2, RBC 2.80 L, Hgb 9.6 L, Hct 26.4 L, MCV 94.3 H, MCH 34.3 H, MCHC 36.4 H, RDW Std Deviation 63.8 H, RDW Coeff of Man 18.6 H, Plt Count 119 L, MPV 10.7, Immature Gran % (Auto) 0.800, Neut % (Auto) 64.4, Lymph % (Auto) 23.4, [place] % (Auto) 8.9, Eos % (Auto) 1.5, Baso % (Auto) 1.0, Absolute Neuts (auto) 3.3, Absolute Lymphs (auto) 1.21, Nucleated RBC % 0, Sodium 133 L, Potassium 4.2, Chloride 102, Carbon Dioxide 21.0, Anion Gap 10, BUN 4 L, Creatinine 0.87, Estim Creat Clear Calc 119.24, Est GFR (MDRD) Af Amer 136, Est GFR (MDRD) Non-Af 112, BUN/Creatinine Ratio 4.6 L, Glucose 70 L, Calcium 8.2 L, Total Bilirubin 3.40 H, AST 189 H, ALT 79 H, Alkaline Phosphatase 241 H, Total Protein 6.7, Albumin 2.0 L, Globulin 4.7 H, Albumin/Globulin Ratio 0.4 L Physical Exam Const alert, oriented x3, no apparent distress, healthy appearing and well nourished General Appearance: cooperative, comfortable, well kempt and well developed Orientation / Consciousness: awake and oriented to person HEENT Head and Scalp: normocephalic and atraumatic Face and Sinus: normal facial exam Mouth: oral and palatal mucosa normal Eyes General Eye: normal appearance of both eyes Neck full ROM Lymph Lymphatic: no lymphadenopathy noted Chest inspection of chest normal Resp normal respiratory effort and no use of accessory muscles Cardio regular rate and regular rhythm GI normal to inspection, nondistended, normoactive bowel sounds, soft to palpation, non-tender, non- distended and no masses Auscultation: normoactive bowel sounds Palpation: soft Percussion: normal to percussion Rectal Exam: visual inspection normal and normal sphincter tone no CVA tenderness Back/Spine no CVA tenderness and normal ROM Extremity normal to inspection Peripheral Pulses: Yes pulses 2+ throughout Skin no rashes or lesions noted General Skin Exam: no breakdown, elasticity normal and turgor normal Neuro oriented x3 Motor Exam: strength 5/5 throughout Psych mental status grossly normal Appearance: grossly normal Attitude: calm Activity / Motor Behavior: appropriate eye contact Speech: normal speech Thought Process: normal thought process Thought Content: normal thought content Attention / Concentration: attention grossly intact Memory / Cognition: memory grossly intact Insight: insight good Judgement: judgement good Assessment Plan Assessment/Plan (1) Ascites: (2) Acute alcoholic hepatitis: (3) Cirrhosis: PLAN: 28-year-old presented with 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 He had less than 5 L so he did not get prophylaxis with albumin. He was here for vomiting in the beginning of the month and was diagnosed with alcoholic gastritis. There is a strong possibility that he has varices in the upper GI tract. And had an upper GI bleed on presentation to the emergency department earlier in the month without superimposed ischemic hepatopathy. He should have an ammonia checked along with an alpha-fetoprotein, acute hepatitis profile, HIV, QuantiFERON gold, IBD SGI, celiac disease, labs for chronic viral hepatitis. I will start him on midodrine 5 mg p.o. 3 times daily, nadolol 10 mg twice daily, Lasix 20 mg twice daily, Aldactone 25 mg twice daily. 01/21/2024. Pat (more content not included)... Normal [facility] Abdomen/Pelvis W IV Cont ONL Yon 01-20-2024 Abdomen/Pelvis W IV Cont ONLY [facility] Imaging Services [address] [place], [place] [address] Abdomen/Pelvis W IV Cont ONLY MR#: [id number] Acct: [id number] Name: JORGE HERNANDEZ Rep #: [id number] : 1995 M 28 From: Bobo samuels MD PCP: Lizzie Samayoa DO Status: REG ER Study: Abdomen/Pelvis W IV Cont ONLY Date of Exam: Exam# [id number] Ordering Dr: Kirby Bowden DO [id number] STUDY: CT ABDOMEN AND PELVIS WITH CONTRAST REASON FOR EXAM: Male, 28 years old. Abdominal pain and distension RADIATION DOSAGE (If Supplied By Facility): CTDIvol = ( 10.97 ) mGy, DLP = ( 478.29 ) mGycm TECHNIQUE: Transaxial images were obtained from the dome of the diaphragm to the symphysis pubis without oral contrast. IV 100mL Isovue-370 was administered. Sagittal and coronal images were reconstructed. Individualized dose optimization techniques were used for this CT. COMPARISON: None. FINDINGS: Diffuse ascites. Minimal degree of left basilar atelectasis. The visualized portions of the heart are within normal limits. Normal liver. Minimally thickened gallbladder wall most likely secondary to the fluid in the pericholecystic space. Normal spleen. Normal pancreas. Normal bilateral adrenal glands. Normal right kidney. Normal left kidney. There is a small hiatal hernia. Normal small intestine. Abnormal haustral pattern of the rectosigmoid colon suggestive of possible colitis. The appendix is visualized and appears normal. Normal abdominal aorta. Normal inferior vena cava. Normal retroperitoneum. Normal urinary bladder. Normal abdominal wall. Normal osseous structures. CT/Abdomen/Pelvis W IV Cont ONLY IMPRESSION: Diffuse ascites. Mild degree of left basilar atelectasis. Altered haustral pattern in the rectosigmoid colon suggestive of possible colitis. Electronically Signed: Bobo Ayers MD at 8:49 EDT Reading Location ID and State: [address] [place] [address] , Service support , CC: Dr. Kirby Bowden DO; Lizzie Samayoa DO [employer] Pipe Layer: Signed Normal [facility] Alcohol, Blood (Medical)-Ser umon 01-20-2024 SERUM ETOH 295.0 mg/dL Normal [facility] Comment on above: Result Comment: The serum:whole blood ethanol ratio is approximately 1.14 and varies slightly with hematocrit. Medical Alcohol reference interval and critical value in non-tolerant individuals; 50 - 100 Impairment 100 Intoxication 100 - 250 Severe Poisoning 250 - 400 Deep/possible fatal coma Performed By: #### L 400.0001 #### [facility] [place], [address] Basic Metabolic Profile (BMP )on 01-20-2024 BUN/CRE 2.9 RATIO Low 10-20 [facility] Comment on above: Performed By: #### L 500.3400, L100.0100, L501.9100, L501.2450, L300.3900, L500.2500, L300.4310 #### [facility] [address] [place], [address] CA,Total 8.3 mg/dL Low 8.5-10.1 [facility] Comment on above: Performed By: #### L 500.3400, L100.0100, L501.9100, L501.2450, L300.3900, L500.2500, L300.4310 #### [facility] [address] [place], [address] Chloride [Moles/Vol] 104 mmol/L Normal 98-107 [facility] Comment on above: Performed By: #### L 500.3400, L100.0100, L501.9100, L501.2450, L300.3900, L500.2500, L300.4310 #### [facility] [address] [place], [address] CO2 [Moles/Vol] 20.0 mmol/L Low 21.0-32.0 [facility] Comment on above: Performed By: #### L 500.3400, L100.0100, L501.9100, L501.2450, L300.3900, L500.2500, L300.4310 #### [facility] [address] [place], [address] Creatinine [Mass/Vol] 1.04 mg/dL Normal 0.70-1.30 [facility] Comment on above: Result Comment: The validity of the calculated GFR GFRAA in patients over 70 years has not been determined. Clinical correlation is essential. Performed By: #### L 500.3400, L100.0100, L501.9100, L501.2450, L300.3900, L500.2500, L300.4310 #### [facility] [address] [place], [address] ECRCL 99.75 ml/min Normal [facility] Comment on above: Performed By: #### L 500.3400, L100.0100, L501.9100, L501.2450, L300.3900, L500.2500, L300.4310 #### [facility] [address] [place], [address] EST GFR - AA 110 mL/min Normal >60 [facility] Comment on above: Result Comment: Afri can [place] GFR Calc Performed By: #### L 500.3400, L100.0100, L501.9100, L501.2450, L300.3900, L500.2500, L300.4310 #### [facility] [address] [place], [address] GAP 12 Normal 5-15 [facility] Comment on above: Performed By: #### L 500.3400, L100.0100, L501.9100, L501.2450, L300.3900, L500.2500, L300.4310 #### [facility] [address] [place], [place], [id number] (897) GFR/1.73 sq M.predicted among non-blacks MDRD (S/P/Bld) [Vol rate/Area] 91 mL/min/{1.73_m2} Normal >60 [facility] Comment on above: Result Comment: Non- GFR Calc Performed By: #### L 500.3400, L100.0100, L501.9100, L501.2450, L300.3900, L500.2500, L300.4310 #### [facility] [address] [place], [address] Glucose [Mass/Vol] 100 mg/dL Normal 74-106 [facility] Comment on above: Result Comment: Fast ing Glucose result from 100 to 125 mg/dL suggests IMPAIRED HOMEOSTASIS per A.D.A. criteria. Performed By: #### L 500.3400, L100.0100, L501.9100, L501.2450, L300.3900, L500.2500, L300.4310 #### [facility] [address] [place], [address] Potassium [Moles/Vol] 3.5 mmol/L Normal 3.5-5.1 [facility] Comment on above: Result Comment: Slig ht Hemolysis, Result may be falsely increased. Performed By: #### L 500.3400, L100.0100, L501.9100, L501.2450, L300.3900, L500.2500, L300.4310 #### [facility] [address] [place], [address] Sodium [Moles/Vol] 136 mmol/L Normal 136-145 [facility] Comment on above: Performed By: #### L 500.3400, L100.0100, L501.9100, L501.2450, L300.3900, L500.2500, L300.4310 #### [facility] [address] [place], [address] Urea nitrogen [Mass/Vol] 3 mg/dL Low 7-18 [facility] Comment on above: Performed By: #### L 500.3400, L100.0100, L501.9100, L501.2450, L300.3900, L500.2500, L300.4310 #### [facility] [address] [place], [address] CBC W/Diff, Automatedon 10-3 0 REACTIVE LYMPH 1+ Normal [facility] Comment on above: Performed By: #### L 500.3400, L100.0100, L501.9100, L501.2450, L300.3900, L500.2500, L300.4310 #### [facility] [address] [place], [address] SMEAR COMMENT SCANNED Normal [facility] Comment on above: Performed By: #### L 500.3400, L100.0100, L501.9100, L501.2450, L300.3900, L500.2500, L300.4310 #### [facility] [address] [place], [address] Cytology, Body Fluid / CSFon 01-20-2024 CYTOLOGY,BF/CSF SEE PATHOLOGY REPORT Normal [facility] Comment on above: Order Comment: Comme nts: paracentesis Result Comment: Spec imen submitted to Anatomical Pathology Department for testing. Performed By: #### L 350.1000 #### [facility] [address] [facility] [place], [address] Emergency Department Summary on 01-20-2024 Emergency Department Summary [facility] Medical Records Department [address] [place] [address] Emergency Department Summary 01/20/24 MR#: [id number] Acct: [id number] Name: JORGE HERNANDEZ Rep #: [id number] : 1995 28 From: Kirby Bowden DO PCP: Lizzie Samayoa DO Status:ADM IN Location: [facility] [id number] HPI HPI - GI History of Present Illness Chief Complaint: Abd Pain Informant: patient Narrative Narrative: 28-year-old male presenting to the emergency room with abdominal bloating. Patient states that he had bloating over the past several weeks. Went to see his doctor yesterday who advised him to come to emergency. He came this morning. Patient states that he has been drinking alcohol since about the age of 13. He had been drinking 10-12 beers per day over the past several months 3 weeks he has only been able to drink up to a half a can of beer. He notes weight loss and that he is losing muscle mass. He notes hemorrhoids and rectal bleeding and rectal pain. He notes variable stool sometimes yellow and liquidy sometimes formed. He notes frequent vomiting with attempting to eat or drink. He states he utilizes cannabis to help with this. He denies any fevers. No IV drug use. No fevers. PFSH PFSH Home Medications ???Medication ???Instructions ???Recorded ???Last Taken ???Type ibuprofen 600 mg tablet 600 mg PO 4X/DAY PRN pain #40 tabs 11/23/23 Unknown Rx omeprazole 20 mg capsule,delayed 40 mg PO DAILY PRN stomach 11/23/23 Unknown History release oxycodone-acetaminophen 5 mg-325 1 tab PO Q6H PRN pain 3 days #12 11/23/23 Unknown Rx mg tablet (Percocet) tabs Allergy/AdvReac Type Severity Reaction Status Date / Time No Known Allergies Allergy Verified 01/20/24 06:56 Surgical History History of herniorrhaphy Social History Smoking Status: Current every day smoker tobacco type: cigarettes alcohol intake: current alcohol intake frequency: 3 or more drinks per day Alcohol type: beer substance use type: marijuana ROS ROS ED Constitutional Constitutional ED: Reports weight loss; Denies chills or fever(s) Eyes Eyes: Denies change in vision or diplopia ENT ENT ED: Denies ear pain, rhinorrhea or sore throat Cardiovascular Cardiovascular: Denies chest pain, orthopnea, palpitations or racing heartbeat Respiratory/Chest Respiratory/Chest: Denies cough, dyspnea or orthopnea Gastrointestinal Gastrointestinal: Reports constipation, diarrhea, nausea and vomiting; Denies abdominal pain Genitourinary Genitourinary ED: Reports other Details: Dark yellow adherent ; Denies dysuria, hematuria or urinary frequency Musculoskeletal Musculoskeletal: Denies arthralgias, back pain, myalgias or neck pain Integumentary Denies abscess or rash Neurologic Neurologic: Denies headache(s) or weakness Psychiatric Psychiatric: Denies anxiety, depression, suicidal ideation or suicidal thoughts Endocrine Endocrinology: Denies polydipsia, polyphagia or polyuria Allergic/Immunologic Allergic/Immunologic ED: Denies mouth swelling, tongue swelling or urticaria EXAM Physical Exam Const Vital Signs: 01/20/24 06:56 01/20/24 09:33 Temperature 98.2 F 98.3 F Temperature Source Oral Oral Pulse Rate 91 75 Respiratory Rate 18 20 H Blood Pressure 119/76 100/56 L Blood Pressure Mean 90 70 Pulse Ox 95 100 Oxygen Delivery Method Room Air Room Air Positive well nourished and well developed General Appearance ED: well developed and NAD HEENT Reports normocephalic, head/scalp atraumatic and moist mucous membranes Eyes PERRL and EOMs intact bilaterally General Eye ED: Yes scleral icterus Neck no lymphadenopathy, supple and no JVD Resp normal respiratory effort and clear to auscultation bilaterally Cardio regular rate, regular rhythm and no murmurs GI GI Narrative: Positive ascites Inspection: abdominal distention Auscultation: normoactive bowel sounds Palpation: soft Back/Spine no CVA tenderness and normal ROM Extremity normal to inspection General Extremety ED: Negative for edema General Extremity: Negative for edema Neuro oriented x3 and CN's II-XII intact bilaterally Sensorium / Orientation: alert Motor Exam: strength 5/5 throughout Psych mental status grossly normal Mood Affect: Negative for depressed or tearful Skin no rashes or lesions noted and no wounds MDM MDM MDM Narrative Medical decision making narrative: Differential diagnosis includes acute liver failure/hepatitis alcohol use disorder electrolyte abnormalities hyperbilirubinemia anemia dehydration anemia pancreatitis malignancy Patient's white count 8.7 hemoglobin is 11 with an MCV of 95.3 platelet count is 170. Sodium is 136 CO2 is 20 an (more content not included)... Normal [facility] Glucose, Body Fluidon 2023 GLU,BF 86 mg/dL High 40-70 [facility] Comment on above: Performed By: #### L 3300.0700 #### [facility] [address] [place], [place], [address] H AND P Exam - Hospitaliston 01-20-2024 H&P Exam - Hospitalist [facility] Medical Records Department [address] [facility] [place] [address] H P Exam - Hospitalist 01/20/24 1517 MR#: [id number] Acct: [id number] Name: JORGE HERNNADEZ Rep #: [id number] : 1995 28 From: Devonte Petit DO PCP: Lizzie Samayoa DO Status:ADM IN Location: [facility] [id number] HPI - General General Date of Admission: 01/20/24 Date of Service: 01/20/24 Chief Complaint: Abdominal distention HPI Narrative JORGE HERNANDEZ, is a 28 M who presents to the emergency room at [facility] after being instructed to come in for evaluation of a distended abdomen. This has been going on for several weeks according to the patient, he saw his physician yesterday was instructed to come to the ER yesterday for evaluation but did not show up until today. Patient is a daily drinker and has been drinking since he was 13 years old according to the patient-patient drinks anywhere from 10-12 beers per day. Lab work obtained in the emergency room was abnormal for an AST of 236, ALT of 101, alkaline phosphatase of 287, and a bilirubin of 3.8. CBC was remarkable for hemoglobin of 11 but otherwise was unremarkable. Patient underwent a CT of the abdomen pelvis which showed diffuse ascites with a mild degree of left basilar atelectasis and possible colitis area in the rectosigmoid colon. Patient has no complaints of any diarrhea or blood in his stool, he has no complaints of any lower abdominal pain. Patient will be admitted to [place] [address], he will undergo a paracentesis, he will be seen in consultation by gastroenterology. Patient states he wishes to quit drinking, his last drink was this morning and his blood alcohol level was elevated at 295. I will enroll the patient in the RAMP program while he is here. [facility] Home Medications ???Medication ???Instructions ???Recorded ???Last Taken ???Type ibuprofen 600 mg tablet 600 mg PO 4X/DAY PRN pain #40 tabs 11/23/23 Unknown Rx omeprazole 20 mg capsule,delayed 40 mg PO DAILY PRN stomach 11/23/23 Unknown History release oxycodone-acetaminophen 5 mg-325 1 tab PO Q6H PRN pain 3 days #12 11/23/23 Unknown Rx mg tablet (Percocet) tabs Allergy/AdvReac Type Severity Reaction Status Date / Time No Known Allergies Allergy Verified 01/20/24 06:56 Surgical History History of herniorrhaphy Social History Smoking Status: Current every day smoker tobacco type: cigarettes alcohol intake: current alcohol intake frequency: 3 or more drinks per day Alcohol type: beer substance use type: marijuana ROS Constitutional Constitutional: Denies anorexia, change in weight, fever(s), night sweats or weakness Eyes Eyes: Denies blurry vision, change in vision, discharge from eye(s) or eye pain Cardiovascular Cardiovascular: Denies chest pain, claudication, dyspnea on exertion, edema or palpitations Respiratory/Chest Respiratory/Chest: Denies cough, hemoptysis, shortness of breath at rest or shortness of breath with exertion Gastrointestinal Gastrointestinal: Reports other Details: Abdominal distention times several weeks ; Denies abdominal pain, constipation, diarrhea, hematemesis, hematochezia, melena, nausea or vomiting Genitourinary Genitourinary: Denies dysuria, hematuria, urinary frequency, urinary hesitancy, urinary incontinence or urinary urgency Musculoskeletal Musculoskeletal: Denies back pain, joint pain, joint stiffness, joint swelling, myalgias or neck pain Neurologic Neurologic: Denies abnormal gait, abnormal speech, dizziness, focal weakness, headache(s), loss of vision, numbness, other visual disturbances, paresthesias, syncope or tingling Psychiatric Psychiatric: Denies anxiety, cognitive impairment, depression, irritability, mood swings or suicidal ideation Endocrine Endocrinology: Denies change in body appearance, cold intolerance, excessive sweating, heat intolerance, polydipsia or polyuria Hematologic/Lymphatic Hematologic/Lymphatic: Denies none, anemia, easy bleeding, easy bruising or lymphadenopathy Allergic/Immunologic Allergic/Immunologic: Denies rhinitis, urticaria, eczemia or asthma Vital Signs Vital Signs Vital Signs: 01/20/24 06:56 01/20/24 09:33 01/20/24 09:52 Temperature 98.2 F 98.3 F 98.2 F Temperature Source Oral Oral Pulse Rate 91 75 78 Respiratory Rate 18 20 H 16 Blood Pressure 119/76 100/56 L 121/73 H Blood Pressure Mean 90 70 89 Blood Pressure Source Blood Pressure Position Blood Pressure Location Pulse Ox 95 100 96 Oxygen Delivery Method Room Air Room Air 01/20/24 11:00 01/20/24 12:15 01/20/24 12:22 Temperature 97.3 F L Temperature Source Oral Pulse Rate 85 71 71 Respiratory Rate 16 18 Blood Pressure 110 (more content not included)... Normal [facility] 01-20-2024 LDH 383 U/L High 87-241 [facility] Comment on above: Result Comment: Slig ht Hemolysis, Result may be falsely increased. Performed By: #### L 504.2610, L001.0705 #### [facility] [address] [place], [address] LDH,Body Fluidon 01-20-2024 LDH,BF 75 Units/L Normal Not Establ. [facility] Comment on above: Performed By: #### L 3300.0700 #### [facility] [address] [place], [address] Lipaseon 01-20-2024 Lipase [Catalytic activity/Vol] 101 U/L High 13-75 [facility] Comment on above: Result Comment: Plea se note: LIPASE revised reference range effective 22. New Lipase methodology. Expected to produce lower values than the previous assay method. NEW Reference Range: 13 - 75 U/L Performed By: #### L 400.0001 #### [facility] [address] [place], [address] Liver Profileon 01-20-2024 Albumin [Mass/Vol] 2.3 g/dL Low 3.2-5.0 [facility] Comment on above: Performed By: #### L 400.0001 #### [facility] [address] [place], [address] ALK P 287 U/L High 45-117 [facility] Comment on above: Performed By: #### L 400.0001 #### [facility] [address] [place], [address] ALT [Catalytic activity/Vol] 101 U/L High 16-61 [facility] Comment on above: Performed By: #### L 400.0001 #### [facility] [address] [place], [address] AST [Catalytic activity/Vol] 236 U/L High 15-37 [facility] Comment on above: Result Comment: Slig ht Hemolysis, Result may be falsely increased. Performed By: #### L 400.0001 #### [facility] [address] [place], [address] Bilirubin [Mass/Vol] 3.80 mg/dL High 0.20-1.00 [facility] Comment on above: Result Comment: For patients on eltrombopag therapy, use of Dimension [place] TBIL is not recommended. Performed By: #### L 400.0001 #### [facility] [address] [place], [address] Bilirubin.direct [Mass/Vol] 2.60 mg/dL High 0.00-0.30 [facility] Comment on above: Performed By: #### L 400.0001 #### [facility] [address] [place], [address] Globulin (S) [Mass/Vol] 5.5 g/dL High 2.2-4.2 [facility] Comment on above: Performed By: #### L 400.0001 #### [facility] [address] [place], [address] T PROT 7.8 g/dL Normal 6.4-8.2 [facility] Comment on above: Performed By: #### L 400.0001 #### [facility] [address] [place], [address] MR/CON.PCM.GIon 01-20-2024 MR/CON.PCM.GI [facility] Medical Records Department [address] [place] [address] Consultation - GI 01/20/24 1820 MR#: [id number] Acct: [id number] Name: JORGE HERNANDEZ Rep #: [id number] : 1995 28 From: Perry Hansen DO PCP: Lizzie Samayoa DO Status:ADM IN [place] [facility] [place] [id number] HPI Consult Data Date of Consult: 01/20/24 HPI Narrative Reason for Consultation: Ascites HPI Narrative: JORGE HERNANDEZ, is a 28-year-old male presenting to the emergency room with abdominal bloating. Patient states that he had bloating over the past several weeks. He went to see his doctor yesterday who advised him to come to emergency. Patient states that he has been drinking alcohol since about the age of 13. He had been drinking 10-12 beers per day over the past several months 3 weeks he has only been able to drink up to a half a can of beer. He notes weight loss and that he is losing muscle mass. He notes hemorrhoids and rectal bleeding and rectal pain. He notes variable stool sometimes yellow and liquidy sometimes formed. He notes frequent vomiting with attempting to eat or drink. He states he utilizes cannabis to help with this. He denies any fevers. No IV drug use. No fevers. But he does admit to daily marijuana. Vitals show blood pressure 84/24, pulse 77, respiratory 18, temperature 98.8, 98% saturation on room air. Labs in the ED were consistent with alcoholic hepatitis along with a bicytopenia on his complete blood count. He was here last month for some nausea vomiting and hematemesis. He was diagnosed with alcoholic gastritis. His hemoglobin remained normal at that time. He had a CT scan of the abdomen pelvis and it displayed: Diffuse ascites. Mild degree of left basilar atelectasis. Altered haustral pattern in the rectosigmoid colon suggestive of possible colitis. Model for End Stage Liver Disease???Sodium score at that time was 24. He was admitted for further assessment.He underwent large-volume paracentesis and had 2.4 L removed from his abdomen. [facility] Home Medications ???Medication ???Instructions ???Recorded ???Last Taken ???Type ibuprofen 600 mg tablet 600 mg PO 4X/DAY PRN pain #40 tabs 11/23/23 Unknown Rx omeprazole 20 mg capsule,delayed 40 mg PO DAILY PRN stomach 11/23/23 Unknown History release oxycodone-acetaminophen 5 mg-325 1 tab PO Q6H PRN pain 3 days #12 11/23/23 Unknown Rx mg tablet (Percocet) tabs Allergy/AdvReac Type Severity Reaction Status Date / Time No Known Allergies Allergy Verified 01/20/24 06:56 Surgical History History of herniorrhaphy Social History Smoking Status: Current every day smoker tobacco type: cigarettes alcohol intake: current alcohol intake frequency: 3 or more drinks per day Alcohol type: beer substance use type: marijuana ROS Constitutional Constitutional: Denies anorexia, change in weight, fever(s), night sweats or weakness Eyes Eyes: Denies blurry vision, change in vision, discharge from eye(s) or eye pain Cardiovascular Cardiovascular: Denies chest pain, claudication, dyspnea on exertion, edema or palpitations Respiratory/Chest Respiratory/Chest: Denies cough, hemoptysis, shortness of breath at rest or shortness of breath with exertion Gastrointestinal Gastrointestinal: Reports other Details: Abdominal distention times several weeks ; Denies abdominal pain, constipation, diarrhea, hematemesis, hematochezia, melena, nausea or vomiting Genitourinary Genitourinary: Denies dysuria, hematuria, urinary frequency, urinary hesitancy, urinary incontinence or urinary urgency Musculoskeletal Musculoskeletal: Denies back pain, joint pain, joint stiffness, joint swelling, myalgias or neck pain Neurologic Neurologic: Denies abnormal gait, abnormal speech, dizziness, focal weakness, headache(s), loss of vision, numbness, other visual disturbances, paresthesias, syncope or tingling Psychiatric Psychiatric: Denies anxiety, cognitive impairment, depression, irritability, mood swings or suicidal ideation Endocrine Endocrinology: Denies change in body appearance, cold intolerance, excessive sweating, heat intolerance, polydipsia or polyuria Hematologic/Lymphatic Hematologic/Lymphatic: Denies none, anemia, easy bleeding, easy bruising or lymphadenopathy Allergic/Immunologic Allergic/Immunologic: Denies rhinitis, urticaria, eczemia or asthma Physical Exam Const alert, oriented x3, no apparent distress, healthy appearing and well nourished General Appearance: cooperative, comfortable, well kempt and well developed Orientation / Consciousness: awake and oriented to person HEENT Head and Scalp: normocephalic and atraumatic Face and Sinus: normal facial exam Mouth: oral and palatal mucosa normal Eyes G (more content not included)... [facility] Magnesium [Mass/Vol] 2.3 mg/dL Normal 1.6-2.6 [facility] Comment on above: Performed By: #### L 501.5200 #### [facility] [address] [place], [address] Paracentesis with USon 01-19 Paracentesis with US [facility] Imaging Services [address] [place] [address] Paracentesis with US MR#: [id number] Acct: [id number] Name: JORGE HERNANDEZ Rep #: [id number] : 1995 M 28 From: Bobo samuels MD PCP: Lizzie Samayoa DO Status: ADM IN Study: Paracentesis with US Date of Exam: 01/20/24 Exam# [id number] Ordering Dr: Devonte Petit DO [id number] PROCEDURE: Ultrasound guided paracentesis. DATE OF EXAMINATION: January 20, 2024.. INDICATION: Male, 28 years old. Ascites. PHYSICIAN: Bobo Ayers M.D. TECHNIQUE: The risks, benefits, and alternatives to the procedure were explained to the patient. The specific risks of bleeding, infection, and damage to bowel were detailed and accepted. Witnessed informed consent was obtained. The abdomen was ultrasonographically surveyed. An appropriate pocket of fluid was identified at the right lower quadrant. The skin were cleaned and prepped in the usual sterile fashion. Using ultrasound guidance, the peritoneal cavity was accessed with a 5-Yi paracentesis needle/catheter system. The trocar was removed. A total of 2500 ml of trice-colored fluid were removed from the peritoneal cavity. A 100 mL sample was sent to the laboratory for analysis. The catheter was removed and a sterile dressing was applied. The procedure was well tolerated. US/Paracentesis with US IMPRESSION: Ultrasound guided paracentesis. Electronically Signed: Bobo Ayers MD at 14:47 EDT , CC: Dr. Devonte Petit, DO; Lizzie Samayoa, Cast Iron Drain Pipe Layer: Signed Normal [facility] Partial Thromboplast Timeon 01-20-2024 aPTT Coag (Bld) [Time] 31.7 s Normal 24.1-36.2 [facility] Comment on above: Performed By: #### L 400.0001 #### [facility] [address] [place], [address] Protein, Body Fluidon 2023 Protein [Mass/Vol] 1.5 g/dL Normal Not Establ. [facility] Comment on above: Performed By: #### L 3300.0700 #### [facility] [address] [place], [address] Protein, Totalon 01-20-2024 Albumin/Globulin [Mass ratio] 0.4 {ratio} Low 0.9-2.4 [facility] Comment on above: Performed By: #### L 504.2610, L001.0705 #### [facility] [address] [place], [address] Globulin (S) [Mass/Vol] 5.7 g/dL High 2.2-4.2 [facility] Comment on above: Performed By: #### L 504.2610, L001.0705 #### [facility] [address] [place], [address] T PROT 8.0 g/dL Normal 6.4-8.2 [facility] Comment on above: Performed By: #### L 504.2610, L001.0705 #### [facility] [address] [place], [address] Prothrombin Time w/INRon INR Coag (PPP) [Relative time] 1.3 {INR} Normal [facility] Comment on above: Performed By: #### L 400.0001 #### [facility] [address] [place], [address] PT Coag (PPP) [Time] 16.6 s High 11.7-14.9 [facility] Comment on above: Performed By: #### L 400.0001 #### [facility] [address] [place], [address] Special Stain Group IIon Special Stain Group II Patient Age/Sex Location Account Attending Physician JORGE HERNANDEZ 28/M MS3 [id number] Dr. Devonte Petit, DO Specimen: [id number] Received: 01/21/24 Status: PARKER Suazo Num: [id number] Spec Type: Fluid Subm Dr: Dr. Devonte Petit, DO HEADER OPERATION: Ultrasound guided right paracentesis PRE-OP DIAGNOSIS: Ascites TISSUE SUBMITTED: Paracentesis fluid for cytology DIAGNOSIS CYTOLOGY Paracentesis fluid for cytology (cytospin and cellblock): Negative for malignant cells. See comment. 01/22/2024 COMMENT Clinical correlation and appropriate follow up are necessary. CYTOLOGY STUDY Slides are reviewed. CYTOLOGY GROSS Received is 100 ml of hazy-yellow fluid labeled with the patient's name and and designated per the requisition as Paracentesis fluid. Submitted for cytology preparation including cell block. 01/21/2024 TC:5 CPT: 79903,39174 Signed (signature on file) Dr. Jairo Ramsey MD 01/22/24 1152 Normal [facility] Comment on above: Performed By: #### L 3300.0700 #### [facility] [address] [place], [place], [address] Urinalysis, Completeon 01-19 WBC 0-5 SEEN Normal 0-5 [facility] Comment on above: Order Comment: COLLE CTOR TO SPECIFY Performed By: #### L 400.0001 #### [facility] [address] [place], [address] EPI,SQUAMOUS 0-5 SEEN Normal 0-5 [facility] Comment on above: Order Comment: COLLE CTOR TO SPECIFY Performed By: #### L 400.0001 #### [facility] [address] [place], [address] BACTERIA 0 SEEN Normal None Seen [facility] Comment on above: Order Comment: ROMY CTOR TO SPECIFY Performed By: #### L 400.0001 #### [facility] [address] [place], [address] Mucus Ql (Urine sed) 0 SEEN Normal [facility] Comment on above: Order Comment: ROMY CTOR TO SPECIFY Performed By: #### L 400.0001 #### [facility] [address] [place], [address] RBC 0 SEEN Normal 0-5 [facility] Comment on above: Order Comment: ROMY CTOR TO SPECIFY Performed By: #### L 400.0001 #### [facility] [address] [place], [address] Emergency Department Summary on 11-23-2023 Emergency Department Summary [facility] Medical Records Department [address] [place] [address] Emergency Department Summary 11/23/23 MR#: [id number] Acct: [id number] Name: JORGE HERNANDEZ Rep #: [id number] : 1995 28 From: Lauro Rodrigues DO PCP: Lizzie Samayoa DO Status:DEP ER Location: ED HPI History of Present Illness Chief Complaint: Other, Pain/Inj Informant: patient Narrative Narrative: Patient is a 28-year-old male who reports a history of gastritis for which he takes omeprazole. He also reports he has recently been seen for a right sided facial abscess. He states that he took the antibiotic for a few days which was clindamycin and then stopped it. He states that it has been a few weeks since he used the antibiotic. He reports that over the last 1 to 2 days he has noticed swelling and pain along the middle of his lower lip/chin. He denies any trauma fevers or chills. He states that hurts to open his mouth but he does not have any difficulty breathing or swallowing. He is concerned about potential infection and therefore comes in for evaluation [facility] Home Medications ???Medication ???Instructions ???Recorded ???Last Taken ???Type amoxicillin 875 mg-potassium 1 tab PO BID 10 days #20 tabs 11/23/23 Unknown Rx clavulanate 125 mg tablet ibuprofen 600 mg tablet 600 mg PO 4X/DAY PRN pain #40 tabs 11/23/23 Unknown Rx omeprazole 20 mg capsule,delayed 40 mg PO DAILY 11/23/23 Unknown History release oxycodone-acetaminophen 5 mg-325 1 tab PO Q6H PRN pain 3 days #12 11/23/23 Unknown Rx mg tablet (Percocet) tabs Allergy/AdvReac Type Severity Reaction Status Date / Time No Known Allergies Allergy Verified 06/13/23 00:33 Surgical History History of herniorrhaphy Social History (Updated 05/15/23 @ 18:[address] Oscar Garcia, ) Smoking Status: Current every day smoker tobacco type: cigarettes alcohol intake: current alcohol intake frequency: 3 or more drinks per day Alcohol type: beer substance use type: marijuana ROS ROS ED Constitutional Constitutional ED: Denies chills or fever(s) ENT ENT ED: Reports other Details: Positive lip/chin pain and swelling ; Denies sore throat Cardiovascular Cardiovascular: Denies chest pain Respiratory/Chest Respiratory/Chest: Denies cough or dyspnea Gastrointestinal Gastrointestinal: Denies abdominal pain, diarrhea, nausea or vomiting Genitourinary Genitourinary ED: Denies dysuria Musculoskeletal Musculoskeletal: Denies myalgias or neck pain Integumentary Reports abscess Neurologic Neurologic: Denies headache(s) Hematologic/Lymphatic Hematologic/Lymphatic: Denies easy bleeding or easy bruising Allergic/Immunologic Allergic/Immunologic ED: Denies mouth swelling, tongue swelling or urticaria EXAM Physical Exam Const Vital Signs: 11/23/23 03:21 11/23/23 03:24 11/23/23 03:25 Temperature 98.0 F 98.0 F Temperature Source Temporal Oral Pulse Rate 79 79 Respiratory Rate 20 H 20 H Respiratory Effort Normal Non-Labored Respiratory Pattern Normal Blood Pressure 141/84 H 141/84 H Blood Pressure Mean 103 103 Pulse Ox 100 100 Oxygen Delivery Method Room Air Room Air 11/23/23 03:51 Temperature 99.3 F H Temperature Source Pulse Rate 83 Respiratory Rate 16 Respiratory Effort Respiratory Pattern Blood Pressure 126/67 H Blood Pressure Mean 86 Pulse Ox 100 Oxygen Delivery Method Positive well nourished and well developed General Appearance ED: well developed HEENT HEENT Narrative: No findings of ANUG Scattered dental caries noted There is mild soft tissue swelling in the midline of the lower jaw consistent with developing dental abscess. No active drainage. No airway edema or compromise. No trismus change in voice or difficulty with secretions Eyes PERRL and EOMs intact bilaterally General Eye ED: Negative for scleral icterus Neck supple Neck Narrative: No brawny edema in the submental space to suggest Pop's angina Resp normal respiratory effort and clear to auscultation bilaterally Cardio regular rate and regular rhythm Extremity normal to inspection Neuro oriented x3, CN's II-XII intact bilaterally and no sensory deficits noted Sensorium / Orientation: alert Motor Exam: strength 5/5 throughout Psych mental status grossly normal Skin Skin Narrative: Soft tissue changes of erythema and induration that is roughly 1 x 2 cm in size to the anterior midline chin as documented above MDM MDM MDM Narrative Medical decision making narrative: Patient presented to the ER hypertensive otherwise with stable vitals. Differential diagnosis is for dental abscess versus soft tissue skin abscess versus posterior pharynx infection such (more content not included)... Normal [facility] Emergency Department Summary on 07-28-2023 Emergency Department Summary [facility] Medical Records Department [address] [place] [address] Emergency Department Summary 07/28/23 MR#: [id number] Acct: [id number] Name: JORGE HERNANDEZ Rep #: [id number] : 1995 27 From: Hira Barakat DO PCP: Care Physician,No Primary Status:PRE ER Location: ED HPI History of Present Illness Chief Complaint: Abscess PFSH PFSH Home Medications omeprazole 20 mg capsule,delayed release 20 mg PO DAILY #30 CAPSULES 05/15/23 [Rx Last Taken Unknown] clindamycin HCl 300 mg capsule (Cleocin HCl) 300 mg PO Q6H #40 CAPSULES 06/13/23 [Rx Last Taken Unknown] clindamycin HCl 300 mg capsule 300 mg PO Q8H #30 caps 07/28/23 [Rx Last Taken Unknown] Allergy/AdvReac Type Severity Reaction Status Date / Time No Known Allergies Allergy Verified 06/13/23 00:33 Surgical History History of herniorrhaphy Social History (Updated 05/15/23 @ 18:[address] Oscar Garcia, DO) Smoking Status: Current every day smoker tobacco type: cigarettes alcohol intake: current alcohol intake frequency: 3 or more drinks per day Alcohol type: beer substance use type: marijuana EXAM Physical Exam Const Vital Signs: 07/28/23 14:19 07/28/23 14:19 07/28/23 14:21 Temperature 97 F L 97 F L Temperature Source Temporal Temporal Pulse Rate 114 H 113 H 114 H Respiratory Rate 12 14 14 Blood Pressure 143/84 H 143/84 H 143/84 H Blood Pressure Mean 103 103 103 Pulse Ox 97 97 100 Oxygen Delivery Method Room Air Room Air Room Air MDM MDM MDM Narrative Medical decision making narrative: HISTORY OF PRESENT ILLNESS: 27-year-old male presents with concern for facial abscess. He states he was seen here recently for similar and had it drained however he has not taken his antibiotics. He states REVIEW OF SYSTEMS: Pertinent positives: Facial swelling Pertinent negatives: Difficulty swallowing, vomiting PHYSICAL EXAM: Nursing triage notes reviewed, Vital signs reviewed Constitutional: please see mdm HENT: MMM, large 3 x 3 cm area of fluctuance induration to the right jaw consistent with abscess. No crepitus or bullae noted. No submandibular edema. Uvula midline. Eyes: Pupils equal round and reactive to light, Extraocular muscles intact Neck: No stridor, no JVD, full neck ROM Lungs: Clear to auscultation, No wheezing or rales. No increased work of breathing, no conversational dyspnea, no accessory muscle use, no nasal flaring. No respiratory distress noted Heart: Regular rate and rhythm, No murmurs, No rubs and No gallops, 2+ distal pulses (radial, femoral, posterior tibial) in all extremities Skin: No abscess as noted above MEDICAL DECISION MAKING: Chief Complaint: Facial abscess External records reviewed: Reviewed prior procedure note detailing incision and drainage in May 2022 Factors affecting care: History of facial abscess Social determinants of health: none History obtained from others: none Consults: none MDM Narrative: Patient was initially tachycardic otherwise afebrile. Exam with evidence of abscess. No submandibular edema noted I considered the following differential diagnosis: Cellulitis, abscess, necrotizing fasciitis Performed incision and drainage as below Procedure: Incision and Drainage simple abscess noted to right jaw The procedure was performed by myself. Location: Right jaw Risks and benefits: Risks, benefits, and alternatives were discussed. Questions were sought and answered, and verbal consent provided for the procedure. Anesthesia: 1% lidocaine without epinephrine Procedure Description: Used 18-gauge needle with aspiration of 3 cc of purulent fluid The patient tolerated the procedure well without complications. Gave p.o. clindamycin for 10-day course. Gave PCP follow-up. Given strict return precautions. The patient and/or family, caregivers express understanding. The patient and/or family, caregivers agrees with the plan. Shared decision making: I will have a discussion with the patient and or visitors regarding risk/benefits of further testing or admission. They will be made aware of of the risk/benefits inherent in this decision they will be given the opportunity to voice understanding. Total critical care time today provided was at least 0 minutes. This excludes separately billable procedures. Critical care time (if documented) is secondary to the patient having high probability of clinically significant/life threatening deterioration in the patient's condition which required my urgent intervention. Impression: 1. Facial abscess 2. Tachycardia Dispo: Discharge home This note was generated with [employer]ave [employer] dictation software. It may contain incorrect words, spelling, and punctuation edgar (more content not included)... Normal [facility] Absolute lymphocyte countOrd ered By: Oscar Garcia on 05-15-2023 Lymphocytes Auto (Unsp spec) [#/Vol] 1.02 10*3/uL 0.83-4.51 [facility] Activated partial thrombopla stin time (aPTT) in platelet poor plasma by coagulation aOrdered By: Oscar Garcia on 05-15-2023 aPTT Coag (PPP) [Time] 27.1 s 24.1-36.2 [facility] Automated lymphocyte count a s percentage of total leukocytesOrdered By: Oscar Garcia on 05-15-2023 Lymphocytes/100 WBC Auto (Unsp spec) 18.7 % 19-41 [facility] Basophil percentageOrdered B y: Oscar Garcia on 05-15-2023 Basophils/100 WBC (Bld) 1.1 % 0-1 [facility] Bilirubin [Mass/Vol] 0.30 mg/dL 0.20-1.00 [facility] Comment on above: For patients on eltr ombopag therapy, use of Dimension [place] TBIL is not recommended. Chloride [Moles/Vol] 106 mmol/L 98-107 [facility] Eosinophils/100 WBC (Bld) 3.7 % 0-5 [facility] Glucose [Mass/Vol] 93 mg/dL 74-106 [facility] Hemoglobin (Bld) [Mass/Vol] 15.7 g/dL 13.0-16.5 [facility] Monocytes/100 WBC (Bld) 8.8 % 0-10 [facility] Neutrophils (Bld) [#/Vol] 3.7 10*3/uL 2.0-7.7 [facility] Neutrophils/100 WBC (Bld) 67.1 % 47-70 [facility] Potassium [Moles/Vol] 4.1 mmol/L 3.5-5.1 [facility] Protein [Mass/Vol] 8.3 g/dL 6.4-8.2 [facility] Sodium [Moles/Vol] 140 mmol/L 136-145 [facility] WBC (Bld) [#/Vol] 5.5 10*3/uL 4.4-11.0 [facility] Determination of erythrocyte mean corpuscular volume (MCV)Ordered By: Oscar Garcia on 05-15-2023 MCV (RBC) [Entitic vol] 94.2 fL 80-94 [facility] Erythrocyte distribution wid th ratioOrdered By: Oscar Garcia on 05-15-2023 Erythrocyte distribution width (RBC) [Ratio] 13.6 % 11.6-14.6 [facility] Erythrocyte distribution wid th standard deviationOrdered By: Oscar Garcia on 05-15-2023 Erythrocyte distribution width (RBC) [Entitic vol] 47.7 fL 35.1-43.9 [facility] Hematocrit Auto (Bld) [Volum e fraction]Ordered By: Oscar Garcia on 05-15-2023 Hematocrit (Bld) [Volume fraction] 45.6 % 40-54 [facility] Immature granulocytes/100 WB C Auto (Bld)Ordered By: Oscar Garcia on 05-15-2023 Immature granulocytes/100 WBC (Bld) 0.600 % 0.0-0.9 [facility] Comment on above: IG% - Immature Granu locytes (promyelocytes, myelocytes and metamyelocytes) > 1% indicates that a LEFT SHIFT is Present. Laboratory - Chemistry and C hemistry - challengeOrdered By: Oscar Garcia on 05-15-2023 Albumin/Globulin [Mass ratio] 1.0 {ratio} 0.9-2.4 [facility] ALP [Catalytic activity/Vol] 88 U/L 45-117 [facility] ALT [Catalytic activity/Vol] 109 U/L 16-61 [facility] CO2 [Moles/Vol] 26.0 mmol/L 21.0-32.0 [facility] Globulin (S) [Mass/Vol] 4.1 g/dL 2.2-4.2 [facility] Lipase [Catalytic activity/Vol] 48 U/L 13-75 [facility] Comment on above: Please note:LIPASE r evised reference range effective 22. New Lipase methodology. Expected to produce lower values than the previous assay method. NEW Reference Range: 13 - 75 U/L Urea nitrogen/Creatinine [Mass ratio] 8.1 mg/mg 10-20 [facility] - CoagulationOrde red By: Oscar Garcia on 05-15-2023 INR Coag (Bld) [Relative time] 0.9 {INR} [facility] PT Coag (PPP) [Time] 12.4 s 11.7-14.9 [facility] Laboratory - Hematology and Cell countsOrdered By: Oscar Garcia on 05-15-2023 MCH (RBC) [Entitic mass] 32.4 pg 27.0-32.0 [facility] MCHC (RBC) [Mass/Vol] 34.4 g/dL 32-36 [facility] Nucleated RBC/100 WBC (Bld) [Ratio] 0 % 0-5 [facility] Platelet mean volume (Bld) [Entitic vol] 9.2 fL 6.2-12.0 [facility] Platelets (Bld) [#/Vol] 234 10*3/uL 150-450 [facility] No Panel InformationOrdered By: Oscar Garcia on 05-15-2023 Estimated Creatinine Clearance Calc 94.29 ml/min [facility] Estimated GFR (MDRD) Amer 103 mL/min >60 [facility] Comment on above: GFR Calc Estimated GFR (MDRD) Non-Af Amer 85 mL/min >60 [facility] Comment on above: Non- GFR Calc RBC Auto (Bld) [#/Vol]Ordere d By: Oscar Garcia on 05-15-2023 RBC (Bld) [#/Vol] 4.84 10*6/uL 4.6-6.2 [facility] Serum or plasma calcium candelaria urement (mass/volume)Ordered By: Oscar Garcia on 05-15-2023 Calcium [Mass/Vol] 9.1 mg/dL 8.5-10.1 [facility] Serum or plasma creatinine m easurement (mass/volume)Ordered By: Oscar Garcia on 05-15-2023 Creatinine [Mass/Vol] 1.11 mg/dL 0.70-1.30 [facility] Comment on above: The validity of the calculated GFR & GFRAA in patients over 70 years has not been determined. Clinical correlation is essential. Serum or plasma urea nitroge n measurement (mass/volume)Ordered By: Oscar Garcia on 05-15-2023 Urea nitrogen [Mass/Vol] 9 mg/dL 7-18 [facility] Thin prep Papanicolaou smear with manual screeningOrdered By: Oscar Garcia on 05-15-2023 Thin prep Papanicolaou smear with manual screening 4.2 g/dL 3.2-5.0 [facility] Thin prep Papanicolaou smear with manual screening 99 U/L 15-37 [facility] Thin prep Papanicolaou smear with manual screening 8 5-15 [facility] ED Provider Reporton 022 ED Provider Report [facility] Pt Name: JORGE HERNANDEZ MR#: [id number] [address] [place] [address] ACCT: [id number] : 96 EMERGENCY PROVIDER REPORT ADM Date: 07/11/21 ER Physician: Salazar Osborne MD HPI - Eye Trauma/Problems Time Seen by 1700 Source of Information PATIENT Triage Complaint EYE REDNESS WITH ITCHING AND DISCHARGE TODAY Travel Out of [place] in last month No Symptoms of NONE Chief Complaint eye pain Symptom Onset TODAY Associated Symptoms Bilateral Pain, Bilateral Itching, Bilateral Sensitivity to Light, Bilateral Redness, Bilateral Foreign Body Sensation, None Swelling Orbital, None Swelling Eyelid, None Decreased Vision, None Blurred Vision, None Double Vision Severity of Pain Moderate History of Present Illness 25 yo AAM with no PMH is presented to ED with CC of bilateral eye pain, discharge and redness. the redness started today morning, he reports discharge whitish discharge in the morning. He reports photosensitivity, burning, redness, watery discharge and pain. He does not wear contacts. No trauma to eyes. He smokes 1 PPD, drinks alcohol occasionally and smokes marijuana daily. No fever, chills, headache, or hx of sinusitis. ROS is negative. pt recenlty finished course of antibiotic for a skin abscess but he does not remember the name. Past Medical History Past Medical History Reports Depression Past Social History Tobacco Use CIGARETTES Packs/Day MORE THAN 3 Alcohol YES Drug Use YES Review of Systems Review of Systems Allergies Coded Allergies: NO KNOWN ALLERGENS (07/11/21) Nursing Notes Reviewed Yes Medications Reviewed I have reviewed the patient's Home Medication List Constitutional Denies Fever, Denies Chills, Denies Diaphoresis, Denies Weakness EENT Vision Change, Vision Problems. Denies: Sore Throat, Dental Problems, Nasal Congestion, Nasal Drainage. CVS/Pulmonary Denies Chest pain, Denies Hurts to breath, Denies Shortness of breath GI/ Denies: Abdominal Pain, Nausea, Vomiting, Diarrhea, Black Stools. MS/SKIN/LYMPH Denies Extremity Pain, Denies Calf Pain, Denies Leg Pain, Denies Neck Pain, Denies Back Pain Neuro/Psych Denies Headache, Denies Fainting, Denies Dizzy, Denies Loss of Sensation, Denies Difficulty Walking ROS ROS: All other systems reviewed and are negative. Physical Exam -Eye Injury/Prob Vital Signs Vital Signs Vital Signs Verdana 4d Date Time Temp Pulse Resp B/P B/P Pulse O2 O2 Flow FiO2 Mean Ox Delivery Rate 07/11 1750 37.2 103 20 127/69 96 07/11 1614 37.2 103 20 127/ 96 Appearance General Appearance Appears well, Alert, No Distress. Neuro Neuro Oriented x 3, Speech Clear, Moves all extremities Neck NECK Nml Inspection, No thyromegaly, No Lymphadenopathy HEENT HEENT Head Atraumatic, Hearing grossly normal, No Signs of Dehydration, No Eyes Nml Inspection Visual Acuity R 20/102 Visual Acuity L 20/20 Eye Normals Yes No Globe Trauma, Yes Eyelids Nml, Yes Corneas Nml, Yes EOM's Intact, Yes PERRL, Yes Accommodation Nml, Yes Pupils Nml, No Conjunctiva AND Sclera Nml Eye Exam Bilat Erythema, Bilat Injected Head/Face Expanded No Head Trauma Present, No Tenderness, No Swelling, No Eyebrow Laceration Respiratory Respiratory Lungs sounds clear, Respirations nonlabored, Symmetrical expansion CVS Cardiovascular Rate WNL, Rhythm regular, Normal heart sounds, Pulses full,equal Abdomen/Pelvis Abdomen/GI Bowel Sounds Present, Abdomen soft, Non-Tender Extremity Extremity Normal Appearance, Full ROM, Sensation Intact, Motor Intact, No Vasc Compromise Medical Decision Making Course Critical Care time for this pt No Disposition Decision: Discharge Departure Clinical Impression Clinical Impression Primary Impression: Bacterial conjunctivitis of both eyes Electronically Signed eSign Date and Time Arnold Stewart Res RES Salazar Osborne MD 07/13/212006 Normal [facility] Provider Note - ED v3on 02-2 Provider Note - ED v3 Provider Note: Chart Review: ED NOTES ED NOTES: Is a 25-year-old male who has had previous histories of facial abscesses who presents with suppose of abscess left face area for the past 2 weeks. He states he has been squeezing it and has been draining a bit but he presents here for further evaluation. She states a few weeks ago it was sore as well. She is left-handed. 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 He denies any fevers cough cold numbness tingling his headache visual symptom abdominal pain chest pain or shortness of breath. No bowel or bladder changes. He does smoke cigarettes as well. He presents here for further evaluation. He notices his 1 lymph node is swollen as well. He has only taken some minimal medicine for this. Family History, social history. and allergies reviewed REView systems as noted in history of present illness otherwise negative EXAM: Gen.: Vitals noted no distress afebrile. Normal phonation, no stridor, no trismus. ENT: EACs unremarkable. Mastoids nontender. Posterior oropharynx without erythema, exudate, or swelling. Uvula is in the midline and nonedematous. 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 No retropharyngeal mass. Neck: Supple. No meningismus through full range of motion. No lymphadenopathy.No C-spine tenderness. Cardiac: Regular rate rhythm no murmur. Lungs: CTA, No wheezes, rhonchi or rales Abdomen: Soft nontender nonsurgical throughout. Normoactive bowel sounds. Extremities: No peripheral edema, negative Homans bilaterally no cords. Patient is tender at the anterior left shoulder. She does have full range of motion but with tenderness. She is able to hold her arm with good strength. She continues to states she cannot move it even though she is visibly doing so. There is no bruising no swelling. It is very tender aspect. Motion flexion extension at elbow joint. Patient able to AB duct ADduct with good strength. Of these movements. Skin: No rash. Neuro: No focal neurologic deficits. MDM: See procedure note for I&D of abscess face HISTORY OF PRESENTING ILLNESS JORGE is a 25 year old Male and was seen by me at 12-May-2021 13:48 for a chief complaint of abscess . Other complaints include: patient states possible abscess to left lower face x several days(1). Triage Information: Most recent Vital Sign Value Date Temp (F): 97.7 05-12-2021 13:26 Temp (C): 36.5 05-12-2021 13:26 Heart Rate (beats/min): 93 05-12-2021 13:26 Respirations (breaths/min): 16 05-12-2021 13:26 SpO2 (%): 99 05-12-2021 13:26 BP Systolic (mm Hg): 117 05-12-2021 13:26 BP Diastolic (mm Hg): 74 05-12-2021 13:26 PAST MEDICAL HISTORY CURRENT OR FORMER SUBSTANCE USE: Tobacco/Nicotine Use: light user (uses <10 cig/day, OR <0.5 ppd, OR 1 can/pouch loose leaf tobacco per week, OR <0.5 vape pods per day) Alcohol Use: occasionally Drug Use: occasionally,ALLERGIES/INTO LERANCES: No Known Allergies HEALTH HISTORY: No documented data. OUTPATIENT MEDICATIONS: Home Medications Review Status for Reconciliation: Not Done Med Status: Patient Currently Takes Medications Drug Name: ibuprofen 600 mg oral tablet Instructions: 1 tab(s) orally every 6 hours as needed for Pain or Fever Drug Name: Keflex 500 mg oral capsule Instructions: 1 cap(s) orally every 6 hours Drug Name: polymyxin B-trimethoprim 10,000 units-1 mg/mL ophthalmic solution Instructions: 1 drop(s) in each affected eye every 3 hours while awake for 10 days Drug Name: Bactrim DS 800 mg-160 mg oral tablet Instructions: 1 tab(s) orally 2 times a day x 10 days Drug Name: ibuprofen 600 mg oral tablet Instructions: 1 tab(s) orally every 8 hours as needed for pain SIGNIFICANT EVENTS: Immunizations Description:Tdap Past Medical History Description:none CRITICAL CARE VITAL SIGNS: T PRBP SpO2O2(LPM) %FiO2 Method 12-May-2021 13:26:[id number]/74 99 room air, no respiratory support PROGRESS NOTE INCISION & DRAINAGE Procedure Location: bedside Pre-procedure Verification: completed Time Out - Final Verification: completed immediately prior to procedure start Procedure performed by: me Adon(s): none Findings: grossly normal anatomy Specimen: no Estimated Blood Loss (mL): none Post-Procedure Diagnosis: Incision and drainage left face The patient presents with a/an cyst of the left face. The site was anesthetized with mL's of lidocaine 1%. An incision was made using a #11 scalpel. There was a scant amount of drainage noted. DISPOSITION Diagnosis/Annotation: ED Dx Name:Abscess of face Code:L02.01 Disposition: discharged Type: home CONSULT CRITICAL CARE TIME Is this a critically ill patient: no Electronic Signatures: Loan Chadwick (PHYSICIAN)) (Signed 12-May-2021 14:26) Authored: ED Notes, HPI, PMH, Results/Vital Signs, (more content not included)... Normal [facility] Triage - EDon 05-12-2021 Triage - ED Chart Review: ARRIVAL INFORMATION Mode of Arrival: private vehicle CHIEF COMPLAINT JORGE HERNANDEZ is a Male patient with a chief complaint of abscess. Other Complaints: patient states possible abscess to left lower face x several days Triage Date/Time: 12-May-2021 13:26 PATITO: 3V Pain Rating (0-10): 9 = Severe Pain location: face Vital Signs: Temperature: 97.7F ( 36.5C) taken temporal Blood Pressure: 117/74 Mean: Heart Rate: 93 Respiratory Rate: 16 Pulse Oximetry: 99% on room air, no respiratory support. Height: 5 feet 7.00 inches. 170.1 CM Weight: 141.0 pounds. Calculated 64.0 kg. (stated) Calculated BMI (kg/m2): 22.119 Calculated BSA (m2) 1.74 Jose Maria Coma Scale: Best Eye Response: (E4) spontaneous Best Motor Response: (M6) obeys commands Best Verbal Response: (V5) oriented Hurley Score: 15 Allergies: no Patient has homicidal thoughts: no Symptoms Are POSITIVE For: lump, redness, swelling and discharge. Symptoms Are Negative For: abrasion, avulsion, bleeding, laceration, bruising and fever. Risk Screens Suicide Risk Screen In the Past Month: Have you wished you were or wished you could go to sleep and not wake up no In the Past Month: Have you had any actual thoughts of killing yourself no In Your Lifetime: Have you ever done anything, started to do anything, or prepared to do anything to end your life no Interventions: Srinivasan Fall Interventions: LOW INTERVENTIONS: *patient oriented to surroundings and call system, * patient/family falls education completed and documented, *patients fall status communicated during bedside handoff, *whiteboard updated, *mode of toileting discussed with patient, *bed in low position with brakes locked, *call light in reach, * non-skid footwear TRAVEL HISTORY Travel History Coronavirus Screening: no exposure or symptoms Travel Exposure History: NO travel to International locations in the past 30 days PAIN Pain Scale Used: RAISSA Pain Rating (0-10): 9 = Severe Past Medical History: Past Medical History Reviewedyes Electronic Signatures: Hi Su (RINKU) (Signed 12-May-2021 13:28) Authored: Quick Triage, Risk Screens, Pain, Travel History, Chart Review, Scores, Past Medical History Last Updated: 12-May-2021 13:28 by Hi Su) Adonis [facility] Provider Note - ED v3on 11-22 Provider Note - ED v3 Provider Note: Chart Review: ED NOTES ED NOTES: This is a 25-year-old male who presents to the emergency room for pink eye. Patient developed symptoms on Thursday. Patient states that he has bilateral eye redness with drainage. Patient states that in the morning his eyelids are glued shut. Patient has a large amount of thick white discharge from his eyes. Denies any known pinkeye exposure. Patient states that he went to work today and the continuity tester made me work even though she looked at my eyes. Denies any headache, visual changes or eye pain. Patient does not wear glasses or contact lenses. PMH: Denies PSH: Denies Allergies: Denies Social HX: + Smoker, occasional alcohol use, denies any drug use. Family HX: No family history pertinent to current presenting problem. Medications: Denies Physical Exam: Appearance: Alert, oriented , cooperative, in no acute distress. Skin: Intact, dry skin, no lesions, rash, petechiae or purpura. Eyes: PERRLA, EOMs intact, Bilateral conjunctiva injected. Bilateral crusted white drainage surrounding the eyes. ENT: Hearing grossly intact. Pharynx clear, uvula midline. Neck: Supple, without meningismus. Pulmonary: Clear bilaterally with good chest wall excursion. No rales, rhonchi or wheezing. No accessory muscle use or stridor. Cardiac: Normal S1, S2 without murmur, rub, gallop or extrasystole. No JVD, Carotids without bruits. Abdomen: Soft, nontender, active bowel sounds. Musculoskeletal: Full range of motion. no pain, edema, or deformity. Psychiatric: Appropriate mood and affect. HISTORY OF PRESENTING ILLNESS JORGE is a 25 year old Male and was seen by me at 14-Dec-2020 21:06 for a chief complaint of pink eye . Other complaints include: Pt. reports bilateral pink eye since Thursday (1). Triage Information: Most recent Vital Sign Value Date Temp (F): 97.1 12-14-2020 20:15 Temp (C): 36.2 12-14-2020 20:15 Heart Rate (beats/min): 89 12-14-2020 20:15 Respirations (breaths/min): 18 12-14-2020 20:15 SpO2 (%): 99 12-14-2020 20:15 BP Systolic (mm Hg): 124 12-14-2020 20:15 BP Diastolic (mm Hg): 77 12-14-2020 20:15 PAST MEDICAL HISTORY ALLERGIES/INTOLERANCES: No Known Allergies HEALTH HISTORY: No documented data. OUTPATIENT MEDICATIONS: Home Medications Review Status for Reconciliation: Not Done Med Status: Patient Currently Takes Medications Drug Name: ibuprofen 600 mg oral tablet Instructions: 1 tab(s) orally every 6 hours as needed for Pain or Fever Drug Name: Keflex 500 mg oral capsule Instructions: 1 cap(s) orally every 6 hours Drug Name: polymyxin B-trimethoprim 10,000 units-1 mg/mL ophthalmic solution Instructions: 1 drop(s) in each affected eye every 3 hours while awake for 10 days SIGNIFICANT EVENTS: Immunizations Description:Tdap Past Medical History Description:none REVIEW OF SYSTEMS CONSTITUTIONAL: Negative for: chills and fever EYES: POSITIVE for: redness Negative for: lid swelling, pain and vision changes All other systems reviewed and are negative CRITICAL CARE VITAL SIGNS: T PRBP SpO2O2(LPM) %FiO2 Method 14-Dec-2020 20:15:[id number]/77 99 room air, no respiratory support MDM MDM/ED COURSE: Patient remained stable in the emergency room. Patient does not have any visual changes facial swelling to suggest orbital cellulitis. Patient will be treated for bacterial conjunctivitis. Patient received a prescription for Polytrim. Patient was advised to not go to work for at least 48 to 72 hours, take eyedrops and return the emergency room with worsening symptoms. DISPOSITION Diagnosis/Annotation: ED Dx Name:Bacterial conjunctivitis of both eyes Code:H10.9 Disposition: discharged Type: home CONSULT CRITICAL CARE TIME Is this a critically ill patient: no Electronic Signatures: Roya Johnston (TINT LAYER-R D INTERN) (Signed 14-Dec-2020 21:31) Authored: ED Notes, HPI, PMH, ROS, Results/Vital Signs, MDM/ED Course, Clinical Impression, Attestation, Chart Review, Scores Last Updated: 14-Dec-2020 21:31 by Roya Johnston (TINT LAYER-R D INTERN) References: 1. Data Referenced From Triage - ED 14-Dec-2020 20:15 Normal [facility] Risk Screen - Adult Emergenc yon 12-14-2020 Risk Screen - Adult Emergency Preferred Language: Preferred Language: Preferred Language for Discussing Health Care (patient/designee)Azeri Advanced Directives: Advance Directive/DNRno Advance Directive Information Givenpatient/family declined Family Violence Adult: Abuse Screen: Are you or have you been threatened or abused physically, emotionally, or sexually by anyoneno Learning Assessment (Patient): Learning Assessment (Patient): Patient is Able to be Assessed for Learningyes Factors Influencing Readiness to Learnacuteness of illness Factors that Impact Ability to Learnnone Devices/Methods Used to Communicatenone Learning Preferencesaudio Cultural Considerationsnone Developmental Considerationsnone Jehovah'S Witness Considerationsnone Learning Assessment (Other Learner): Learning Assessment (Other Learner): Other learner availableno Pressure Injury/TB/Substance: Pressure Injury: Pressure Injury Present on Admissionno Do you have a coughno Smoking Statusmoderate user (uses 11-30 cig/day, OR 0.5-1.5 ppd, OR 2-3 cans/pouches loose leaf tobacco per week, OR 0.5-1.5 vape pods per day) Tobacco Cessation Education (provide if tobacco use within the last 12 mos) patient declined Alcohol Useoccasionally Drug Useoccasionally marijuana Drug 2 Usedenies Admission Risk Screen: Significant IndicatorsComplete CAGE: CAGE: Is this an injured patient at a Trauma Center ([facility] [place]): no Electronic Signatures: Shazia Suazo (VICTOR M) (Signed 14-Dec-2020 21:09) Authored: Preferred Language, Advanced Directives, Family Violence Adult, Learning Assessment (Patient), Learning Assessment (Other Learner), Pressure Injury/TB/Substance, Pressure Injury, CAGE Last Updated: 14-Dec-2020 21:09 by Shazia Suazo (RN) Normal [facility] Triage - EDon 12-14-2020 Triage - ED Chart Review: ARRIVAL INFORMATION Mode of Arrival: private vehicle CHIEF COMPLAINT JORGE HERNANDEZ is a Male patient with a chief complaint of pink eye. Onset of the Complaint: 14-Dec-2020 20:17 Other Complaints: Pt. reports bilateral pink eye since Thursday Triage Date/Time: 14-Dec-2020 20:15 PATITO: 3V Vital Signs: Temperature: 97.1F ( 36.2C) Blood Pressure: 124/77 Mean: Heart Rate: 89 Respiratory Rate: 18 Pulse Oximetry: 99% on room air, no respiratory support. Height: 5 feet 7.00 inches. 170.1 CM Weight: 139.9 pounds. Calculated 63.5 kg. (stated) Calculated BMI (kg/m2): 21.946 Calculated BSA (m2) 1.73 Hurley Coma Scale: Best Eye Response: (E4) spontaneous Best Motor Response: (M6) obeys commands Best Verbal Response: (V5) oriented Hurley Score: 15 Mask applied: yes Patient has homicidal thoughts: no Symptoms Are POSITIVE For: eye discharge, itching and redness. Symptoms Are Negative For: blurred vision, double vision, FB sensation, eye pain, photophobia and vision changes. Risk Screens Suicide Risk Screen In the Past Month: Have you wished you were or wished you could go to sleep and not wake up no In the Past Month: Have you had any actual thoughts of killing yourself no In Your Lifetime: Have you ever done anything, started to do anything, or prepared to do anything to end your life no Srinivasan Fall Scale Screening Has the patient fallen before (or is the patient in the ED as a result of a fall) has not had a fall Does the patient have an impaired gait does not have impaired gait Is the patient cognitively impaired not cognitively impaired Interventions: Srinivasan Fall Interventions: LOW INTERVENTIONS: *patient oriented to surroundings and call system, * patient/family falls education completed and documented, *patients fall status communicated during bedside handoff, *whiteboard updated, *mode of toileting discussed with patient, *bed in low position with brakes locked, *call light in reach, * non-skid footwear TRAVEL HISTORY Travel History Coronavirus Screening: no exposure or symptoms Travel Exposure History: NO travel to International locations in the past 30 days PAIN Pain Scale Used: RAISSA Past Medical History: Past Medical History Reviewedyes Electronic Signatures: Sowmya Mancia) (Signed 14-Dec-2020 20:19) Authored: Quick Triage, Risk Screens, Pain, Travel History, Chart Review, Scores, Past Medical History Last Updated: 14-Dec-2020 20:19 by Sowmya Mancia) Normal [facility] Vital Signs Date Time Vital Sign Value Performing Clinician Facility 07-05-2024 21:26-0400 Body height 170.18 cm Lizzie Danita DO Work Phone: 9(846)[phone] [place] [address] 07-05-2024 21:26-0400 Body mass index (BMI) [Ratio] 24.1 kg/m2 Lizzie Danita DO Work Phone: 8(867)[phone] [place] [address] 07-05-2024 21:26-0400 Body temperature 97.8 [degF] Lizzie Danita DO Work Phone: 7(646)[phone] [place] [address] 07-05-2024 21:26-0400 Body weight 70 kg Lizzie Danita DO Work Phone: 5(047)921-665812 [place] [address] 07-05-2024 21:26-0400 Diastolic blood pressure 82 mm[Hg] Lizzie Danita DO Work Phone: 5(245)332-356112 [place] [address] 07-05-2024 21:26-0400 Heart rate 120 /min Lizzie Danita DO Work Phone: 2(194)940-005512 [place] [address] 07-05-2024 21:26-0400 Respiratory rate 20 /min Lizzie Danita DO Work Phone: 6(685)494-559812 [place] [address] 07-05-2024 21:26-0400 SaO2% (BldA) [Mass fraction] 99 % Lizzie Danita DO Work Phone: 5(692)807-734612 [place] [address] 07-05-2024 21:26-0400 Systolic blood pressure 162 mm[Hg] Lizzie Danita DO Work Phone: 4(592)931-849712 [place] [address] 03-30-2024 09:20-0500 Body mass index (BMI) [Ratio] 22.7 kg/m2 Lizzie Danita DO Work Phone: 3(019)265-794012 [place] [address] 03-30-2024 09:20-0500 Body weight 65.77 kg Lizzie Danita DO Work Phone: 8(859)681-615112 [place] [address] 03-30-2024 09:20-0500 Diastolic blood pressure 85 mm[Hg] Lizzie Danita DO Work Phone: 1(680)721-523812 [place] [address] 03-30-2024 09:20-0500 Heart rate 92 /min Lizzie Danita DO Work Phone: 9(618)[phone] [place] [address] 03-30-2024 09:20-0500 Respiratory rate 16 /min Lizzie Danita DO Work Phone: 3(616)614-146912 [place] [address] 03-30-2024 09:20-0500 SaO2% (BldA) [Mass fraction] 96 % Lizzie Danita DO Work Phone: 1(842)[phone] [place] [address] 03-30-2024 09:20-0500 Systolic blood pressure 129 mm[Hg] Lizzie Danita DO Work Phone: 1(772)364-029012 [place] [address] 03-25-2024 05:38-0500 Body temperature 98.5 [degF] Lizzie Danita DO Work Phone: 9(169)986-819912 [place] [address] 03-25-2024 05:38-0500 Diastolic blood pressure 71 mm[Hg] Lizzie Danita DO Work Phone: 4(671)218-069612 [place] [address] 03-25-2024 05:38-0500 Heart rate 87 /min Lizzie Danita DO Work Phone: 7(328)594-189212 [place] [address] 03-25-2024 05:38-0500 Respiratory rate 16 /min Lizzie Danita DO Work Phone: 7(616)069-495112 [place] [address] 03-25-2024 05:38-0500 SaO2% (BldA) [Mass fraction] 99 % Lizzie Danita DO Work Phone: 3(110)146-893412 [place] [address] 03-25-2024 05:38-0500 Systolic blood pressure 116 mm[Hg] Lizzie Danita DO Work Phone: 6(750)449-893112 [place] [address] 03-25-2024 04:46-0500 Body mass index (BMI) [Ratio] 23.6 kg/m2 Lizzie Danita DO Work Phone: 6(282)058-209412 [place] [address] 03-25-2024 04:46-0500 Body weight 68.4 kg Lizzie Samayoa DO Work Phone: [facility] 07-28-2023 14:21-0400 Body temperature 97 [degF] [facility] 07-28-2023 14:21-0400 Diastolic blood pressure 84 mm[Hg] [facility] 07-28-2023 14:21-0400 Heart rate 114 /min [facility] 07-28-2023 14:21-0400 Respiratory rate 14 /min [facility] 07-28-2023 14:21-0400 SaO2% (BldA) [Mass fraction] 100 % [facility] 07-28-2023 14:21-0400 Systolic blood pressure 143 mm[Hg] [facility] 07-28-2023 14:19-0400 Body height 170.18 cm [facility] 07-28-2023 14:19-0400 Body mass index (BMI) [Ratio] 24.4 kg/m2 [facility] 07-28-2023 14:19-0400 Body weight 70.76 kg [facility] 06-13-2023 01:16-0400 Body temperature 97 [degF] [facility] 06-13-2023 01:16-0400 Diastolic blood pressure 86 mm[Hg] [facility] 06-13-2023 01:16-0400 Heart rate 87 /min [facility] 06-13-2023 01:16-0400 Respiratory rate 16 /min [facility] 06-13-2023 01:16-0400 SaO2% (BldA) [Mass fraction] 99 % [facility] 06-13-2023 01:16-0400 Systolic blood pressure 145 mm[Hg] [facility] 06-13-2023 00:33-0400 Body height 170.18 cm [facility] 06-13-2023 00:33-0400 Body mass index (BMI) [Ratio] 21.9 kg/m2 [facility] 06-13-2023 00:33-0400 Body weight 63.5 kg [facility] 05-15-2023 20:52-0500 Body temperature 97.1 [degF] [facility] 05-15-2023 20:52-0500 Diastolic blood pressure 87 mm[Hg] [facility] 05-15-2023 20:52-0500 Heart rate 87 /min [facility] 05-15-2023 20:52-0500 Respiratory rate 16 /min [facility] 05-15-2023 20:52-0500 SaO2% (BldA) [Mass fraction] 97 % [facility] 05-15-2023 20:52-0500 Systolic blood pressure 123 mm[Hg] [facility] 05-15-2023 18:06-0500 Body height 171.45 cm [facility] 05-15-2023 18:06-0500 Body mass index (BMI) [Ratio] 24.2 kg/m2 [facility] 05-15-2023 18:06-0500 Body weight 71.21 kg [facility] 05-12-2021 15:26-0500 Body height 170.1 cm Kenny Muller Other Phone: [facility] 05-12-2021 15:26-0500 Body temperature 97.7 [degF] Kenny Muller Other Phone: [facility] 05-12-2021 15:26-0500 Body weight 64 kg Kenny Muller Other Phone: [facility] 05-12-2021 15:26-0500 Diastolic blood pressure 74 mm[Hg] Kenny Muller Other Phone: [facility] 05-12-2021 15:26-0500 Heart rate 93 /min Kenny Muller Other Phone: [facility] 05-12-2021 15:26-0500 Respiratory rate 16 /min Kenny Muller Other Phone: [facility] 05-12-2021 15:26-0500 SaO2% (BldA) [Mass fraction] 99 % Kenny Muller Other Phone: [facility] 05-12-2021 15:26-0500 Systolic blood pressure 117 mm[Hg] Kenny Muller Other Phone: [facility] 12-14-2020 22:15-0400 Body height 170.1 cm Linda Gradyo Other Phone: [facility] 12-14-2020 22:15-0400 Body temperature 97.16 [degF] Linda Mckeonasso Other Phone: [facility] 12-14-2020 22:15-0400 Body weight 63.5 kg Linda Camasso Other Phone: [facility] 12-14-2020 22:15-0400 Diastolic blood pressure 77 mm[Hg] Linda Camasso Other Phone: [facility] 12-14-2020 22:15-0400 Heart rate 89 /min Linda Mckeonasso Other Phone: [facility] 12-14-2020 22:15-0400 Respiratory rate 18 /min Linda Camasso Other Phone: [facility] 12-14-2020 22:15-0400 SaO2% (BldA) [Mass fraction] 99 % Linda Mckeonasso Other Phone: [facility] 12-14-2020 22:15-0400 Systolic blood pressure 124 mm[Hg] Linda Camasso Other Phone: [facility] Encounters Encounter Date Encounter Type Care Provider Facility Start: 07-05-2024 End: 07-05-2024 Emergency department patient visit Lizzie Samayoa DO Work Phone: -Emergency Department Work Phone: Start: 05-23-2024 ambulatory Lizzie Lamasnger [facility] Faci lity:[facility] Start: 04-11-2024 End: 04-11-[address] Lc See MD -Ultrasound, [facility] Work Phone: Start: 04-11-2024 End: 04-11-2024 ambulatory Lizzie Samayoa [facility] Facility:[facility] Start: 03-30-2024 End: 03-30-[address] Lc See MD -[facility] Work Phone: Start: 03-30-2024 End: 03-30-2024 ambulatory Lizzie Samayoa [facility] Facility:[facility] Start: 03-25-2024 End: 03-25-2024 Emergency department patient visit Lauro Rodrigues DO -Emergency Department Work Phone: Start: 03-09-2024 End: 03-09-2024 Patient encounter procedure Lizzie Samayoa DO -Laboratory Work Phone: Start: 03-09-2024 End: 03-09-2024 ambulatory Lizzie Samayoa [facility] Facility:[facility] Start: 02-01-2024 End: 02-02-2024 Emergency department patient visit Oscar Garcia Facility:[facility] Start: 01-20-2024 End: 01-22-2024 ambulatory [facility] Start: 11-23-2023 End: 11-23-2023 Emergency department patient visit Lizzie Samayoa [facility] Facility:[facility] Start: 07-28-2023 End: 07-28-2023 Emergency department patient visit [facility]-Emergency Department Work Phone: Start: 06-13-2023 End: 06-13-2023 Emergency department patient visit [facility]-Emergency Department Work Phone: Start: 05-15-2023 End: 05-15-2023 Emergency department patient visit [facility]-Emergency Department Work Phone: Start: 05-12-2021 End: 05-12-2021 Emergency department patient visit Loan Chadwick [facility] Adult ED Results Pending Start: 12-14-2020 End: 12-14-2020 Emergency department patient visit Roya Johnston [facility] Adult ED Gold 11 Procedures Date Procedure Procedure Detail Performing Clinician Start: 04-11-2024 Ultrasound elastogra phy of liver Lizzie Samayoa DO Work Phone: Start: 05-15-2023 Plain chest X-ray Plan of Treatment Date Care Activity Detail Author Start: 07-05-2024 [facility] Start: 03-25-2024 [facility] Start: 07-28-2023 [facility] Start: 06-13-2023 Incision & drainage abscess simple/single I&D ABSCESS SIMPLE/SINGLE [facility] Start: 05-15-2023 [facility] Acute hepatitis 1999 panel - Serum [facility] Blood ammonia measurement [facility] C reactive protein [Mass/volume] in Serum or Plasma [facility] CBC W Auto Different ial panel - Blood [facility] Ceruloplasmin [Mass/volume] in Serum or Plasma [facility] Comprehensive metabo lic 1999 panel - Serum or Plasma [facility] Copper [Moles/volume ] in Serum or Plasma [facility] Cytoplasmic ANCA Screen [facility] Ferritin [Mass/volum e] in Serum or Plasma [facility] Folic acid measurement [facility] Gamma glutamyl trans ferase measurement [facility] Hemoglobin A1c/Hemoglobin.total in Blood [facility] HIV 1+2 Ab+HIV1 p24 Ag [Presence] in Serum or Plasma by Immunoassay [facility] Iron and Iron bindin g capacity panel - Serum or Plasma [facility] Lipid 1996 panel - S bren or Plasma [facility] Mitochondria Ab [Pre sence] in Serum [facility] Patient Education [facility] Work Phone: Patient referral [facility] Work Phone: Procedure [facility] Prothrombin time [facility] Smooth muscle Ab [Presence] in Serum [facility] Thyroid stimulating hormone measurement [facility] Vitamin B12 measurement [facility] Vitamin D, 25-hydrox y measurement [facility] Payers Date Payer Category Payer Unknown [id number] 2023 Medicaid [id number] 2023 Self-pay Unknown [employer] [place] [employer] [place] [place] MEDICAID OTHER [id number] Unknown [id number] Unknown [id number] Unknown [id number] Unknown [id number] Unknown [id number] Unknown [id number] Unknown [id number] Unknown [id number] Unknown [id number] Unknown [id number] Unknown [id number] [id number] Unknown [id number] [id number] Unknown [id number] [id number] Unknown [id number] [id number] Unknown [id number] Social History Date Type Detail Facility [facility] [place] Start: 05-15-2023 End: 07-28-2023 Tobacco smoking consumption unknown [facility] Start: 1995 Sex Assigned At Male [facility] Start: 07-05-2024 Tobacco smoking status NHIS Smokes tobacco daily (finding) [facility] Start: 07-05-2024 Sex Male (finding) [facility] Mental Status Date Assessment Result Facility 07-05-2024 Cognitive function Level Of Cons ciousness Awake;Alert;Appropriate;Follow s Commands [facility] Work Phone: 03-25-2024 Cognitive function Level Of Cons ciousness Awake;Alert;Appropriate;Follow s Commands [facility] Work Phone: Evaluation note 03-30-2024 Note Date & Type Note Facility 03-30-2024 Evaluation note Diagnosis Onset Date Resolution Alcohol use disorder chronic Angel annel 2024 9:00am Alcoholic hepatitis chronic Janua ry 2024 9:00am [facility] Work Phone: Discharge summary note 01-22-2024 Note Date & Type Note Facility 01-22-2024 Note [facility] Medical Records Department [address] [place] [address] Discharge Summary 01/22/24 1550 MR#: [id number] Acct: [id number] Name: JORGE HERNANDEZ Rep #: [id number] : 1995 28 From: Devonte Petit DO PCP: Lizzie Samayoa DO Status:DIS IN Location: [place] [id number] Providers Date of Admission: 01/20/24 Date of Discharge: 01/22/24 Primary Care Physician: Lizzie Samayoa DO Consultations 01/20/24 12:33 Consult: Gastroenterology Routine Consulting Provider: [facility] Reason for Consult: liver disease EMERGENT Consult: No MD Notified: Yes Date Notified: 01/20/24 Time Notified: 10:03 Method of Notification: Verbal Reason For Visit: ALCOHOLIC HEPATITIS, ASCITES Diagnosis Discharge Diagnosis (1) Ascites: Status: Acute Code(s): R18.8 - Other ascites (2) Acute alcoholic hepatitis: Status: Acute Code(s): K70.10 - Alcoholic hepatitis without ascites (3) Cirrhosis: Status: Acute Code(s): K74.60 - Unspecified cirrhosis of liver Plan 1. Acute alcoholic hepatitis-patient's liver enzymes have improved, I will check them again tomorrow #2 ascites secondary to suspected alcoholic liver disease-patient underwent paracentesis yesterday with removal of 2500 cc of fluid, patient is now on a beta-mora and spironolactone #3 substance abuse disorder with chronic alcohol intake-patient will be seen by addiction social work job titles, CIWA scores will be monitored and he will be given Ativan if needed and be placed on phenobarbital with a taper #4 GERD-patient is on a daily PPI #5 alcohol intoxication present on admission Total clinical time spent by myself addressing the patient's medical issues, reviewing all of his data, and collaborating with patient's care team: 35 minutes Medications at Discharge Home Medications oxycodone-acetaminophen 5 mg-325 mg tablet (Percocet) 1 tab PO Q6H PRN pain 3 days #12 tabs 11/23/23 carvedilol 6.25 mg tablet 6.25 mg PO BID #60 tabs 01/22/24 hydroxyzine pamoate 25 mg capsule 50 mg (2 x 25 mg) PO Q4H PRN PRN mild anxiety #30 caps 01/22/24 midodrine 5 mg tablet 5 mg PO TIDCM #90 tabs 01/22/24 pantoprazole 40 mg tablet,delayed release 40 mg PO BID #60 tabs 01/22/24 spironolactone 50 mg tablet 50 mg PO DAILY #30 tabs 01/22/24 Hospital Course Operations None Procedures Paracentesis Summary of Care Provided Minutes Spent on Discharge: 31 Hospital Course: This 28-year-old black male was seen in the emergency room at [facility] after he had seen his PCP the day before and had been recommended to go to the ER for evaluation of abdominal distention. Patient did not go to the ER that day and subsequently showed up to the ER the following day for evaluation of his abdominal distention. Patient had a long history of alcohol usage starting at the age of 13. Workup in the emergency room noted the patient to be intoxicated, abdomen was moderately distended, CT of the abdomen and pelvis revealed diffuse ascites, there is also noted to be possible colitis but the patient had no symptoms of colitis. Patient's blood alcohol level was 295. Discussions were carried out with the patient and he agreed to admission to the hospital and he agreed to enroll in the ramp program. He was admitted to [place] [address] and underwent a paracentesis with removal of 2500 cc of fluid. Patient was seen by addiction social work job titles, he declined to agree to go to an inpatient alcohol detox program. Patient understood that continued drinking would be very detrimental to his health and that he probably had cirrhosis currently. Patient was seen in consultation by gastroenterology and he was placed on Aldactone and a beta-mora. Patient had no serious signs of alcohol withdrawal during his hospitalization. Patient was felt to be stable for discharge on 01/22/2024, on that day he was seen and examined: On examination he appeared in good health and spirits. Vital signs as documented. Skin warm and dry and without overt rashes. Neck without JVD, neck was supple, trachea midline, thyroid was normal. Lungs clear bilaterally, normal air movement was noted. Heart exam notable for regular rhythm, normal sounds and absence of murmurs, rubs or gallops. Abdomen unremarkable and without evidence of organomegaly, masses, or abdominal aortic enlargement. Bowel sounds are present, abdomen is not distended. Extremities nonedematous, no cyanosis was noted, no clubbing was noted. Neuro: Cranial nerves II through XII are grossly intact, no focal motor deficits were noted, sensation to light touch and pinprick intact, motor exam 5/5 throughout. Psych: Patient is alert and oriented x3, he does not appear anxious or depressed, he does not appear agitated. Patient was discharged home in stable condition on 01/22/2024, he was given resources by addiction soci (more content not included)... [facility] Discharge summary 07-28-2023 Note Date & Type Note Facility 07-28-2023 Discharge summary Note Date/Time July 28, 2023 3:09pm [facility] Medical Records Department [address] [place] [address] Emergency Department Summary 07/28/23 MR#: [id number] Acct: [id number] Name: JORGE HERNANDEZ Rep #:[id number] : 1995 27 From: Hira Henry PCP: Care Physician,No Primary Status :PRE ER Location: ED HPI History of Present Illness Chief Complaint: Abscess PFSH PFSH Home Medications omeprazole 20 mg capsule,delayed release 20 mg PO DAILY #30 CAPSULES 05/15/23 [Rx Last Taken Unknown] clindamycin HCl 300 mg capsule (Cleocin HCl) 300 mg PO Q6H #40 CAPSULES 06/13/23[Rx Last Taken Unknown] clindamycin HCl 300 mg capsule 300 mg PO Q8H #30 caps 07/28/23 [Rx Last Taken Unknown] Allergy/AdvReac Type Severity Reaction Status Date / Time No Known Allergies Allergy Verified 06/13/23 00:33 Surgical History History of herniorrhaphy Social History (Updated 05/15/23 @ 18:[address] Oscar Garcia, DO) Smoking Status: Current every day smoker tobacco type: cigarettes alcohol intake: current alcohol intake frequency: 3 or more drinks per day Alcohol type: beer substance use type: marijuana EXAM Physical Exam Const Vital Signs: 07/28/23 14:19 07/28/23 14:19 07/28/23 14:21 Temperature 97 F L 97 F L Temperature Source Temporal Temporal Pulse Rate 114 H 113 H 114 H Respiratory Rate 12 14 14 Blood Pressure 143/84 H 143/84 H 143/84 H Blood Pressure Mean 103 103 103 Pulse Ox 97 97 100 Oxygen Delivery Method Room Air Room Air Room Air [facility] Narrative Medical decision making narrative: HISTORY OF PRESENT ILLNESS: 27-year-old male presents with concern for facial abscess. He states he was seen here recently for similar and had it drained however he has not taken his antibiotics. He states REVIEW OF SYSTEMS: Pertinent positives: Facial swelling Pertinent negatives: Difficulty swallowing, vomiting PHYSICAL EXAM: Nursing triage notes reviewed, Vital signs reviewed Constitutional: please see mdm HENT: MMM, large 3 x 3 cm area of fluctuance induration to the right jaw consistent with abscess. No crepitus or bullae noted. No submandibular edema. Uvula midline. Eyes: Pupils equal round and reactive to light, Extraocular muscles intact Neck: No stridor, no JVD, full neck ROM Lungs: Clear to auscultation, No wheezing or rales. No increased work of breathing, no conversational dyspnea, no accessory muscle use, no nasal flaring. No respiratory distress noted Heart: Regular rate and rhythm, No murmurs, No rubs and No gallops, 2+ distal pulses (radial, femoral, posterior tibial) in all extremities Skin: No abscess as noted above MEDICAL DECISION MAKING: Chief Complaint: Facial abscess External records reviewed: Reviewed prior procedure note detailing incision and drainage in May 2022 Factors affecting care: History of facial abscess Social determinants of health: none History obtained from others: none Consults: none [facility] Narrative: Patient was initially tachycardic otherwise afebrile. Exam with evidence of abscess. No submandibular edema noted I considered the following differential diagnosis: Cellulitis, abscess, necrotizing fasciitis Performed incision and drainage as below Procedure: Incision and Drainage simple abscess noted to right jaw The procedure was performed by myself. Location: Right jaw Risks and benefits: Risks, benefits, and alternatives were discussed. Questions were sought and answered, and verbal consent provided for the procedure. Anesthesia: 1% lidocaine without epinephrine Procedure Description: Used 18-gauge needle with aspiration of 3 cc of purulent fluid The patient tolerated the procedure well without complications. Gave p.o. clindamycin for 10-day course. Gave PCP follow-up. Given strict return precautions. The patient and/or family, caregivers express understanding. The patient and/orfamily, caregivers agrees with the plan. Shared decision making: I will have a discussion with the patient and or visitors regarding risk/benefits of further testing or admission. They will be made aware of of the risk/benefits inherent in this decision they will be given the opportunity to voice understanding. Total critical care time today provided was at least 0 minutes. This excludes separately billable procedures. Critical care time (if documented) is secondary to the patient having high probability of clinically significant/life threatening deterioration in the patient's condition which required my urgent intervention. Impression: 1. Facial abscess 2. Tachycardia Dispo: Discharge home This note was generated with [employer] dictation software. It may contain incorrectwords, spelling, and punctuation that were not noted in review of the chart prior to signing. Discharge Plan Triage Chief Complaint: Abscess ED Provider: Hira Barakat Dx/Rx/DC Orders Instructions: ED Abscess Incision And Drainage Prescriptions: New clindamycin HCl 300 mg capsule 300 mg PO Q8H Qty: 30 0RF No Action omeprazole [omeprazole] 20 mg capsule,delayed release(DR/EC) 20 mg PO DAILY Qty: 30 0RF clindamycin HCl [Cleocin HCl] 300 mg capsule 300 mg PO Q6H Qty: 40 0RF Stand Alone Forms: ED Work / School Excuse Primary Care Provider: Care Physician,No Primary Referrals: Kevin Salas MD [Med Staff - Active Staff] - Activity Restrictions/Additional Instructions: Thank you for trusting us with your care today! Please take Tylenol (2 pills, 650 mg), ibuprofen (2 pills, 400 mg) every 6 hoursas needed for pain and fever control. Please take clindamycin as prescribed. Please continue entire course Please wash your face twice a day. Please try to keep your facial hair and short as to facilitate bacterial clearance. Please return to the emergency department if your symptoms change or worsen. Specifically develop swelling underneath anything jaw, difficulty swallowing, vomiting or inability tolerate antibiotics by mouth Please follow with your primary care physician for further outpatient evaluationand management. Disposition Disposition: Home, Self Care What to do if you have Problems For any increased pain, shortness of breath, bleeding, nausea or vomiting, chestpain, or any unexpected problems, contact your Primary Care Provider. Call [employer] ([phone]) or report to the closest Emergency Room. Call 911 if necessary. 07/28/23 1550 <Electronically signed by Hira Barakat DO> Cosigner Signature (if applicable): CC: No Primary Care Physician ~ Signed [facility] Work Phone: Evaluation note Note Date & Type Note Facility Evaluation note No assessment information availa ble [facility] Work Phone: Hospital Discharge instructions Note Date & Type Note Facility Hospital Discharge instructions Additional Instructions Thank you for trusting us with your care today! Please take Tylenol (2 pills, 650 mg), ibuprofen (2 pills, 400 mg) every 6 hours as needed for pain and fever control. Please take clindamycin as prescribed. Please continue entire course Please wash your face twice a day. Please try to keep your facial hair and short as to facilitate bacterial clearance. Please return to the emergency department if your symptoms change or worsen. Specifically develop swelling underneath anything jaw, difficulty swallowing, vomiting or inability tolerate antibiotics by mouth Please follow with your primary care physician for further outpatient evaluation and management. [facility] Work Phone: Hospital Discharge instructions Note Date & Type Note Facility Hospital Discharge instructions Additional Instructions Your exam does not show any obvious drainable fluid collection at this time. Therefore take the antibiotic as directed to help resolve the infection and return to the ER should you have any further concerns or worsening of symptoms. [facility] Work Phone: Reason for referral (narrative) Note Date & Type Note Facility Reason for referral (narrative) No reason for referral information available [facility] Work Phone: Summary Purpose Family History No Family History Records Found Relationship Condition Age at Onset Recorded Date/T ruben father Hypertension Unknown Alcoholism Unknown Addiction to drug Unknown mother Malignant neoplasm of breast Unknown Malignant neoplasm of lung Unknown Advance Directives No Advanced Directives Records Found Advance Directive Response Recorded Date/ Time Living Will No May 15 6:25pm Power of Hand [employer] No May 15, 2023 6:25pm Advance Directive Response Recorded Date/ Time Living Will No June 13, 2023 12:36am Power of Hand [employer]er No June 12 12:36am Advance Directive Response Recorded Date/ Time Living Will No July 28, 2023 3: 21pm Power of Hand [employer] No July 28, 2023 3:21pm Advance Directive Response Recorded Date/ Time Living Will No July 05, 2024 10:14pm Do you have a Healthcare Power of Hand [employer]er? No July 05, 2024 10:14pm Living Will No March 25 5:49am Do you have a Healthcare Power of Hand [employer]er? No March 25, 2024 5:49am Chief Complaint and Reason for Visit Chief Complaint VOMITING BLOOD Chief Complaint VOMITING BLOOD abscess Chief Complaint VOMITING BLOOD abscess ABSCESS Chief Complaint Admit Date pain/other March 25, 2024 4: 45am ALCOHOLIC HEPATITIS March 30, 2024 9: 00am CIRRHOSIS April 11, 2024 8 :13am ABSCESS July 05, 2024 9:2 5pm Reason for Visit Admit Date Alcohol use disorder March 30, 2024 9 :00am Alcoholic hepatitis March 30, 2024 9: 00am Additional Source Comments <item><item> Privacy Markings (unrecogniz ed section and content) Section Author: Holley Gustafson PROHIBITION ON REDISCLOSURE OF CONFIDENTIAL INFORMATION This notice accompanies a disclosure of information concerning a client made to you with the consent of such client. Section Author: Holley Gustafson PROHIBITION ON REDISCLOSURE OF CONFIDENTIAL INFORMATION This notice accompanies a disclosure of information concerning a client made to you with the consent of such client. (unrecognized sect ion and content) No Status Records FoundNo Status Records FoundNo Status Records Found INFORMATION SOURCE (unrecogn ized section and content) DATE CREATED AUTHOR 05/24/2021 [facility] DATE CREATED AUTHOR AUTHOR'S ORGANIZ ATION 07/13/2021 [facility] DATE CREATED AUTHOR AUTHOR'S ORGANIZ ATION 07/11/2024 [facility] Care Teams (unrecognized sec tion and content) Team Status: Active Member Role Status Dates No Primary Care Physician Primary Care Provider Active Team Status: Inactive Member Role Status Dates Dr. Oscar Garcia , DO Emergency Provider Active No Primary Care Physician Primary Care Provider Active Team Status: Inactive Member Role Status Dates Dr. Oscar Garcia , DO Attending Provider, Emergency P rolilli Active No Primary Care Physician Primary Care Provider Active Team Status: Inactive Member Role Status Dates No Primary Care Physician Primary Care Provider Active Dr. Flaca Yoon , DO Emergency Provider Active Team Status: Inactive Member Role Status Dates No Primary Care Physician Primary Care Provider Active Dr. Flaca Yoon , DO Attending Provider, Emergency Pro vider Active Team Status: Inactive Member Role Status Dates No Primary Care Physician Primary Care Provider Active Dr. Hira Barakat , DO Emergency Provider Active Team Status: Active Member Role Status Dates Lizzie Samayoa [facility], DO Primary Care Provider Active Team Status: Inactive Member Role Status Dates Lizzie Wellingtoner [facility], DO Primary Care Provider Active Start: March 09, 2024 End: March 09, 2024 Lizzie Lamasnger VSC, DO Attending Provider Active Start: March 09, 2024 End: March 09, 2024 Lizzie Lamasnger VSC, DO Referring Provider Active Start: March 09, 2024 End: March 09, 2024 Team Status: Inactive Member Role Status Dates Lizzie Danita VSC, DO Primary Care Provider Active Start: March 25, 2024 End: March 25, 2024 Dr. Lauro Rodrigues DO Attending Provider Active Start: March 25, 2024 End: March 25, 2024 Dr. Lauro Rodrigues DO Emergency Provider Active Start: March 25, 2024 End: March 25, 2024 Team Status: Inactive Member Role Status Dates Lizzie Lamasnger VSC, DO Primary Care Provider Active Start: March 30, 2024 End: March 30, 2024 Lizzie Danita VSC, DO Referring Provider Active Start: March 30, 2024 End: March 30, 2024 Dr. Lc See MD Attending Provider Active Start: March 30, 2024 End: March 30, 2024 Team Status: Inactive Member Role Status Dates Lizzie Lamasnger VSC, DO Primary Care Provider Active Start: April 11, 2024 End: April 11, 2024 Dr. Lc See MD Attending Provider Active Start: April 11, 2024 End: April 11, 2024 Dr. Lc See MD Referring Provider Active Start: April 11, 2024 End: April 11, 2024 Team Status: Inactive Member Role Status Dates Lizzie Lamasnger VSC, DO Primary Care Provider Active Start: July 05, 2024 End: July 05, 2024 Dr. Lauro Rodrigues DO Emergency Provider Active Start: July 05, 2024 End: July 05, 2024 Goals (unrecognized section and content) Goals may be documented in a n alternate sectionGoals may be documented in an alternate sectionGoals may be documented in an alternate sectionGoals may be documented in an alternate section FOR RECORDS PERTAINING TO PATIENTS WHO ARE OR HAVE BEEN ENROLLED IN A CHEMICAL DEPENDENCY/SUBSTANCEABUSE PROGRAM, SOME INFORMATION MAY BE OMITTED. This clinical summary was aggregated from multiple sources. Caution should be exercised in using it in the provision of clinical care. This summary normalizes information from multiple sources, and as a consequence, information in this document may materially change the coding, format and clinical context of patient data. In addition, data may be omitted in some cases. CLINICAL DECISIONS SHOULD BE BASED ON THE PRIMARY CLINICAL RECORDS. [facility]. provides no warranty or guarantee of the accuracy or completeness of information in this document.
[2025-03-18 07:53] VITALS: BP 125/76; PULSE 75; RESP 16; TEMP 36.9; O2SAT 100
== END 2025-03-18 07:58 | disposition home or self-care (01) ==
PROVIDERS: Emergency Provider Emergency Medicine; PCP Family Medicine; Visit Provider Emergency Medicine
DX: K02.9 Dental caries, unspecified (principal); G89.29 Other chronic pain; F17.210 Nicotine dependence, cigarettes, uncomplicated; G50.1 Atypical facial pain; R22.0 Localized swelling, mass and lump, head
CPT/HCPCS: 99282